=== PATIENT | male | born 1980 | race Caucasian/White ===

== ENCOUNTER 2018-02-14 12:41 | Outpatient (CLI) | payer BC, OTHER ==
--- NOTE | 2018-02-14 14:52 | RAD ---
PA AND LATERAL CHEST: Indication: History of dyspnea. Comparison: 11-24-14 FINDINGS: Lungs are clear. Cardiomediastinal silhouette is within normal limits. There is mild spondylosis of t he thoracic spine. The examination is not appreciably changed from the comparison study. IMPRESSION: No acute abnormality. POS: [facility]
== END 2018-02-14 12:42 | disposition home or self-care (01) ==
LOC: RAD 12:41
PROVIDERS: ATTEND Internal Medicine Critical Care Medicine
DX: R06.00 Dyspnea, unspecified (principal)
CPT/HCPCS: 71046

== ENCOUNTER 2018-05-01 01:39 | Emergency (ER) | payer BC ==
[2018-05-01] MEDS ORDERED: Activated Charcoal/Sorbitol 25 GM/120 ML TUBE ONE (01:50)
[2018-05-01 02:09] LABS: #Eosinphils 0.2 thou/uL (0.0-0.7); #Lymphocytes 3.5 thou/uL (1.20-3.40); #Neutrophils 5.4 thou/uL (1.40-6.50); %Basophils 0.5 % (0.0-1.0); %Eosinophils 1.9 % (0.0-10.0); %Lymphocytes 34.3 % (21.0-51.0); %Monocytes 10.2 % (0.0-10.0); %Neutrophils 53.1 % (42.0-75.0); Hemoglobin 17.4 g/dL (14.0-18.0); Mean Corpuscular HGB CONC 35.7 g/dL (32.0-36.0); Mean Corpuscular Hemoglobin 32.1 pg (27.0-31.0); Mean Corpuscular Volume 89.7 fl (80.0-94.0); Mean Platelet Volume 9.5 fL (7.4-10.4); Platelet Count 186 thou/uL (130-400); RBC Distribution Width 11.5 % (11.5-14.5); Red Blood Cell (RBC) Count 5.41 mill/uL (4.70-6.10); White Blood Cell (WBC) Count 10.1 thou/uL (4.8-10.8)
[2018-05-01 02:09] LABS: Base Excess-Venous -0.8 mmol/L (0 (+/- 2.5)); Bicarbonate (HCO3v) 22.8 mmol/L (1.0-85.0); CO2 Tension (PvCO2) 34.4 mmHg (41.0-51.0); Calcium, Ionized 1.09 mmol/L (1.12-1.32); Hemoglobin - Calc 16.9 g/dL (12.0-18.0); T. Carbon Dioxide 23.8 mmol/L (1.0-85.0); pH (Venous) 7.429 (7.35-7.45); vO2 Saturation-calc 96.3 % (94-98)
[2018-05-01 02:21] LABS: Acetaminophen Less than 6.0 mcg/mL (10.0-30.0); Alcohol Less than 10 mg/dL (Less than 10); CK (CPK) 355 U/L (30-200); Salicylate Less than 8.0 mg/dL (15.0-30.0)
[2018-05-01 02:22] LABS: ALT (SGPT) 20 U/L (8-55); AST (SGOT) 21 U/L (5-34); Albumin 4.1 g/dL (3.5-5.0); Alkaline Phosphatase 82 U/L (40-150); Anion Gap 14 mmol/L (10-20); BUN (Urea Nitrogen) 11 mg/dL (8.9-20.6); Bilirubin, Total 1.1 mg/dL (0.2-1.2); Calc. Creatinine Clearance 0 mL/min (70-130); Carbon Dioxide 22 mmol/L (22-29); Chloride 105 mmol/L (98-107); Estimated GFR-MDRD 59; Globulin 2.4 g/dL (2.4-3.5); Glucose 116 mg/dL (70-105); Potassium 4.1 mmol/L (3.5-5.1); Protein, Total 6.5 g/dL (6.0-8.3); Sodium 137 mmol/L (136-145)
[2018-05-01 05:14] LABS: Bilirubin Negative (Negative); Blood, Urine Negative (Negative); Clarity CLEAR (Clear); Glucose, Urine (Dipstick) Negative (Negative); Leukocyte Negative (Negative); Nitrite Negative (Negative); Protein, Urine (Dipstick) Negative (Neg-Trace); Specific Gravity, Urine 1.024 (1.002-1.036); pH, Urine 6.5 (5.0-9.0)
[2018-05-01 05:25] LABS: Amphetamine Detected (NotDetected); Barbiturates Screen Not Detected (NotDetected); Benzodiazepine Screen Not Detected (NotDetected); Cocaine Metabolite Screen Not Detected (NotDetected); Medtox Control Line Valid? VALID (VALID); Medtox Reader # READER 1; Methadone Not Detected (NotDetected); Methamphetamine Not Detected (NotDetected); Opiate Screen Not Detected (NotDetected); Oxycodone Screen Not Detected (NotDetected); Phencyclidine (PCP) Not Detected (NotDetected); THC/Cannabinoid Screen Not Detected (NotDetected); Tricyclic Screen Detected (NotDetected)
[2018-05-01 06:40] LABS: Acetaminophen Less than 6.0 mcg/mL (10.0-30.0); Alcohol Less than 10 mg/dL (Less than 10); Salicylate Less than 8.0 mg/dL (15.0-30.0)
== END 2018-05-01 18:00 ==
LOC: ERS 01:39
DX: T39.312A Poisoning by propionic acid derivatives, intentional self-harm, initial encounter (principal); F32.9 Major depressive disorder, single episode, unspecified; E03.9 Hypothyroidism, unspecified; K21.9 Gastro-esophageal reflux disease without esophagitis; G43.909 Migraine, unspecified, not intractable, without status migrainosus; F41.9 Anxiety disorder, unspecified; Z79.899 Other long term (current) drug therapy
CPT/HCPCS: 36415; 80053; 80306; 80307; 81003; 82330; 82550; 82803; 84443; 85025; 93005; 96360

== ENCOUNTER 2020-09-06 08:17 | Outpatient (CLI) | payer BC ==
--- NOTE | 2020-09-06 11:54 | RAD ---
EXAM: XR UGI Single Contrast No Air PROVIDED CLINICAL HISTORY: Morbid obesity. Upper GI prior to bariatric surgery. COMPARISON: None FINDINGS: A single contrast upper GI was performed. Normal esophageal motility was demonstrated during the exam . The esophagus has a normal appearance without evidence of a mucosal irregularity or narrowing. No significant hiatal hernia is appreciated. There is no gastroesophageal reflux noted during the exam. The stomach, duodenum, and visualized proximal small bowel demonstrate a normal appearance. Ligament of Treitz is located in normal position. IMPRESSION: Normal upper GI.
== END 2020-09-06 08:18 | disposition home or self-care (01) ==
LOC: RAD 08:17
PROVIDERS: ATTEND Specialist
DX: E66.01 Morbid (severe) obesity due to excess calories (principal)
CPT/HCPCS: 74240

== ENCOUNTER 2020-09-16 10:06 | Outpatient (CLI) | payer BC | END 2020-09-16 10:07 | disposition home or self-care (01) | LOC: DTY/OP 10:06 | PROVIDERS: ATTEND Specialist | DX: Z01.818 Encounter for other preprocedural examination (principal); E66.01 Morbid (severe) obesity due to excess calories | CPT/HCPCS: 36415; 80053; 80061; 82306; 82607; 82728; 82746; 83036; 83540; 84425; 84436; 84443; 84480; 85025; 97802 ==

== ENCOUNTER 2020-10-29 06:16 | Outpatient (CLI) | payer BC, OTHER ==
[2020-09-03 12:38] LABS: SARS-CoV-2 MS2 Positive; SARS-CoV-2 N Gene Negative; SARS-CoV-2 S Gene Negative; SARS-CoV-2 by NAA Not Detected (NotDetected); SARS-CoV-2 orf1ab Negative
[2020-10-29 16:46] LABS: SARS-CoV-2 MS2 Positive; SARS-CoV-2 N Gene Negative; SARS-CoV-2 S Gene Negative; SARS-CoV-2 by NAA Not Detected (NotDetected); SARS-CoV-2 orf1ab Negative
== END 2020-10-29 06:17 | disposition home or self-care (01) ==
LOC: LABBT 06:16
PROVIDERS: ATTEND Specialist
DX: Z01.812 Encounter for preprocedural laboratory examination (principal); Z20.828 Contact with and (suspected) exposure to other viral communicable diseases; E29.1 Testicular hypofunction; K21.9 Gastro-esophageal reflux disease without esophagitis; E66.01 Morbid (severe) obesity due to excess calories; E11.9 Type 2 diabetes mellitus without complications; I10 Essential (primary) hypertension
CPT/HCPCS: 87635; U0003

== ENCOUNTER 2020-10-29 08:15 | Inpatient (IN) | payer BC ==
--- NOTE | 2020-11-01 13:30 | HP ---
ADDENDUM: This is an addendum to [facility] dictation #[id number], dictated 08/26/2020. Zachary Pimentel is a 39-year-old male patient, scheduled for laparoscopic gastric bypass with comorbidities of GERD, type 2 diabetes mellitus, hypertension, PTSD. The patient was seen on 08/26/2020 initially with the initial presentation, 5 foot 10 inches, 265 pounds, 38 BMI and since that time, has lost weight 256 pounds, 36 BMI, now was scheduled for laparoscopic sleeve gastrectomy. He has seen Dr. Arnav Wilkins in the past, had normal echocardiogram, 70% ejection fraction with diastolic dysfunction, grade 2, without any coronary artery disease. The patient is asymptomatic from cardiac standpoint. The patient is on numerous medications. He will need to crush these or empty the capsules per Pharmacy. He understands risks and benefits. Questions answered. We will proceed with laparoscopic gastric bypass. See his recent history and physical #[id number], dictated 08/26/2020 for details of past history and medication list. PHYSICAL EXAMINATION: VITAL SIGNS: On initial presentation, 265 pounds, 38 BMI. Today, 256 pounds, 36 BMI. 121/76, 70, 97.3 degrees. LUNGS: Clear to auscultation. CARDIAC: Regular rate and rhythm. No murmur or gallop. ABDOMEN: Soft, nontender, obese, protuberant. EXTREMITIES: Unremarkable. ASSESSMENT AND PLAN: Morbid obesity with significant reflux and diabetes mellitus. Plan, laparoscopic gastric bypass. He understands risks and benefits and consents. Job ID: [id number]
[2020-11-02 12:59] VITALS: BMI 38.0
[2020-11-03] MEDS ORDERED: SUGAMMADEX SODIUM 200 MG/2 ML VIAL ONE (10:25)
[2020-11-03] MEDS ORDERED: Fentanyl 250 MCG/5 ML VIAL ONE (10:25)
[2020-11-03] MEDS ORDERED: Bupivacaine 0.25% HCL 30 ML VIAL ONE (10:28)
[2020-11-03] MEDS ORDERED: Lidocaine 1% w/Epinephrine 1:100K 20 ML VIAL ONE (10:28)
[2020-11-03] MEDS ORDERED: Acetaminophen 500 MG TAB ONE (10:32)
[2020-11-03] MEDS ORDERED: Scopolamine 1.5 mg/72 hour Patch ONE (10:32)
[2020-11-03] MEDS ORDERED: Ketorolac Tromethamine 30 MG/ML VIAL ONE ×2 (10:33→17:55)
[2020-11-03] MEDS ORDERED: cefOXitin Sodium/Dextrose 2 GM/50 ML BAG ONE (10:33)
[2020-11-03] MEDS ORDERED: Heparin 5,000 UNITS/ML VIAL ONE (10:33)
[2020-11-03] MEDS ORDERED: Succinylcholine 200 MG/10 ml SYRINGE FS ONE (10:35)
[2020-11-03] MEDS ORDERED: ePHEDrine 50 MG/ML VIAL ONE (10:35)
[2020-11-03] MEDS ORDERED: Rocuronium Bromide 10 MG/ML (10ML VIAL) ONE (10:35)
[2020-11-03] MEDS ORDERED: Glycopyrrolate 0.2 MG/ML 5 ML SYRINGE ONE (10:35)
[2020-11-03] MEDS ORDERED: PROPOFOL 200 MG/20 ML VIAL ONE (10:35)
[2020-11-03] MEDS ORDERED: Dexamethasone 20 MG/5 ML VIAL ONE (10:35)
[2020-11-03] MEDS ORDERED: Ondansetron PF 4 MG/2 ML Vial ONE ×2 (10:35→21:46)
[2020-11-03] MEDS ORDERED: Lidocaine 1% PF 5 ML VIAL ONE (10:35)
[2020-11-03] MEDS ORDERED: Morphine 4 MG/ML VIAL SLOW IVP PRN (11:04)
[2020-11-03] MEDS ORDERED: Hydrocodone-Acetamin 15 ML UDCUP PO PRN (11:04)
[2020-11-03] MEDS ORDERED: Dextrose 50% Abboject 50 ML SYRINGE SLOW IVP PRN (11:04)
[2020-11-03] MEDS ORDERED: Dextrose 5% in Water 1,000 ML IV PRN (11:04)
[2020-11-03] MEDS ORDERED: HumaLOG 300 UNITS/3 ML VIAL SC PRN (11:04)
[2020-11-03] MEDS ORDERED: Morphine 2 MG/ML VIAL SLOW IVP PRN ×2 (11:04→11:26)
[2020-11-03] MEDS ORDERED: hydrALAZINE 20 MG/ML VIAL SLOW IVP PRN (11:04)
[2020-11-03] MEDS ORDERED: diphenhydrAMINE 50 MG/ML VIAL IVP PRN (11:04)
[2020-11-03] MEDS ORDERED: Ondansetron PF 4 MG/2 ML Vial IVP PRN (11:04)
[2020-11-03] MEDS ORDERED: Acetaminophen 500 MG TAB PO PRN (11:08)
[2020-11-03] MEDS ORDERED: Fentanyl 100 MCG/2 ML VIAL ONE ×3 (15:23→20:21)
--- NOTE | 2020-11-03 15:27 | OP ---
DATE OF PROCEDURE: 11/03/2020 PREOPERATIVE DIAGNOSES: 1. Morbid obesity. 2. Reflux. 3. Diabetes mellitus, type 2. 4. Hypertension. 5. Initial presentation with 265 pounds and 38 BMI and preoperatively 250 pounds and 36 BMI. POSTOPERATIVE DIAGNOSES: 1. Morbid obesity. 2. Reflux. 3. Diabetes mellitus, type 2. 4. Hypertension. 5. Initial presentation with 265 pounds and 38 BMI and preoperatively 250 pounds and 36 BMI. PROCEDURES PERFORMED: 1. Laparoscopic Frankie-en-Y gastric bypass, 100 cm Frankie limb antecolic. 2. Adhesiolysis, omentum adherent to the anterior abdominal wall. 3. Completion endoscopy. ANESTHESIA: General, local with 0.25% Marcaine 60 mL, mixed with 1% Xylocaine with epinephrine 20 mL. FINDINGS: At the end of the operation, a gastric tube could not be placed in the pouch. We had video difficulty, technical problems with the malfunction of the endoscopic video screen. We obtained another video screen. Finally, after failure, we placed the nasogastric tube and was able to place endoscope, we checked the anastomosis under water without leak. 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 DESCRIPTION OF PROCEDURE: The patient was taken to the operating room where in the supine position, abdomen was prepared with ChloraPrep and draped in routine fashion. Local anesthetic was infiltrated in the skin and subcutaneous tissue about all port sites. Supraumbilical incision made, pneumoperitoneum to 15 mmHg obtained with a Veress needle, replacing with a 5 port, video laparoscope inserted. Bilateral upper abdominal incision made at midclavicular lines and a 15-mm port placed on the patient's left and 12 port on the right. Bilateral far lateral subcostal incision made and a 5 port was placed. There were adhesions noted. Right lower quadrant and left lower quadrant incisions made and 5 ports placed and adhesion free area and laparoscopic adhesiolysis, freeing the omentum to enable the procedure. Good hemostasis noted. The omentum was then split in the middle to the left of the falciform ligament up to the transverse colon, reflected cephalad. Ligament of Treitz identified. At approximately 25 to 30 cm from the ligament of Treitz, small bowel divided with a white load ELIZABETH and mesentery divided with a white load ELIZABETH. Good hemostasis noted. Frankie limb devascularized for about 8 cm with the LigaSure, dividing the adjacent mesentery. Frankie limb measured to 100 cm and jejunojejunostomy formed with a single fire of the white load stapler and the common enterotomy closed with 2 fires of the ELIZABETH white load stapler. Mesenteric defect closed with interrupted [id number] sutures of 3-0 Vicryl laparoscopically. The patient was placed in reverse Trendelenburg and subxiphoid incision made. Trell liver retractor placed, reflecting the left lobe of liver superiorly. Approximately 4 to 5 cm from the GE junction on the lesser curvature, the lesser curvature was cleared and the lesser sac entered and all instruments removed from the stomach, single fire transversely with Endo-ELIZABETH blue load stapler completed. Once this was completed, a gastrostomy made just lateral inferior to this initial horizontal fire at the staple line and a 25-mm EEA anvil placed up to the gastric pouch within the hat suture, connected to the 5-mm band passer, passed up to the gastric pouch after the staple line and cutting current used to make a small opening and the spike on the anvil brought out along with the suture. The gastrotomy closed with a single fire of the ELIZABETH blue load stapler with SeamGuards. SeamGuards were used to create our partition of the stomach up just toward the angle of His, although just slightly to the left of the angle of His. There was a very redundant fundus and stomach, making this difficult, but this was accomplished, and once it was finally fired, there were some serosal tears on the fundus, and thus, upper fundus was mobilized and serial fires of the ELIZABETH blue load stapler took out this redundant fundus with serosal tears removing, staple line was hemostatic and secured with clips. Hemostasis was gained with clips and LigaSure. Good hemostasis noted. At this point, the Frankie limb which had been devascularized was opened on the devascularized segment and a 25-mm EEA stapler placed through the 15-mm port site in the left upper quadrant and directed into this Frankie limb, advancing the post towards the anti mesenteric border and advancing out under laparoscopic visualization and mated to the anvil and the stomach pouch and then these approximated with a torque fire range. The Frankie limb had been evaluated, noted to be in good position without torsion. The anastomosis was completed, firing the stapler, loosening, removing intact donuts. Good hemostasis noted. The devascularized segment of the Frankie limb divided with 2 fires of the white load ELIZABETH stapler. Gastrojejunostomy anastomosis was reinforced with seromuscular sutures of 3-0 Vicryl, right posterolateral, left posterolateral, left anterolateral. Once this was completed, orogastric tube was tend to be placed, but could not after multiple tries and multiple tubes. At this point, endoscope obtained and we had malfunction of the video screen, adding almost 45 minutes to the operation. We obtained another video endoscopic apparatus and had acceptable videos to complete the endoscopy. Endoscope placed under direct visualization per os down the esophagus and the stomach pouch was then inflated. The small bowel inflated, checked under water and there was no leak at the anastomosis. It was deflated and scope removed. Esophagus normal otherwise. Irrigant and pneumoperitoneum evacuated after a 15-mm port site closed, fascia with [id number] suture of 0 Vicryl on GraNee needle. All wounds irrigated. All skin incisions closed with 4-0 Monocryl subdermal. The patient tolerated the procedure well. Job ID: [id number]
[2020-11-03] MEDS: Ketorolac Tromethamine 30 MG/ML VIAL IVP SCH ×3 (17:58→23:21)
[2020-11-03] MEDS ORDERED: Nortriptyline HCl 25 MG CAP PO SCH (21:00)
[2020-11-03] MEDS ORDERED: Enoxaparin Sodium 40 MG/0.4 ML SYRINGE SC SCH (21:00)
[2020-11-03] MEDS ORDERED: Propranolol HCl LA 60 MG CAP PO SCH (21:00)
[2020-11-03] MEDS ORDERED: Losartan 25 MG TAB PO SCH (21:00)
[2020-11-03] MEDS ORDERED: clonazePAM 1 MG TAB PO SCH (21:00)
[2020-11-03] MEDS: Lactated Ringer's 1,000 ML IV SCH ×2 (21:21→22:50)
[2020-11-03] MEDS: Morphine 4 MG/ML VIAL SLOW IVP PRN (23:23)
[2020-11-04] MEDS: Morphine 4 MG/ML VIAL SLOW IVP PRN ×2 (04:11→09:01)
[2020-11-04 05:20] LABS: #Lymphocytes 2.2 thou/uL (1.20-3.40); #Monocytes 1.2 thou/uL (0.11-0.59); #Neutrophils 7.3 thou/uL (1.40-6.50); %Basophils 0.2 % (0.0-1.0); %Eosinophils 0.1 % (0.0-10.0); %Lymphocytes 20.6 % (21.0-51.0); %Monocytes 11.4 % (0.0-10.0); %Neutrophils 67.6 % (42.0-75.0); Hemoglobin 16.6 g/dL (14.0-18.0); Mean Corpuscular HGB CONC 34.3 g/dL (32.0-36.0); Mean Corpuscular Hemoglobin 31.3 pg (27.0-31.0); Mean Corpuscular Volume 91.2 fL (78.0-98.0); Mean Platelet Volume 10.2 fL (7.4-10.4); Platelet Count 220 thou/uL (130-400); RBC Distribution Width 12.5 % (11.5-14.5); White Blood Cell (WBC) Count 10.7 thou/uL (4.8-10.8)
[2020-11-04] MEDS: Ketorolac Tromethamine 30 MG/ML VIAL IVP SCH (05:36)
[2020-11-04 05:43] LABS: Anion Gap 14 mmol/L (10-20); BUN (Urea Nitrogen) 16 mg/dL (8.9-20.6); Calc. Creatinine Clearance 139 mL/min (70-130); Carbon Dioxide 20 mmol/L (22-29); Chloride 103 mmol/L (98-107); Glucose 101 mg/dL (70-105); Potassium 4.3 mmol/L (3.5-5.1); Sodium 133 mmol/L (136-145)
[2020-11-04] MEDS ORDERED: Levothyroxine 150 MCG TAB PO SCH (06:00)
[2020-11-04] MEDS: Lactated Ringer's 1,000 ML IV SCH ×2 (06:53→17:02)
[2020-11-04] MEDS ORDERED: Lisdexamfetamine Dimesylate [Vyvanse] 70 MG Capsule PO SCH (09:00)
[2020-11-04] MEDS ORDERED: Pantoprazole 40 MG VIAL IVP SCH (09:00)
[2020-11-04 11:53] VITALS: BP 126/78; TEMP 98.4
--- NOTE | 2020-11-04 13:07 | DIS ---
DATE OF ADMISSION: 11/03/2020 DATE OF DISCHARGE: 11/04/2020 DISCHARGE DIAGNOSES: Morbid obesity, refractory to nonsurgical weight loss efforts; gastroesophageal reflux disease; diabetes mellitus, type 2; hypertension, on initial presentation 265 pounds and 38 BMI, preoperative assessment 250 pounds and 36 BMI after preoperative diet counseling. PROCEDURE: Laparoscopic Frankie-en-Y gastric bypass with resection of portion of the fundus. Discharge hemoglobin 16.6. DISCHARGE MEDICATIONS: 1. Protein supplements OTC. 2. Omeprazole daily. 3. Vitamins. Resume home medications; 1. Testosterone. 2. Vitamin D2. Glucose in the hospital 101. Probably, at this time, we will hold his metformin. He will take Accu-Cheks and adjust his insulin accordingly. 1. Resume his either Dexilant or OTC Prilosec. 2. Hydrocodone elixir prescribed as needed. Pain refractory to Tylenol. 3. Avoid NSAIDs. HISTORY: A 39-year-old male with morbid obesity, refractory to medical management, presents to our bariatric program with severe GERD, recommended Frankie-en-Y gastric bypass, for which he underwent preoperative counseling, dietary procedural stepwise progression of his diet postoperatively and he did well with significant weight loss preoperatively, and in the hospital, he did well postoperatively. He tolerated liquids and was sent home with medication adjustments as noted above. He did have some adhesions to the abdominal wall, taken down omentum to enable the above procedure. Follow up in my office in 2 to 3 weeks. Job ID: [id number]
== END 2020-11-04 13:26 | disposition home or self-care (01) | DRG 621 ==
LOC: SURG A 11-03 09:54 → SJJU 11-03 22:32
PROVIDERS: ADMIT Specialist; ATTEND Specialist
PROC: 0D164ZA Bypass Stomach to Jejunum, Percutaneous Endoscopic Approach (ICD-10-PCS; principal; 2020-11-03)
PROC: 0DJ08ZZ Inspection of Upper Intestinal Tract, Via Natural or Artificial Opening Endoscopic (ICD-10-PCS; 2020-11-03)
DX: E66.01 Morbid (severe) obesity due to excess calories (principal); K21.9 Gastro-esophageal reflux disease without esophagitis; E11.9 Type 2 diabetes mellitus without complications; I10 Essential (primary) hypertension; F43.10 Post-traumatic stress disorder, unspecified; I25.10 Atherosclerotic heart disease of native coronary artery without angina pectoris; Z68.38 Body mass index [BMI] 38.0-38.9, adult
CPT/HCPCS: 36415; 36416; 80048; 85025; C9113; J0694; J1100; J1644; J1650; J1885; J2270; J2405; J2704; J3010; J3490; S0020

== ENCOUNTER 2020-11-05 10:17 | Inpatient (IN) | payer BC ==
[2020-11-05] MEDS ORDERED: Ondansetron PF 4 MG/2 ML Vial ONE (10:50)
[2020-11-05 10:58] LABS: #Lymphocytes 2.2 thou/uL (1.20-3.40); #Monocytes 1.5 thou/uL (0.11-0.59); #Neutrophils 10.3 thou/uL (1.40-6.50); %Basophils 0.3 % (0.0-1.0); %Eosinophils 0.1 % (0.0-10.0); %Lymphocytes 15.4 % (21.0-51.0); %Monocytes 10.8 % (0.0-10.0); %Neutrophils 73.4 % (42.0-75.0); Hemoglobin 17.6 g/dL (14.0-18.0); Mean Corpuscular HGB CONC 34.3 g/dL (32.0-36.0); Mean Corpuscular Hemoglobin 30.8 pg (27.0-31.0); Mean Corpuscular Volume 89.9 fL (78.0-98.0); Mean Platelet Volume 8.6 fL (7.4-10.4); Platelet Count 223 thou/uL (130-400); RBC Distribution Width 12.4 % (11.5-14.5); Red Blood Cell (RBC) Count 5.72 mill/uL (4.70-6.10); White Blood Cell (WBC) Count 14.1 thou/uL (4.8-10.8)
[2020-11-05 11:00] LABS: Bilirubin Small (Negative); Blood, Urine Trace (Negative); Glucose, Urine (Dipstick) Negative (Negative); Ketone, Urine > or equal to 80 mg/dL (Negative); Leukocyte Negative (Negative); Nitrite Negative (Negative); Protein, Urine (Dipstick) Trace mg/dL (Neg-Trace); Urobilinogen 0.2 mg/dL (Less than 2)
[2020-11-05] MEDS ORDERED: Piperacillin/Tazobactam 4.5 GM VIAL ONE (11:00)
[2020-11-05 11:01] LABS: Clarity Clear (Clear)
[2020-11-05 11:02] LABS: Specific Gravity, Urine 1.026 (1.002-1.036)
[2020-11-05 11:07] LABS: Bacteria/HPF None Seen HPF (None Seen); RBC/HPF None Seen HPF (0-3); Squamous Epithelial None Seen HPF (0-3); WBC/HPF None Seen HPF (0-3)
--- NOTE | 2020-11-05 11:10 | RAD ---
EXAM: Single view of the chest HISTORY: Fever after gastric bypass COMPARISON: 02/14/2018 FINDINGS: Single view of the chest shows a normal sized cardiomediastinal silhouette. Opacity is seen in the left lung base may represent atelectasis or an infiltrate. No acute osseous abnormality. IMPRESSION: Left basilar atelectasis versus infiltrate.
[2020-11-05 11:19] LABS: ALT (SGPT) 201 U/L (8-55); AST (SGOT) 91 U/L (5-34); Alkaline Phosphatase 71 U/L (40-110); Anion Gap 19 mmol/L (10-20); BUN (Urea Nitrogen) 9 mg/dL (8.9-20.6); Bilirubin, Total 1.3 mg/dL (0.2-1.2); Calc. Creatinine Clearance 0 mL/min (70-130); Calcium 8.5 mg/dL (7.8-10.44); Carbon Dioxide 18 mmol/L (22-29); Chloride 102 mmol/L (98-107); Globulin 3.1 g/dL (2.4-3.5); Glucose 119 mg/dL (70-105); Potassium 3.8 mmol/L (3.5-5.1); Protein, Total 7.1 g/dL (6.0-8.3); Sodium 135 mmol/L (136-145)
--- NOTE | 2020-11-05 11:23 | HP ---
HISTORY OF PRESENT ILLNESS: Zachary Pimentel is a 39-year-old male patient, who three days ago had a laparoscopic Frankie-en-Y gastric bypass, 100 cm Frankie limb antecolic 25-mm EEA stapler. The patient went home yesterday, tolerating liquids. During the operation, we could not get an NG tube to reliably pass thus, endoscope was used to place the gastric pouch, insufflating the gastric pouch, checking the anastomosis under water without leak. During the operation, also the patient had a very redundant fundus of the stomach and a section of the fundus was resected due to serosal tears due to the manipulation. Postoperatively, the patient did very well. He was discharged home with a white count of 9.3, today it is 10.7. He was discharged home with a hemoglobin of 16.6. We are waiting on the repeat results. Laboratories have been ordered and pending. The patient was COVID negative on 10/29. The patient called stating he had a fever to 100.5-101.0 degrees. He felt increased pain. He was to be directly admitted to the hospital, but there were no hospital beds. Thus, he was sent to the emergency room. In the emergency room, he was seen and his heart rate is 120, blood pressure 118/78, respiratory rate 18. The patient does report some dyspnea and reports that his life has recently become COVID positive. ALLERGIES: MORPHINE, TOBACCO. SOCIAL HISTORY: Alcohol, none. PAST HISTORY: Please see history and physical [facility] dictation #[id number] dictated on 08/26/2020 for details of his past history. Prior to this operation, patient has had a normal echocardiogram and is asymptomatic from a cardiac standpoint and takes medications for PTSD. The patient is 5 feet 10, weighs 265 pounds, BMI 38 and just prior to the operation, 256 pounds, BMI 36. Comorbidities include reflux and diabetes mellitus. In the most recent history and physical, he states he was scheduled for sleeve but he is actually scheduled for a gastric bypass. PHYSICAL EXAMINATION: LUNGS: Clear to auscultation. CARDIAC: Sinus tachycardia. ABDOMEN: Laparoscopic incisions are well healed, no evidence of infection. Abdomen with occasional bowel sounds. Soft with mild guarding in the upper abdomen. EXTREMITIES: Unremarkable. LABORATORY DATA: Laboratories pending. ASSESSMENT AND PLAN: Postoperative tachycardia and inability to tolerate liquids. We will give him IV fluid bolus, IV fluids. Obtain a CAT scan with IV and limited oral contrast to evaluate his gastrojejunostomy. We will obtain a rapid COVID swab which has been approved given his situation of COVID as above. We will check a chest x-ray. Job ID: [id number]
[2020-11-05] MEDS ORDERED: Ketorolac Tromethamine 30 MG/ML VIAL ONE (11:28)
[2020-11-05] MEDS ORDERED: Iopamidol-370 76% 500 ML 1 ML ONE (11:51)
[2020-11-05 12:16] LABS: SARS-CoV-2 NAA Rapid Test DETECTED (NotDetected)
--- NOTE | 2020-11-05 12:28 | CT ---
CT Abdomen Pelvis W Con History: Abdominal pain with fever Comparison: CT examination 2016 Findings: 2 separate axial sequences were obtained through the abdomen and pelvis. Mild atelectasis l kristie bases. The root and pancreatic of biliary limbs are intact. No evidence for leak on the gastric pouch. Spleen is intact. The kidneys are intact. No retroperitoneal adenopathy. The small arterial enhancing lesion within the right lobe of the liver versus hemangioma or vascular shunt. Pancreas is unremarkable along the adrenal glands. No significant free peritoneal fluid. No peripherally enhancing collection. No abscess. Impression: 1. No evidence for leak with the recent Frankie-en-Y gastric bypass. 2. Small enhancing mass peripheral aspect hepatic segment 8 measuring 9 mm likely hemangioma versus v ascular shunt and unchanged from 2016. 3. No acute inflammatory process.
[2020-11-05] MEDS ORDERED: hydrALAZINE 20 MG/ML VIAL SLOW IVP PRN (14:09)
[2020-11-05] MEDS ORDERED: Acetaminophen 325 MG/10.15 ML UDCUP PO PRN (14:09)
[2020-11-05] MEDS ORDERED: diphenhydrAMINE 50 MG/ML VIAL IVP PRN (14:09)
[2020-11-05] MEDS ORDERED: Dextrose 5% in Water 1,000 ML IV PRN (14:09)
[2020-11-05] MEDS ORDERED: Hydrocodone-Acetamin 15 ML UDCUP PO PRN (14:09)
[2020-11-05] MEDS ORDERED: Dextrose 50% Abboject 50 ML SYRINGE SLOW IVP PRN (14:09)
[2020-11-05] MEDS ORDERED: HumaLOG 300 UNITS/3 ML VIAL SC PRN (14:09)
[2020-11-05] MEDS ORDERED: Ketorolac Tromethamine 30 MG/ML VIAL IVP SCH (14:45)
[2020-11-05] MEDS ORDERED: Enoxaparin Sodium 40 MG/0.4 ML SYRINGE SC SCH ×2 (15:00→21:00)
[2020-11-05] MEDS ORDERED: Albuterol 200 PUFF (6.7GM INHALER) INH PRN (15:08)
[2020-11-05 16:02] VITALS: BMI 37.9
[2020-11-05] MEDS: Lactated Ringer's 1,000 ML IV SCH ×2 (16:19→22:01)
[2020-11-05] MEDS: clonazePAM 1 MG TAB PO SCH (20:03)
[2020-11-05] MEDS: Enoxaparin Sodium 40 MG/0.4 ML SYRINGE SC SCH (20:03)
[2020-11-05] MEDS: Nortriptyline HCl 25 MG CAP PO SCH (20:04)
[2020-11-05] MEDS ORDERED: Propranolol HCl LA 60 MG CAP PO SCH (21:00)
[2020-11-05] MEDS: Benzonatate 100 MG CAP PO PRN (22:01)
[2020-11-05] MEDS: Morphine 4 MG/ML VIAL SLOW IVP PRN (22:07)
[2020-11-05] MEDS: Ondansetron PF 4 MG/2 ML Vial IVP PRN (22:11)
[2020-11-06] MEDS: Morphine 4 MG/ML VIAL SLOW IVP PRN (01:57)
[2020-11-06] MEDS: Lactated Ringer's 1,000 ML IV SCH ×4 (05:50→20:30)
[2020-11-06] MEDS: Ketorolac Tromethamine 30 MG/ML VIAL IVP PRN ×3 (05:56→21:46)
[2020-11-06 06:09] LABS: #Eosinphils 0.1 thou/uL (0.0-0.7); #Monocytes 0.9 thou/uL (0.11-0.59); #Neutrophils 4.5 thou/uL (1.40-6.50); %Basophils 0.2 % (0.0-1.0); %Eosinophils 1.2 % (0.0-10.0); %Lymphocytes 26.5 % (21.0-51.0); %Monocytes 12.2 % (0.0-10.0); %Neutrophils 59.9 % (42.0-75.0); Hemoglobin 14.9 g/dL (14.0-18.0); Mean Corpuscular HGB CONC 34.6 g/dL (32.0-36.0); Mean Corpuscular Volume 92.6 fL (78.0-98.0); Mean Platelet Volume 8.8 fL (7.4-10.4); Platelet Count 169 thou/uL (130-400); RBC Distribution Width 12.4 % (11.5-14.5); Red Blood Cell (RBC) Count 4.64 mill/uL (4.70-6.10); White Blood Cell (WBC) Count 7.5 thou/uL (4.8-10.8)
[2020-11-06 06:21] LABS: Anion Gap 19 mmol/L (10-20); BUN (Urea Nitrogen) 6 mg/dL (8.9-20.6); Calc. Creatinine Clearance 167 mL/min (70-130); Calcium 7.6 mg/dL (7.8-10.44); Carbon Dioxide 18 mmol/L (22-29); Chloride 102 mmol/L (98-107); Glucose 86 mg/dL (70-105); Potassium 3.5 mmol/L (3.5-5.1); Sodium 135 mmol/L (136-145)
--- NOTE | 2020-11-06 07:27 | HP ---
HISTORY OF PRESENT ILLNESS: Mr. Pimentel is a 39-year-old male, status post 2 days ago laparoscopic Frankie-en-Y gastric bypass, 25 mm EEA stapler, antecolic, 100 cm Frankie limb with in addition portion of the gastric fundus resected due to redundancy and serosal tear sustained during the operation, tolerated liquids yesterday, was sent home, but this morning, became febrile, dyspneic, developed malaise, and was brought to the emergency room, where evaluation revealed that chest x-ray revealed postoperative atelectatic changes without infiltrates that would suggest COVID pneumonia and CT scan of abdomen and pelvis p.o. and IV contrast with delayed images revealing no evidence for a leak or complication related to his gastric bypass bariatric surgery. The patient has been also unable to tolerate liquids overnight and is tachycardic and dehydrated. Post bariatric surgery, bariatric patients are kept on bariatric liquids for 2 weeks, advanced to a puree in weeks 2 and 4, and a softer diet after week 4. The patient will be placed on bariatric liquids as tolerated once his nausea resolves and continue liquids for 2 weeks postoperatively. Once the patient is tolerating liquids, he could convalesce from his COVID illness if possible at home. I have consulted Dr. Yeung in case the patient qualifies for antiviral therapy based on his postoperative state. His saturations however were 96% on room air in the emergency room. The patient has been unemployed for the past 2 to 3 years due to PTSD and depression. He is on disability for that. He is followed by Dr. Franklin at [facility]. The patient had severe reflux preoperatively necessitating gastric bypass instead of sleeve. He has a past history of trl-[id number] diabetes mellitus on oral hypoglycemics; type-2 diabetes mellitus; hypertension; PTSD; depression; severe GERD, on 2 PPIs; and continued breakthrough symptoms. He has ADD as well. In high school, he weighed 231 pounds, went on diet, lost down to 155 pounds in high school, but after his high school, began gaining weight mostly after the of his children, for which he has 5. He is . His heaviest weight is 270 pounds. He presented to me at 265 pounds, 38 BMI. ALLERGIES: NONE. TOBACCO: None. ALCOHOL: None. PREHOSPITALIZATION MEDICATIONS: 1. Nortriptyline 150 mg a day. 2. Losartan 25 mg a day. 3. Metformin 500 mg a day. 4. Minocycline 100 mg twice a day. 5. Dexilant 60 mg twice a day. 6. Deplin 15 mg a day. 7. Vyvanse 70 mg a day. 8. Propranolol ER 120 mg a day. 9. Famotidine 40 mg a day. 10. Lorazepam 1 mg a day. 11. Anastrozole 0.5 mg twice a week. 12. Testosterone weekly. 13. Levothyroxine daily. 14. Vitamin D2. FAMILY HISTORY: His mother had a heart transplant and of hypertrophic cardiomyopathy after transplant. PAST SURGICAL HISTORY: 1. Umbilical cyst removed. 2. Urethral cyst removed. 3. Cholecystectomy. 4. Laparoscopic recent Frankie-en-Y gastric bypass as noted above. FAMILY HISTORY: Noncontributory. REVIEW OF SYSTEMS: Noncontributory. PHYSICAL EXAMINATION: VITAL SIGNS: Blood pressure 178/82, pulse 133, respirations 16, temperature 99.6 degrees, saturation 92% on room air, latter ER stay initially 96% to 94% on room air. HEAD, EARS, EYES, NOSE, AND THROAT: Unremarkable. LUNGS: Clear to auscultation. No wheezing. CARDIAC: Sinus tachycardia. ABDOMEN: Postoperative tenderness, mild tenderness. No peritoneal signs. Surgical laparoscopic wounds look good without evident problems. EXTREMITIES: Unremarkable. LABORATORY DATA: Sodium 135, potassium 3.8, BUN 9, creatinine 1.16, lactic acid 1.2, bilirubin 1.3, AST 91, ALT 201. COVID serology positive. White count 14, differential unremarkable, hemoglobin 10.6. ASSESSMENT AND PLAN: 1. COVID illness. Admit to medical isolation, but incentive spirometer, up in a chair, walking about the room as much as possible. 2. Lovenox twice a day for DVT prophylaxis, considering his COVID illness and postoperative state. 3. CT scan negative for leak IV and oral contrast. I believe his illness, fever, and tachycardia are due to dehydration and COVID illness. Consult Dr. Yeung for his input. 4. Dehydration, IV fluid hydration, hydrate. Postoperatively, when he tolerates liquids, if medically fit, he can be discharged home to recover from his COVID illness at home, but would want to assure he is tolerating liquids first. He can start bariatric liquids, which he should be on for 2 weeks. Advance to puree in weeks 2 to 4 and soft diet after week 4. He will need to crush his medications, status post Frankie-en-Y gastric bypass. Job ID: [id number]
[2020-11-06] MEDS: Enoxaparin Sodium 40 MG/0.4 ML SYRINGE SC SCH ×2 (07:51→20:29)
[2020-11-06] MEDS: Pantoprazole 40 MG VIAL IVP SCH (07:52)
[2020-11-06] MEDS ORDERED: Propranolol 40 MG TAB PO SCH ×2 (09:00)
[2020-11-06] MEDS ORDERED: guaiFENesin 100 MG/5 ML UDCUP PO PRN (09:12)
--- NOTE | 2020-11-06 13:33 | CON ---
DATE OF CONSULTATION: 11/06/2020 REASON FOR CONSULTATION: COVID-19 and recent gastric bypass surgery. HISTORY OF PRESENT ILLNESS: A 39-year-old, patient of Dr. Fox, history of obesity, hypothyroidism, GERD, who 3 days before admission had a laparoscopic Frankie-en-Y gastric bypass and did well postoperatively and discharged. Apparently he had some fever postoperatively up to 101.0. He was admitted to the hospital. A CT scan done on November 05 did not show any evidence of leak. A small enhancing mass in peripheral aspect of hepatic segment, but no other inflammatory process. No comment was made on the lung images. He had a chest x-ray in the emergency room, which showed atelectasis in the left basilar area and a SARS-CoV2 RT PCR was positive on November 05. A previous RT PCR for SARS-CoV2 was negative on October 29. The patient was admitted. He is currently doing a little better, still feeling some myalgias, some nausea, but no more vomiting. Some cough. No chest pain. Mild abdominal pain. No genitourinary symptoms. No diarrhea. PAST MEDICAL HISTORY: Obesity, hypothyroidism, GERD. SOCIAL HISTORY: Drinks occasionally, never a smoker. ALLERGIES: MORPHINE. FAMILY HISTORY: Noncontributory. CURRENT MEDICATIONS: 1. Klonopin. 2. Benadryl. 3. Lovenox. 4. Robitussin. 5. Insulin. 6. Lactated Ringer's. 7. Synthroid. 8. Zofran. 9. Protonix. 10. Inderal. PHYSICAL EXAMINATION: VITAL SIGNS: Temperature normal, BP 109/70, heart rate 93, respiratory rate 20, O2 saturation 94% room air. SKIN: Shows the laparoscopy ports for the abdominal surgery, peripheral IV access. No Quigley catheter. No lymphadenopathy. HEENT: Ocular movements conjugate. Oral cavity normal. NECK: Supple. LUNGS: With a few scattered inspiratory crackles. HEART: S1, S2, regular rate. ABDOMEN: Soft with mild tenderness. No distention. No ascites. No bladder distention. EXTREMITIES: No joint inflammatory activity. No edema. NEUROLOGIC: Nonfocal. Cognitive function normal. LABORATORY DATA: White cell count was 14 and now 7.5, hemoglobin 14.9, platelets 169. Creatinine 1.0, glucose 86, calcium 7.6, AST 91. Urinalysis was normal. ASSESSMENT: Obesity, hypothyroidism, and SARS-CoV2 infection with moderate presentation. The duration of illness is about 4 days now. He is still on room air, but he may deteriorate going forward. In that case, he would be eligible for remdesivir and Decadron to be started. We will continue monitoring him closely in that regard. For the time being, continue with just symptomatic medication and his usual medications. He is going to the end of the first week of illness. So there is still high risk of further deterioration. We will continue monitoring markers daily. Although there was no evidence of surgical anasmotic leak on CT, sometimes early on it might no be apparent on imaging studies, so CT might have to be repeated depending on clinical course. Job ID: [id number] MTDD
[2020-11-06] MEDS: Propranolol 40 MG TAB PO SCH ×2 (15:39→20:30)
--- NOTE | 2020-11-06 20:07 | PRG ---
DATE OF SERVICE: 11/06/2020 SUBJECTIVE: The patient was seen this morning during rounds. He was sitting up in bed with no signs of acute distress. The patient reports that when he coughs, he has more significant abdominal pain, tolerating water. Has not had any clear liquids yet. He has not been out of bed yet. The patient was educated on importance of incentive spirometry, getting up out of bed, sitting in a chair and ambulating in his room as much as possible. The patient was also taught to brace himself with the pillow while coughing. OBJECTIVE: VITAL SIGNS: Temperature 97.9, pulse 93, respirations 20, oxygen saturation 93% on room air, and blood pressure 109/70. GENERAL: Well-appearing middle-aged male, sitting up in bed with no signs of acute distress. PULMONARY: Equal chest rise and fall. Clear breath sounds in bilateral upper lung hong and diminished in the bilateral lung hong. No signs of acute respiratory distress. CARDIAC: Regular rate and rhythm. GI: Abdomen is soft, appropriately tender to palpation and nondistended. Abdominal wounds are clean, dry, and intact. EXTREMITIES: 2+ pulses in all extremities. Gross motor and sensation are intact. No significant swelling noted. NEUROLOGIC: GCS is 15. LABORATORY FINDINGS: White count 7.0, hemoglobin 14.9, hematocrit 43.0, platelets 169. Sodium 135, potassium 3.5, chloride 102, bicarb 18, BUN 6, creatinine 1, glucose 86. CRP 15.27. DIAGNOSTIC FINDINGS: There are no new diagnostic findings to report. ASSESSMENT: 1. Postop day 3 status post lap Frankie-en-Y gastric bypass by Dr. Fox. 2. Acute postoperative pain, now better controlled. 3. Developing COVID pneumonia, currently stable. 4. History of diabetes, hypertension, post-traumatic stress disorder, and gastroesophageal reflux disease. PLAN: Continue current bariatric clear liquid diet. Continue IV fluids. The patient to get up out of bed and start moving around. We will consult Physical Therapy to start moving the patient. Incentive spirometry q.[address] Yeung is evaluating the patient for possible COVID pneumonia treatments. We will follow his recommendations, continue IV fluids. This patient was discussed with Dr. Montaño before this dictation. Job ID: [id number]
[2020-11-06] MEDS: clonazePAM 1 MG TAB PO SCH (20:29)
[2020-11-06] MEDS: Nortriptyline HCl 25 MG CAP PO SCH (20:29)
[2020-11-06] MEDS: Benzonatate 100 MG CAP PO PRN (20:30)
[2020-11-06] MEDS: Ondansetron PF 4 MG/2 ML Vial IVP PRN (20:39)
[2020-11-07] MEDS: Diabetic Tussin 200 MG/10 ML UDCUP PO PRN ×2 (03:10→20:07)
[2020-11-07] MEDS: Levothyroxine 150 MCG TAB PO SCH (04:56)
[2020-11-07 06:11] LABS: #Eosinphils 0.1 thou/uL (0.0-0.7); #Lymphocytes 1.5 thou/uL (1.20-3.40); #Monocytes 0.7 thou/uL (0.11-0.59); #Neutrophils 3.7 thou/uL (1.40-6.50); %Basophils 0.3 % (0.0-1.0); %Eosinophils 1.9 % (0.0-10.0); %Lymphocytes 24.2 % (21.0-51.0); %Monocytes 11.1 % (0.0-10.0); %Neutrophils 62.4 % (42.0-75.0); Hemoglobin 14.2 g/dL (14.0-18.0); Mean Corpuscular HGB CONC 34.1 g/dL (32.0-36.0); Mean Corpuscular Hemoglobin 31.4 pg (27.0-31.0); Mean Corpuscular Volume 92.3 fL (78.0-98.0); Mean Platelet Volume 8.6 fL (7.4-10.4); Platelet Count 165 thou/uL (130-400); RBC Distribution Width 12.3 % (11.5-14.5); Red Blood Cell (RBC) Count 4.53 mill/uL (4.70-6.10)
[2020-11-07 06:31] LABS: Anion Gap 15 mmol/L (10-20); BUN (Urea Nitrogen) 7 mg/dL (8.9-20.6); Calc. Creatinine Clearance 201 mL/min (70-130); Calcium 7.8 mg/dL (7.8-10.44); Carbon Dioxide 21 mmol/L (22-29); Chloride 103 mmol/L (98-107); Glucose 78 mg/dL (70-105); Magnesium 1.9 mg/dL (1.6-2.6); Phosphorus 2.9 mg/dL (2.3-4.7); Potassium 3.2 mmol/L (3.5-5.1); Sodium 136 mmol/L (136-145)
[2020-11-07] MEDS: Pantoprazole 40 MG VIAL IVP SCH (07:52)
[2020-11-07] MEDS: Propranolol 40 MG TAB PO SCH ×3 (07:52→20:07)
[2020-11-07] MEDS: Lactated Ringer's 1,000 ML IV SCH ×2 (07:53→14:17)
[2020-11-07] MEDS: Enoxaparin Sodium 40 MG/0.4 ML SYRINGE SC SCH ×2 (07:53→20:07)
--- NOTE | 2020-11-07 14:56 | PRG ---
DATE OF SERVICE: 11/07/2020 SUBJECTIVE: Patient was seen this morning during rounds. He was sitting up in bed. He reports his pain is better controlled than yesterday. Continues to do his incentive spirometer. He has been walking in his room with physical therapy. He is using a pillow to cough. OBJECTIVE: VITAL SIGNS: Temperature 98.3, pulse 86, respirations 20, oxygen saturation 94% on room air, blood pressure 119/80. GENERAL: Well-appearing middle-aged male, sitting up in bed with no signs of acute distress. PULMONARY: Equal chest rise and fall. Clear breath sounds bilaterally and slightly diminished in the bases. No signs of acute respiratory distress. CARDIAC: Regular rate and rhythm. GI: Abdomen is soft, nontender, nondistended. Wounds are clean, dry, and intact. EXTREMITIES: 2+ pulses in all extremities. Gross motor sensation is intact. No significant swelling noted. NEUROLOGIC: GCS is 15. LABORATORY DATA: White count 6.0, hemoglobin 14.2, hematocrit 41.8, platelets 165. Sodium 136, potassium 3.2, chloride 103, bicarb 21, BUN 7, creatinine 0.83, glucose 78, phosphorus 2.9, magnesium 1.9. DIAGNOSTIC FINDINGS: There are no new diagnostic findings to discuss. ASSESSMENT: 1. Postop day 4 status post laparoscopic Frankie-en-Y gastric bypass by Dr. Fox. 2. Postoperative abdominal pain. 3. COVID pneumonia, stable. 4. History of diabetes, hypertension, PTSD, and gastroesophageal reflux disease. PLAN: Continue current bariatric diet. Continue physical and occupational therapy. We will discontinue the patient's previous [place] prescription and change him to Tylenol 3. We will also add Ensure to his MAR. This patient was seen and evaluated by Dr. Montaño and myself this morning during rounds. Job ID: [id number]
[2020-11-07] MEDS: Acetaminophen/Codeine Oral Solution 120 mg/12 mg per 5 ml PO SCH ×2 (15:37→17:03)
--- NOTE | 2020-11-07 15:41 | PRG ---
DATE OF SERVICE: 11/07/2020 SUBJECTIVE: Feeling better, still with some moderate pain in the abdominal area, in the epigastric area and then going towards the left lower quadrant. Coughing a little bit, but not much. Able to eat and drink. OBJECTIVE: VITAL SIGNS: His temperature has been normal since admission. Saturating at 96% on room air right now. BP 119/80. GENERAL: Appears in no distress. LUNGS: Fairly clear. HEART: S1, S2. Regular rate. ABDOMEN: Mildly tender, not distended. LABORATORY DATA: White cell count 6.0, hemoglobin 14, platelets 165. CRP 15.27 from yesterday. Currently he is just on his home medications plus enoxaparin. ASSESSMENT AND DISCUSSION: Obesity, hypothyroidism, recent gastric bypass, SARS-CoV2 infection, so this is the fifth day of illness or fifth or sixth, clearly benign course thus far and still on room air, therefore, he does not merit any intervention specifically for SARS-CoV2 infection right now. Job ID: [id number]
[2020-11-07] MEDS: Ondansetron PF 4 MG/2 ML Vial IVP PRN (20:07)
[2020-11-07] MEDS: clonazePAM 1 MG TAB PO SCH (20:07)
[2020-11-07] MEDS: Nortriptyline HCl 25 MG CAP PO SCH (20:07)
[2020-11-07] MEDS: Acetaminophen W/ Codeine 5 ML UDCUP PO SCH (23:40)
[2020-11-08] MEDS: Acetaminophen W/ Codeine 5 ML UDCUP PO SCH ×2 (06:02→12:27)
[2020-11-08] MEDS: Levothyroxine 150 MCG TAB PO SCH (06:02)
[2020-11-08] MEDS: Diabetic Tussin 200 MG/10 ML UDCUP PO PRN (06:02)
[2020-11-08 06:55] LABS: Anion Gap 17 mmol/L (10-20); BUN (Urea Nitrogen) 6 mg/dL (8.9-20.6); Calc. Creatinine Clearance 211 mL/min (70-130); Calcium 7.7 mg/dL (7.8-10.44); Carbon Dioxide 20 mmol/L (22-29); Chloride 103 mmol/L (98-107); Glucose 79 mg/dL (70-105); Magnesium 1.7 mg/dL (1.6-2.6); Phosphorus 3.9 mg/dL (2.3-4.7); Potassium 3.4 mmol/L (3.5-5.1); Sodium 137 mmol/L (136-145)
[2020-11-08] MEDS: Pantoprazole 40 MG VIAL IVP SCH (08:11)
[2020-11-08] MEDS: Propranolol 40 MG TAB PO SCH (08:11)
[2020-11-08] MEDS: Enoxaparin Sodium 40 MG/0.4 ML SYRINGE SC SCH (08:11)
[2020-11-08] MEDS: Lactated Ringer's 1,000 ML IV SCH (08:11)
--- NOTE | 2020-11-08 11:08 | DIS ---
DATE OF ADMISSION: 11/05/2020 DATE OF DISCHARGE: 11/08/2020 DISCHARGE DIAGNOSES: Morbid obesity, laparoscopic Frankie-en-Y gastric bypass on 11/03/2020, discharged on 11/04/2020, readmitted on 11/05/2020 for COVID illness. HISTORY: A 39-year-old male patient with a past history of hypertension, arthralgias, morbid obesity refractory to nonsurgical treatment and because of severe GERD, underwent laparoscopic Frankie-en-Y gastric bypass on 11/03/2020, was sent home on , tolerating liquids, but readmitted on Sunday, dehydrated, tachycardic. He had a CAT scan of the abdomen and pelvis with p.o. and IV contrast, revealing absence of any findings that would suggest a leak. He was COVID positive. He was admitted for hydration. He was observed over the weekend, tolerated his liquids. Vital signs remained stable and his saturations remained good. Dr. Yeung saw him and did not think he was a candidate for antiviral therapy. Chest x-ray on admission was normal. The patient is using the incentive spirometer. He will continue on bariatric liquids for 2 weeks postoperatively and advance per protocol to pureed and soft diet. He is to follow up in my office in the next 2 weeks. He is encouraged to use incentive spirometer, be up in a chair frequently and ambulate. He will take his supplement vitamins and protein supplements. Diet and activity as tolerated without lifting restrictions. Job ID: [id number]
[2020-11-08 11:52] VITALS: BP 115/76; TEMP 98.3
--- NOTE | 2020-11-10 06:24 | PQF ---
CLINICAL DOCUMENTATION CLARIFICATION FORM: Dear : Uriel Fox Date / Time: 11/10/20623 Please exercise your independent, professional judgment in responding to the clarification form. Clinical indicators are provided on the bottom of this form for your review Please check appropriate box(es): [ ] Sepsis due to Covid Pneumonia [ ] Localized infection without sepsis [ ] Other diagnosis [ ] Unable to determine Physician Signature: Date/Time: For continuity of documentation, please document condition throughout progress notes and discharge summary. Thank You. To be completed by CDI/Coding staff for physician review: Present Clinical Indicators - Signs / Symptoms / Labs Results and Location in Medical Record [X] WBC 14.1, Plt count 223, Neutrophils 73.4, Lactic acid 1.2 Laboratory 11/05 [X] Blood culture: No growth at 48 hrs Microbiology 11/05 [X] [id number] RNA- Detected Serology 11/05 [X] Chest X-ray Left basilar atelectasis versus infiltrates Imaging 11/05 DR Shaw [X] BP 143/85, Pulse 133, Resp 31, Temp 99.6 Vital signs 11/05 [X] SIRS scoring: Yes, pt did meet the criteria ED notes p2 11/05 [X] Sepsis ED notes p9 11/01 [X] The pt does report some dyspnea and reports that his life has recently become Covid positive H&P p1 11/05 Dr Fox [X] Covid Pneumonia PN p1 11/06 Maria Del Rosario ARGUELLO Present Risk Factors Results and Location in Medical Record [X] DM H&P p1 11/05 Dr Fox [X] Obesity H&P p1 11/05 Dr Fox [X] Covid Pneumonia PN p1 11/06 Maria Del Rosario ARGUELLO Present Treatments Results and Location in Medical Record [X] IVF Lactated Ringers 1L JAN 28 [X] IV Zosyn 4.5 gm JAN 28 [X] IVF NS 1L JAN 28 [X] Isolation Order 11/05 [X] Sepsis protocol ED notes p2 11/05 [X] ID consult Consult Dr Yeung 11/05 CDS/Global Marketing Specialist Signature: Sherry Mitchelljavier Phone #: ext [phone] Date/Time: 11/10/202024 This is a permanent part of the Medical Record [facility]
== END 2020-11-08 12:58 | disposition home or self-care (01) | DRG 177 ==
LOC: ERS 10:17 → T4-A 11:02
PROVIDERS: ADMIT Specialist; ATTEND Specialist
PROC: 8E0ZXY6 Isolation (ICD-10-PCS; principal; 2020-11-05)
DX: U07.1 COVID-19 (principal); J12.89 Other viral pneumonia; F43.10 Post-traumatic stress disorder, unspecified; F32.9 Major depressive disorder, single episode, unspecified; E11.9 Type 2 diabetes mellitus without complications; I10 Essential (primary) hypertension; K21.9 Gastro-esophageal reflux disease without esophagitis; E86.0 Dehydration; E03.9 Hypothyroidism, unspecified; E66.01 Morbid (severe) obesity due to excess calories; Z68.38 Body mass index [BMI] 38.0-38.9, adult; Z79.899 Other long term (current) drug therapy; Z79.4 Long term (current) use of insulin; Z79.890 Hormone replacement therapy; Z88.5 Allergy status to narcotic agent; Z91.09 Other allergy status, other than to drugs and biological substances; Z98.84 Bariatric surgery status
CPT/HCPCS: 0240U; 36415; 71045; 74177; 80048; 80053; 81003; 82728; 83605; 83735; 84100; 85025; 85379; 86140; 87040; 87086; 93005; 94760; 96365; 96375; C9113; J1650; J1885; J2270; J2405; J2543; Q9967

== ENCOUNTER 2020-11-09 07:23 | Inpatient (IN) | payer BC ==
[2020-11-09 08:00] LABS: #Eosinphils 0.2 thou/uL (0.0-0.7); #Lymphocytes 2.7 thou/uL (1.20-3.40); #Monocytes 0.6 thou/uL (0.11-0.59); #Neutrophils 8.2 thou/uL (1.40-6.50); %Basophils 0.3 % (0.0-1.0); %Lymphocytes 22.6 % (21.0-51.0); %Monocytes 5.1 % (0.0-10.0); Hemoglobin 15.9 g/dL (14.0-18.0); Mean Corpuscular HGB CONC 34.3 g/dL (32.0-36.0); Mean Corpuscular Hemoglobin 31.6 pg (27.0-31.0); Mean Platelet Volume 8.5 fL (7.4-10.4); Platelet Count 301 thou/uL (130-400); RBC Distribution Width 12.4 % (11.5-14.5); Red Blood Cell (RBC) Count 5.05 mill/uL (4.70-6.10); White Blood Cell (WBC) Count 11.7 thou/uL (4.8-10.8)
[2020-11-09] MEDS ORDERED: Cefepime 2 GM VIAL ONE (08:16)
[2020-11-09 08:24] LABS: ALT (SGPT) 67 U/L (8-55); AST (SGOT) 45 U/L (5-34); Albumin 3.5 g/dL (3.5-5.0); Alkaline Phosphatase 63 U/L (40-110); Anion Gap 18 mmol/L (10-20); BUN (Urea Nitrogen) 9 mg/dL (8.9-20.6); Bilirubin, Total 0.9 mg/dL (0.2-1.2); Calc. Creatinine Clearance 0 mL/min (70-130); Calcium 8.5 mg/dL (7.8-10.44); Carbon Dioxide 24 mmol/L (22-29); Chloride 100 mmol/L (98-107); Globulin 3.1 g/dL (2.4-3.5); Glucose 154 mg/dL (70-105); Lipase 28 U/L (8-78); Potassium 3.6 mmol/L (3.5-5.1); Protein, Total 6.6 g/dL (6.0-8.3); Sodium 138 mmol/L (136-145)
[2020-11-09] MEDS ORDERED: Sodium Chloride 0.9% 1,000 ML IV SCH (08:45)
[2020-11-09] MEDS ORDERED: Norepinephrine 4 MG/4 ML VIAL ONE (08:57)
--- NOTE | 2020-11-09 09:00 | CT ---
CT ANGIOGRAM THORAX WITH CONTRAST: (CTA pulmonary angiogram) DATE: 11/09/2020 HISTORY: 39-year-old male with abnormal chest radiograph and abdominal pain TECHNIQUE: IV injection of iodinated contrast. Scan acquisition timing attempted to coincide with iodinated contrast bolus reaching maximal density in pulmonary arteries. 3-D MIP reconstructions. FINDINGS: Very small left pleural effusion and adjacent small region of passive atelectasis in the posterior ba se of left lower lobe. Minimal dependent atelectasis at right posterior base adjacent to tiny right pleural effusion. Partial visualization of suture line along stomach. Oral contrast material in the stomach lumen and e sophagus. Scattered multifocal small hematomas in the left upper quadrant of the abdominal cavity. No thoracic aortic aneurysm or dissection. Very good opacification of pulmonary arteries, including branches. No pulmonary thromboembolism. Multifocal small patchy faint infiltrates in the right upper lobe, involving apical, anterior, and po sterior segments, especially apical segment. A single small such infiltrate in the contralateral left upper lobe anterior segment. Minimal such small infiltrates may also be present in the bilateral lower lobes, partially obscured b y the atelectasis on the left. No pneumothorax. Trachea and major bronchi are patent and clear. No mediastinal or hilar lymphadenopathy. Tiny pericardial effusion. IMPRESSION: 1) status post recent bariatric surgery with numerous very small postoperative hematomas in left uppe r quadrant. See separate report of abdominal CT. 2) no pulmonary thromboembolism. 3) multifocal small focal infiltrates, mostly in the right upper lobe. Suggestive of multifocal pneum onia, either with atypical organism or perhaps COVID-19, although the infiltrates do not appear classic for COVID-19.
--- NOTE | 2020-11-09 09:04 | RAD ---
PORTABLE CHEST: Date: 11/09/2020 COMPARISON: 11/05/2020 exam. HISTORY: Dyspnea. FINDINGS: Heart size within normal limits. There are parenchymal changes again noted in the left base, appear m ore atelectatic in appearance. Right lung appears clear. IMPRESSION: Left lower lobe atelectasis. Stable exam. POS: OFF
[2020-11-09] MEDS ORDERED: Norepinephrine 8 MG in Dextrose 5% in Water 242 ML IVPB SCH (09:15)
--- NOTE | 2020-11-09 10:07 | CT ---
CT OF THE ABDOMEN AND PELVIS WITH IV CONTRAST: INDICATION: History of gastric bypass on November 03, 2020, with abdominal pain. COMPARISON: Prior CT of the abdomen and pelvis dated 11/05/2020 and 12/01/2015. FINDINGS: There are small bilateral pleural effusions with subsegmental atelectasis. There has been interval development of mild to moderate hemoperitoneum. There is a 2.2 cm pseudoaneu rysm protruding off of the suspected proximal left gastroepiploic artery on image 16 of series 3 and image 114 of the coronal series with active extravasation. This is seen along the suture line near t he fundus of the gastric remnant. There is no evidence of extraluminal extravasation of enteric cont rast. There is accentuation of the epiploic arteries along the gastric remnant which is nonspecific and may reflect some venous outflow obstruction from the gastric remnant itself. Small vascular shunt of segment of the right hepatic lobe is similar appearing measuring 8 mm. The g allbladder is surgically absent. The pancreas, adrenal glands, and spleen appear within normal limit s. The kidneys are normal appearing. The large bowel demonstrates scattered diverticula. No definite acute osseous abnormality is evident. IMPRESSION: 1. Interval development of a pseudoaneurysm off of the proximal left gastroepiploic artery with acti ve extravasation and mild to moderate hemoperitoneum. Findings were called to Dr. Fox at 8:48 a[address] . and at Dr. Cohen at 8:46 a.m. 2. There is accentuation of the gastroepiploic arteries which is nonspecific and may reflect a compo nent of venous outflow obstruction. 3. Stable vascular shunt within the right hepatic lobe. 4. Stable postsurgical change of a Frankie-en-Y gastric bypass without evidence of extraluminal extrava sation of enteric contrast. CODE CR
[2020-11-09] MEDS ORDERED: Fentanyl 100 MCG/2 ML VIAL ONE (12:08)
[2020-11-09] MEDS ORDERED: hydrALAZINE 20 MG/ML VIAL SLOW IVP PRN (12:33)
[2020-11-09] MEDS ORDERED: Morphine 2 MG/ML VIAL SLOW IVP PRN (12:33)
[2020-11-09] MEDS ORDERED: Ondansetron ODT 4 MG TAB PO PRN (12:33)
[2020-11-09] MEDS ORDERED: Morphine 4 MG/ML VIAL SLOW IVP PRN (12:33)
[2020-11-09] MEDS ORDERED: Hydrocodone-Acetamin 15 ML UDCUP PO PRN ×2 (12:35→12:37)
[2020-11-09] MEDS ORDERED: Acetaminophen 325 MG/10.15 ML UDCUP PO PRN (12:37)
[2020-11-09] MEDS ORDERED: Acetaminophen 500 MG TAB PO PRN (12:37)
[2020-11-09] MEDS ORDERED: Acetaminophen 650 MG/20.3 ML UDCUP PO PRN (13:04)
--- NOTE | 2020-11-09 13:16 | HP ---
HISTORY OF PRESENT ILLNESS: Zachary Pimentel is a 39-year-old male patient who went through our bariatric program and underwent 11/03/2020 laparoscopic Frankie-en-Y gastric bypass. Had problems intraoperatively to place an NG tube into his pouch. An endoscope was placed into his pouch. Anastomosis, gastrojejunostomy checked under water and there was no leak. The patient had redundant fundus requiring manipulation to accomplish the procedure and as there were serosal tears, he had some of this resected. Postoperatively, he was discharged home the next day on 11/04/2020, . He was tolerating liquids without nausea or vomiting. He reported back to the emergency room, 11/05/2020, feeling malaise and fever and tachycardic. He underwent IV fluid hydration. His CBC was normal, white count normal, hemoglobin stable. CT scan of the abdomen and pelvis p.o. and IV contrast looked normal postoperative without complication. He tested COVID positive. His had been COVID positive. The patient was hospitalized 11/05 to 11/08 yesterday. Observe him for his COVID illness. His chest x-ray appeared to be normal on admission. His saturations remained good. He was tolerating liquids. He had been afebrile during the hospitalization. His hemoglobin was stable at 14. Patient is readmitted this morning because of complaints of abdominal pain. Dr. Cohen saw him from the emergency room. CAT scan of the chest, thorax with oral and IV contrast obtained, revealed absence of any evidence of a leak, although he did have some blood density fluid around the gastric remnant and small left pleural effusion. He had scattered multifocal small hematomas, left upper quadrant. He did have changes in the lung consistent with multifocal pneumonia, either a typical organism or COVID-19. CAT scan of the abdomen and pelvis with oral and IV contrast revealed interval development of pseudoaneurysm off the proximal left gastroepiploic artery with active extravasation, mild to moderate hemoperitoneum. The patient on admission was noted to have a pressure in the 80s, received 2.5 L of crystalloid. Blood pressure improved to the 90s systolic. His heart rate decreased from 120 to 100. He was mentating normal. He is afebrile. As noted, his white count is 11, hemoglobin 15. Differential unremarkable. Renal function was normal. BUN and creatinine 9 and [address] Jose Epperson who felt that he would be unlikely from an interventional standpoint to embolize this. I spoke with Dr. Luevano, Interventional Radiology at [facility], who felt that he would be able to perform this procedure and the patient is being transferred for interventional procedure at [facility]. CT scan and CD ROM were requested. Called the transfer center. Plan is to transfer him to [facility] for intervention and after intervention return him to our facility for [facility] observation. He has 2 units of blood typed and crossed. We will monitor his hemoglobin. ALLERGIES: MORPHINE. SOCIAL HISTORY: Tobacco, none. Alcohol, none. MEDICATIONS: 1. Clonazepam. 2. Cialis. 3. Inderal. 4. Potassium. 5. Levothyroxine. 6. P.r.n. hydrocodone. 7. Vitamin D. 8. Dexilant. 9. Tylenol Extra Strength. PAST SURGICAL HISTORY: Frankie-en-Y gastric bypass, laparoscopic last week; umbilical cyst removed; urethral cyst removed; cholecystectomy in the past. PAST MEDICAL HISTORY: PTSD, on disability for that, followed by Dr. Franklin, [facility]. Has history of hypertension, depression, GERD, on 2 PPIs preoperatively in ED. In high school, weight 231 pounds on all diet, lost down 155 pounds, but gained weight after that. Heaviest weight is 270. He presented to me at 265, 38 BMI. PHYSICAL EXAMINATION: VITAL SIGNS: Heart rate 105, 96/70, respiratory rate 18. GENERAL: He is alert and oriented, GCS 15. LUNGS: Clear to auscultation. CARDIAC: Regular rate and rhythm without murmur or gallop. ABDOMEN: Soft, mild tenderness in left upper quadrant without guarding. Surgical wounds. Laparoscopic port sites well healed. EXTREMITIES: Unremarkable, without edema. LABORATORY DATA: As noted. ASSESSMENT AND PLAN: 1. 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 We would plan Interventional Radiology embolization of this by radiologist at [facility] and transfer back to [facility] for observation. He continue his bariatric liquids. 2. Recovering from COVID illness with radiological CAT scan evidence of some pulmonic changes without plain Radiology evidence of pneumonia last week. 3. Posttraumatic stress disorder. 4. Hypertension. Job ID: [id number]
[2020-11-09] MEDS ORDERED: Iopamidol-370 76% 500 ML 1 ML ONE (13:23)
[2020-11-09] MEDS: Lactated Ringer's 1,000 ML IV SCH ×2 (17:49→22:08)
[2020-11-09] MEDS: Propranolol 40 MG TAB PO SCH ×2 (17:49→21:12)
[2020-11-09] MEDS: Ketorolac Tromethamine 30 MG/ML VIAL IVP SCH ×2 (17:50→18:15)
[2020-11-09 19:36] LABS: #Eosinphils 0.1 thou/uL (0.0-0.7); #Lymphocytes 1.7 thou/uL (1.20-3.40); #Monocytes 0.8 thou/uL (0.11-0.59); #Neutrophils 5.9 thou/uL (1.40-6.50); %Basophils 0.1 % (0.0-1.0); %Eosinophils 0.8 % (0.0-10.0); %Lymphocytes 19.9 % (21.0-51.0); %Monocytes 9.4 % (0.0-10.0); %Neutrophils 69.9 % (42.0-75.0); Hemoglobin 12.2 g/dL (14.0-18.0); Mean Corpuscular HGB CONC 34.8 g/dL (32.0-36.0); Mean Corpuscular Hemoglobin 31.9 pg (27.0-31.0); Mean Corpuscular Volume 91.7 fL (78.0-98.0); Mean Platelet Volume 8.4 fL (7.4-10.4); Platelet Count 225 thou/uL (130-400); RBC Distribution Width 12.3 % (11.5-14.5); Red Blood Cell (RBC) Count 3.82 mill/uL (4.70-6.10); White Blood Cell (WBC) Count 8.5 thou/uL (4.8-10.8)
[2020-11-09] MEDS ORDERED: NORTRIPTYLINE HCL 75 MG PO SCH (21:00)
[2020-11-09] MEDS ORDERED: clonazePAM 1 MG TAB PO SCH (21:00)
[2020-11-09] MEDS ORDERED: Non-Formulary Item 1 EACH (Dexlansoprazole [Dexilant] 60 MG Cap.Dr.Mp) PO SCH (21:00)
[2020-11-09] MEDS: Famotidine 20 MG TAB PO SCH (21:12)
[2020-11-09] MEDS: Nortriptyline HCl 25 MG CAP PO SCH (21:13)
[2020-11-09] MEDS: clonazePAM 0.5 MG TAB PO SCH (21:50)
[2020-11-09 22:00] VITALS: BMI 38.9
[2020-11-10] MEDS: Ondansetron PF 4 MG/2 ML Vial IVP PRN ×2 (00:39→20:58)
[2020-11-10] MEDS: Ketorolac Tromethamine 30 MG/ML VIAL IVP SCH ×3 (00:40→12:58)
[2020-11-10 03:59] LABS: #Eosinphils 0.1 thou/uL (0.0-0.7); #Lymphocytes 2.2 thou/uL (1.20-3.40); #Neutrophils 5.3 thou/uL (1.40-6.50); %Basophils 0.1 % (0.0-1.0); %Lymphocytes 25.8 % (21.0-51.0); %Monocytes 11.9 % (0.0-10.0); %Neutrophils 61.2 % (42.0-75.0); Hemoglobin 10.8 g/dL (14.0-18.0); Mean Corpuscular HGB CONC 34.8 g/dL (32.0-36.0); Mean Corpuscular Hemoglobin 31.4 pg (27.0-31.0); Mean Corpuscular Volume 90.2 fL (78.0-98.0); Mean Platelet Volume 8.6 fL (7.4-10.4); Platelet Count 219 thou/uL (130-400); RBC Distribution Width 12.2 % (11.5-14.5); Red Blood Cell (RBC) Count 3.43 mill/uL (4.70-6.10); White Blood Cell (WBC) Count 8.7 thou/uL (4.8-10.8)
[2020-11-10 04:21] LABS: Anion Gap 13 mmol/L (10-20); BUN (Urea Nitrogen) 12 mg/dL (8.9-20.6); Calc. Creatinine Clearance 228 mL/min (70-130); Calcium 7.4 mg/dL (7.8-10.44); Carbon Dioxide 21 mmol/L (22-29); Chloride 104 mmol/L (98-107); Glucose 110 mg/dL (70-105); Potassium 3.4 mmol/L (3.5-5.1); Sodium 135 mmol/L (136-145)
[2020-11-10] MEDS: Levothyroxine 150 MCG TAB PO SCH (05:40)
[2020-11-10] MEDS: Lactated Ringer's 1,000 ML IV SCH ×2 (05:40→17:45)
[2020-11-10] MEDS ORDERED: FLU VACC QS2020-21(6MOS UP)/PF 60 MCG/0.5 ML SYRINGE IM ONE (09:00)
[2020-11-10] MEDS ORDERED: Non-Formulary Item 1 EACH (Levothyroxine Sodium [Levothyroxine] 150 MCG Capsule) PO SCH (09:00)
[2020-11-10] MEDS: Propranolol 40 MG TAB PO SCH ×3 (09:22→20:52)
[2020-11-10] MEDS: Famotidine 20 MG TAB PO SCH ×2 (09:22→20:52)
--- NOTE | 2020-11-10 12:36 | PQF ---
CLINICAL DOCUMENTATION CLARIFICATION FORM: Dear Dr. Fox Date: 11/10/20 Please exercise your independent, professional judgment in responding to the clarification form. Clinical indicators are provided on the bottom of this form for your review. Please check appropriate box(s): [ ] Hypovolemic Shock [ ] Hemorrhagic Shock [ ] Hypotension w/o Shock [ ] Unable to determine In addition, please specify: Present on Admission (POA): [ ] Yes [ ] No [ ] Unable to determine For continuity of documentation, please document condition throughout progress notes and discharge summary. Thank You. To be completed by CDI/Coding staff for physician review: CLINICAL INDICATORS - SIGNS / SYMPTOMS / LABS / RESULTS AND LOCATION IN MR BP 89/64 Pulse 118 RR 24 RISK FACTORS / RESULTS AND LOCATION IN MR Recent Frankie-en-Y (NAVEED Fox 11/09) TREATMENTS / RESULTS AND LOCATION IN MR Levophed (ER) IV Fluids (ER) IV Cefepime (ER) CDS Signature: Tamiko Neal RN Phone #: [phone] Date: 11/10/20 This is a permanent part of the Medical Record [facility]
--- NOTE | 2020-11-10 12:47 | PQF ---
CLINICAL DOCUMENTATION CLARIFICATION FORM: Dear Dr. Fox Date: 11/10/20 Please exercise your independent, professional judgment in responding to the clarification form. Clinical indicators are provided on the bottom of this form for your review Please check appropriate box(es): [ ] Acute blood loss anemia [ ] Post-op anemia related to acute blood loss [ ] Anemia: [ ] Aplastic [ ] Nutritional [ ] Drug induced (specify) [ ] Hemolytic [ ] Hereditary [ ] Acquired [ ] Chronic Anemia: [ ] Blood loss [ ] Hemolytic [ ] Simple [ ] Due to Vitamin B12 Deficiency [ ] Other [ ] Other diagnosis [ ] Unable to determine In addition, please specify: Present on Admission (POA): [ ] Yes [ ] No [ ] Unable to determine For continuity of documentation, please document condition throughout progress notes and discharge summary. Thank You. To be completed by CDI/Coding staff for physician review: CLINICAL INDICATORS - SIGNS / SYMPTOMS / LABS / RESULTS AND LOCATION IN EMR Labs: WBC Hgb Hct 12.22 @ 0744 11.7 15.9 46.4 12.22 @ 1919 8.5 12.2 35.0 12.23 @ 0323 10.8 30.9 RISK FACTORS / RESULTS AND LOCATION IN EMR 11.09 H&P ([place]): 11.03.20 laparoscopic Frankie-en-Y gastric bypass Postoperative bleeding from a pseudoaneurysm left gastric distribution TREATMENTS / RESULTS AND LOCATION IN EMR Plan is to transfer to [facility] for intervention and after intervention return him to our facility for IMCU observation. (H&P- [place] 11/09) CDS Signature: Tamiko Neal RN Phone #: [phone] Date: 11/10/20 This is a permanent part of the Medical Record [facility]
--- NOTE | 2020-11-10 13:17 | PQF ---
CLINICAL DOCUMENTATION CLARIFICATION FORM: Dear Dr. Fox Date: 11/10/20 Please exercise your independent, professional judgment in responding to the clarification form. Clinical indicators are provided on the bottom of this form for your review. Please check appropriate box(es): [ ] Bleeding from pseudoaneurysm left gastric distribution is a complication of recent laparoscopic Frankie-en-Y gastric bypass [ ] Bleeding from pseudoaneurysm left gastric distribution is NOT a complication of recent laparoscopic Frankie-en-Y gastric bypass [ ] Other diagnosis [ ] Unable to determine In addition, please specify: Present on Admission (POA): [ ] Yes [ ] No [ ] Unable to determine For continuity of documentation, please document condition throughout progress notes and discharge summary. Thank You. To be completed by CDI/Coding staff for physician review: CLINICAL INDICATORS - SIGNS / SYMPTOMS / LABS / RESULTS AND LOCATION IN ED: gastric artery pseudoaneurysm RISK FACTORS / RESULTS AND LOCATION IN H&P ([place] 11/09) Postoperative bleeding from a pseudoaneurysm left gastric distribution TREATMENT / RESULTS AND LOCATION IN MR 12. H&P ([place]): 11.03.20 laparoscopic Frankie-en-Y gastric bypass plan is to transfer to [facility] for intervention and after intervention return him to our facility for IMCU observation Levophed IV . ordered in ED - held 1LNS (ED) Vanc IV; Cefepime IV (ED) CDS Signature: Tamiko Neal RN Phone #: [phone] Date: 11/10/20 JOSE
--- NOTE | 2020-11-10 13:35 | PQF ---
CLINICAL DOCUMENTATION CLARIFICATION FORM: Dear Dr. Fox Date: 11/10/20 Please exercise your independent, professional judgment in responding to the clarification form. Clinical indicators are provided on the bottom of this form for your review. Please check appropriate box(es): [ ] SIRS d/t bleeding r/t pseudoaneurysm left gastric distribution [ ] Sepsis d/t (please provide infectious source) [ ] Bleeding from pseudoaneurysm left gastric distribution only [ ] Other diagnosis [ ] Unable to determine In addition, please specify: Present on Admission (POA): [ ] Yes [ ] No [ ] Unable to determine For continuity of documentation, please document condition throughout progress notes and discharge summary. Thank You. To be completed by CDI/Coding staff for physician review: CLINICAL INDICATORS - SIGNS / SYMPTOMS / LABS / RESULTS AND LOCATION IN MR ED: "SEPSIS ALERT" SBP 79-92 DBP 44-65 P 100-118 RR 14-25 T 97.5 ORAL RISK FACTORS / RESULTS AND LOCATION IN MR "Gastric artery pseudoaneurysm" (ER note) TREATMENTS / RESULTS AND LOCATION IN MR Levophed IV 11.09 ordered in ED - held 1LNS Vanc IV; Cefepime IV Plan is to transfer to [facility] for intervention and after intervention return him to our facility for IMCU observation. (H&P 11/09- [place]) CDS Signature: Tamiko Neal RN Phone #: [phone] Date: 11/10/20 JOSE
[2020-11-10] MEDS ORDERED: Ketorolac Tromethamine 30 MG/ML VIAL IVP PRN (15:34)
--- NOTE | 2020-11-10 15:45 | PRG ---
DATE OF SERVICE: 11/10/2020 SUBJECTIVE: Mr. Pimentel is doing well today. He is in IMCU. He feels somewhat better. He complains of intermittent upper abdominal pain, where as yesterday it was constant. OBJECTIVE: VITAL SIGNS: Heart rate 87, blood pressure 121/79, and respiratory rate 19. LUNGS: Clear to auscultation. CARDIAC: Regular rate and rhythm without murmur or gallop. ABDOMEN: Soft. No guarding. Laparoscopic wound is well healed. EXTREMITIES: Unremarkable. LABORATORY DATA: This morning, his hemoglobin is 10.8, white count 8.7. Basic metabolic profile is normal. ASSESSMENT AND PLAN: 1. Frankie-en-Y gastric bypass 1 week ago, laparoscopic. Continue bariatric liquids for 2 weeks, advance to puree after 2 weeks. 2. COVID illness. His saturations are good. He is tolerating his diet. Continue monitoring. Continue isolation. 3. Status post embolization of arteriovenous malformation, postoperative, left upper quadrant with hemoperitoneum. The patient is doing well. His hemoglobin is relatively stable. He is tolerating his diet. He has not had any nausea. We would increase his mobility, saline lock him. Hopefully, he can be discharged home tomorrow pending his clinical course. Job ID: [id number]
[2020-11-10 16:43] LABS: #Eosinphils 0.2 thou/uL (0.0-0.7); #Lymphocytes 2.1 thou/uL (1.20-3.40); #Monocytes 0.8 thou/uL (0.11-0.59); #Neutrophils 4.6 thou/uL (1.40-6.50); %Basophils 0.1 % (0.0-1.0); %Eosinophils 2.1 % (0.0-10.0); %Monocytes 10.5 % (0.0-10.0); %Neutrophils 60.2 % (42.0-75.0); Hemoglobin 10.3 g/dL (14.0-18.0); Mean Corpuscular HGB CONC 34.1 g/dL (32.0-36.0); Mean Corpuscular Hemoglobin 30.9 pg (27.0-31.0); Mean Corpuscular Volume 90.6 fL (78.0-98.0); Mean Platelet Volume 8.1 fL (7.4-10.4); Platelet Count 228 thou/uL (130-400); RBC Distribution Width 12.2 % (11.5-14.5); Red Blood Cell (RBC) Count 3.35 mill/uL (4.70-6.10); White Blood Cell (WBC) Count 7.7 thou/uL (4.8-10.8)
[2020-11-10] MEDS: clonazePAM 0.5 MG TAB PO SCH (20:51)
[2020-11-10] MEDS: Nortriptyline HCl 25 MG CAP PO SCH (20:52)
[2020-11-10 21:02] VITALS: TEMP 100.4
[2020-11-11 03:44] LABS: #Basophils 0.1 thou/uL (0.0-0.2); #Eosinphils 0.2 thou/uL (0.0-0.7); #Lymphocytes 2.1 thou/uL (1.20-3.40); #Monocytes 0.9 thou/uL (0.11-0.59); #Neutrophils 4.6 thou/uL (1.40-6.50); %Basophils 1.4 % (0.0-1.0); %Eosinophils 2.2 % (0.0-10.0); %Lymphocytes 26.7 % (21.0-51.0); %Monocytes 11.7 % (0.0-10.0); %Neutrophils 58.1 % (42.0-75.0); Hemoglobin 10.1 g/dL (14.0-18.0); Mean Corpuscular HGB CONC 35.1 g/dL (32.0-36.0); Mean Corpuscular Hemoglobin 31.6 pg (27.0-31.0); Mean Corpuscular Volume 89.9 fL (78.0-98.0); Mean Platelet Volume 8.3 fL (7.4-10.4); Platelet Count 222 thou/uL (130-400); RBC Distribution Width 12.2 % (11.5-14.5)
[2020-11-11 04:05] LABS: Anion Gap 14 mmol/L (10-20); BUN (Urea Nitrogen) 7 mg/dL (8.9-20.6); Calc. Creatinine Clearance 216 mL/min (70-130); Calcium 7.4 mg/dL (7.8-10.44); Carbon Dioxide 23 mmol/L (22-29); Chloride 104 mmol/L (98-107); Glucose 93 mg/dL (70-105); Potassium 3.2 mmol/L (3.5-5.1); Sodium 138 mmol/L (136-145)
[2020-11-11] MEDS: Levothyroxine 150 MCG TAB PO SCH (05:47)
[2020-11-11] MEDS: Propranolol 40 MG TAB PO SCH (09:39)
[2020-11-11] MEDS: Famotidine 20 MG TAB PO SCH (09:39)
--- NOTE | 2020-11-11 10:43 | DIS ---
DATE OF ADMISSION: 11/09/2020 DATE OF DISCHARGE: 11/11/2020 DISCHARGE DIAGNOSES: 1. Anemia, secondary pseudoaneurysm, AVM postoperative bleeding, gastric remnant area, status post gastric bypass. No blood transfused. Interventional Radiology, [facility]. Embolization, resolving. 2. Anemia, discharge hemoglobin 10.6, stable. 3. COVID positive, recovering, diagnosed last week, post gastric bypass. 4. Morbid obesity, status post laparoscopic Frankie-en-Y gastric bypass last week. 5. PTSD. PROCEDURES IN THIS HOSPITALIZATION: CTA, CT angio, abdomen and pelvis, referral to [facility], interventional radiology embolization, AVM pseudoaneurysm, observation, IMCU. DISCHARGE MEDICATIONS: Bariatric liquid diet for 2 weeks postoperatively, progressing to pureed in 2-4 weeks. Resume home protein supplements and vitamins. Lortab Elixir as needed for pain. Tylenol as needed for pain. Crush medications. DISCHARGE INSTRUCTIONS: Follow up with Dr. Fox in 2-3 weeks. No lifting restrictions. HISTORY: A 39-year-old male with the above diagnosis, status post laparoscopic Frankie-en-Y gastric bypass last week, and he was discharged home on . He returned to the hospital on Sunday with malaise, fever. Diagnosed COVID positive, observed over the weekend. Discharged home on Sunday. He returned to the hospital on Sunday with increasing left upper quadrant abdominal pain. Radiological imaging revealing AVM pseudoaneurysm, gastric remnant area. Discussed with physicians at our facility who could not perform interventional procedures for this problem, transferred to [facility], where he had this done, referred back . Hemoglobin stabilized at 10.6, and his pain resolved, and he is discharged home. Follow up in my office in 2-3 weeks. Diet advancement, bariatric liquids two weeks post gastric bypass. Advance to pureed after two weeks. PLAN: As above. Resume home medications, otherwise, crush medications. Job ID: [id number]
== END 2020-11-11 11:00 | disposition home or self-care (01) | DRG 919 ==
LOC: ERS 07:23 → ERHOLD 09:55 → IMCU/EMU 18:25
PROVIDERS: ADMIT Specialist; ATTEND Specialist
DX: K91.840 Postprocedural hemorrhage of a digestive system organ or structure following a digestive system procedure (principal); U07.1 COVID-19; K55.21 Angiodysplasia of colon with hemorrhage; F32.9 Major depressive disorder, single episode, unspecified; K21.9 Gastro-esophageal reflux disease without esophagitis; I10 Essential (primary) hypertension; D64.9 Anemia, unspecified; F43.10 Post-traumatic stress disorder, unspecified; E66.01 Morbid (severe) obesity due to excess calories; Y83.8 Other surgical procedures as the cause of abnormal reaction of the patient, or of later complication, without mention of misadventure at the time of the procedure; Z88.6 Allergy status to analgesic agent; Z98.84 Bariatric surgery status; Z90.49 Acquired absence of other specified parts of digestive tract; Z68.38 Body mass index [BMI] 38.0-38.9, adult
CPT/HCPCS: 36415; 71045; 71275; 74177; 80048; 80053; 83605; 83690; 84484; 85025; 86850; 86900; 86901; 87040; 93005; 96365; 96366; 96367; 96375; J0692; J1885; J2270; J2405; J3010; J3370; J7030; Q9967

== ENCOUNTER 2020-11-17 21:43 | Inpatient (IN) | payer BC ==
[~2020-11-17 21:43] MED LIST: Iopamidol-370 76% 500 ML 1 ML ONE
[2020-11-17 23:02] LABS: Hemoglobin 15.2 g/dL (14.0-18.0); Mean Corpuscular HGB CONC 32.5 g/dL (32.0-36.0); Mean Corpuscular Hemoglobin 29.6 pg (27.0-31.0); Mean Platelet Volume 8.1 fL (7.4-10.4); Platelet Count 716 thou/uL (130-400); RBC Distribution Width 13.3 % (11.5-14.5); Red Blood Cell (RBC) Count 5.15 mill/uL (4.70-6.10); White Blood Cell (WBC) Count 22.1 thou/uL (4.8-10.8)
[2020-11-17 23:19] LABS: Band 1 % (5-11); Lymphocytes 7 % (21-51); MDiff Complete? YES; Monocytes 16 % (0-10); Neutrophil 76 % (42-75); Platelet Morphology Comment Appears Increased; RBC Morphology Normal; Toxic Granulation SLIGHT
[2020-11-17 23:24] LABS: ALT (SGPT) 69 U/L (8-55); AST (SGOT) 48 U/L (5-34); Albumin 3.7 g/dL (3.5-5.0); Alkaline Phosphatase 91 U/L (40-110); Anion Gap 20 mmol/L (10-20); BUN (Urea Nitrogen) 17 mg/dL (8.9-20.6); Bilirubin, Total 2.4 mg/dL (0.2-1.2); Calc. Creatinine Clearance 0 mL/min (70-130); Calcium 9.1 mg/dL (7.8-10.44); Carbon Dioxide 20 mmol/L (22-29); Chloride 101 mmol/L (98-107); Globulin 4.2 g/dL (2.4-3.5); Glucose 145 mg/dL (70-105); Lipase 63 U/L (8-78); Potassium 3.5 mmol/L (3.5-5.1); Protein, Total 7.9 g/dL (6.0-8.3); Sodium 137 mmol/L (136-145)
[2020-11-17] MEDS ORDERED: Morphine 4 MG/ML VIAL ONE (23:35)
[2020-11-17] MEDS ORDERED: Ondansetron PF 4 MG/2 ML Vial ONE (23:35)
[2020-11-17] MEDS ORDERED: Promethazine HCl 25 MG/ML VIAL ONE (23:38)
[2020-11-17 23:45] LABS: Bacteria/HPF None Seen HPF (None Seen); Bilirubin 1+ (Negative); Blood, Urine Negative (Negative); Clarity Clear (Clear); Glucose, Urine (Dipstick) 30 mg/dL (Negative); Ketone, Urine 60 mg/dL (Negative); Leukocyte Negative Leu/uL (Negative); Mucous/LPF 2+ LPF (<2+); Nitrite Negative (Negative); Protein, Urine (Dipstick) 100 mg/dL (Neg-Trace); RBC/HPF 0-3 HPF (0-3); Specific Gravity, Urine 1.033 (1.002-1.036); Squamous Epithelial None Seen HPF (0-3); Urobilinogen Greater than 12 mg/dL (Less than 2)
[2020-11-18] MEDS ORDERED: Piperacillin/Tazobactam 4.5 GM VIAL ONE (02:22)
[2020-11-18] MEDS ORDERED: Acetaminophen 500 MG TAB ONE (02:45)
[2020-11-18] MEDS ORDERED: Morphine 4 MG/ML VIAL ONE ×2 (04:15→08:18)
[2020-11-18] MEDS ORDERED: Promethazine HCl 25 MG/ML VIAL ONE (08:18)
--- NOTE | 2020-11-18 09:01 | CT ---
PRELIMINARY REPORT/[facility]/EMERGENCY AFTER HOURS PROCEDURE: Receipt of this report by the clinical staff was confirmed with JERRY ORTIZ MD by Devang dutta on Nov 18, 2020 01:49:00 AIRPORT OPERATIONS DUTY MANAGER. Addendum electronically signed by Benita dutta on November 18, 2020 1:50:22 AM AIRPORT OPERATIONS DUTY MANAGER EXAM: CTA Chest with Intravenous Contrast CT Abdomen and Pelvis with Intravenous Contrast. CLINICAL HISTORY: M40, ABD PAIN WITH N/V FOR THE PAST WEEK. PT HAD RECENT GASTRIC BYPASS TECHNIQUE: Axial CTA images of the chest, CT images of the abdomen and pelvis with intravenous contra st. Three-dimensional MIP/volume rendered reformations were performed. CONTRAST: With; ISOVUE 370,100mL COMPARISON: None provided. FINDINGS: CTA CHEST : Pulmonary arteries: Timing of contrast limits evaluation of the pulmonary arteries, however there is no evidence of a pulmonary embolism within the limitations. Lungs: Linear atelectasis at the lung bases. Pleural spaces: No pleural effusion. No pneumothorax. Heart and mediastinum: No cardiomegaly. No significant pericardial effusion. Aorta: No acute finding. No aortic aneurysm. CT ABDOMEN: Liver: Tubular hyperenhancing structure in the right hepatic lobe likely represents a vascular shunt. Gallbladder and bile ducts: Status post cholecystectomy. Pancreas: Unremarkable. No ductal dilation. Spleen: Unremarkable. Adrenals: No mass. Kidneys and ureters: The kidneys enhance symmetrically. No hydronephrosis. No solid mass. Stomach and bowel: Oral contrast remains within the esophagus. Status post gastric bypass procedure. Curvilinear hyperdensity at the excluded stomach which may represent site of the leak (series 2, image 94) however differentiation from surgical material at this level is difficult. Adjacent to the wall of the gastric fundus of the excluded stomach there appears to be a 10.3 x 5.6 x 10.6 cm heterogeneous collection in the fluid and gas which is indeterminate if it is a expanded portion of the stomach, and intramural collection or a collection adjacent to the wall of this stomac h. There is a 4.7 x 1.6 x 1.8 cm tubular outpouching at the left superior aspect. There is a thickened loop of bowel in the left upper quadrant with a curvilinear line of contrast appears to ext end extraluminally (series 601, image 54) and a fistula to the bowel wall is not excluded There is focal fat stranding surrounding a segment of mid transverse colon. Appendix: Normal appendix. CT PELVIS: Bladder: Unremarkable. Reproductive: Unremarkable as visualized. Peritoneum: Small amount of hyperdense fluid in the pelvis (average 66 HU). Lymph nodes: No lymphadenopathy. Bones and soft tissues: No acute osseous abnormality. The soft tissues are unremarkable. IMPRESSION: Timing of contrast limits evaluation of the pulmonary arteries, however there is no evide nce of a pulmonary embolism within the limitations. Status post gastric bypass procedure. Oral contrast remains within the esophagus. Small amount of hyperdense fluid in the pelvis which is suspic ious for a leak. Curvilinear hyperdensity at the excluded stomach which may represent site of the leak however differentiation from surgical material at this level is difficult. Adjacent to the wall of the gastric fundus of the excluded stomach there appears to be a 10.3 x 5.6 x 10.6 cm heterogeneous collection in the fluid and gas which is suspicious for a change collection secondary t o a leak at the anastomosis versus less likely add an a expanded portion of the stomach or intramural collection. There is a 4.7 x 1.6 x 1.8 cm tubular outpouching at the left superior aspect. There is a thickened loop of bowel in the left upper quadrant with a curvilinear line of contrast cora ears to extend extraluminally and a fistula is not excluded. There is focal fat stranding surrounding a segment of mid transverse colon which may be reactive. ELECTRONICALLY SIGNED BY: Cheyenne Sherwood MD Nov 18, 2020 1:45:06 AM AIRPORT OPERATIONS DUTY MANAGER FINAL REPORT CT ARTERIOGRAM CHEST WITH IV CONTRAST AND 3D IMAGING: DATE: 11/18/2020. TIME: Performed on emergency basis at 0048 hours. HISTORY: Dyspnea. Chest pain. COMPARISON: 11/09/2020. FINDINGS: Agree with the preliminary report by Dr. Sherwood from direct radiology. There is very limited contra st opacification of the pulmonary arteries. No central filling defects are apparent. Dependent bibasilar atelectasis and residual contrast within the esophagus noted. Abnormalities of the upper abdomen are better detailed on dedicated CT abdomen exam performed at the same time and reported separately. Transcribed Date/Time: 11/18/2020 9:12 AM
--- NOTE | 2020-11-18 10:07 | CT ---
PRELIMINARY REPORT/[facility]/EMERGENCY AFTER HOURS PROCEDURE: Receipt of this report by the clinical staff was confirmed with JERRY ORTIZ MD by Devang dutta on Nov 18, 2020 01:49:00 FACILITY SALES AND ADMIN. Addendum electronically signed by Benita dutta on November 18, 2020 1:50:22 AM FACILITY SALES AND ADMIN EXAM: CTA Chest with Intravenous Contrast CT Abdomen and Pelvis with Intravenous Contrast. CLINICAL HISTORY: M40, ABD PAIN WITH N/V FOR THE PAST WEEK. PT HAD RECENT GASTRIC BYPASS TECHNIQUE: Axial CTA images of the chest, CT images of the abdomen and pelvis with intravenous contra st. Three-dimensional MIP/volume rendered reformations were performed. CONTRAST: With; ISOVUE 370,100mL COMPARISON: None provided. FINDINGS: CTA CHEST : Pulmonary arteries: Timing of contrast limits evaluation of the pulmonary arteries, however there is no evidence of a pulmonary embolism within the limitations. Lungs: Linear atelectasis at the lung bases. Pleural spaces: No pleural effusion. No pneumothorax. Heart and mediastinum: No cardiomegaly. No significant pericardial effusion. Aorta: No acute finding. No aortic aneurysm. CT ABDOMEN: Liver: Tubular hyperenhancing structure in the right hepatic lobe likely represents a vascular shunt. Gallbladder and bile ducts: Status post cholecystectomy. Pancreas: Unremarkable. No ductal dilation. Spleen: Unremarkable. Adrenals: No mass. Kidneys and ureters: The kidneys enhance symmetrically. No hydronephrosis. No solid mass. Stomach and bowel: Oral contrast remains within the esophagus. Status post gastric bypass procedure. Curvilinear hyperdensity at the excluded stomach which may represent site of the leak (series 2, image 94) however differentiation from surgical material at this level is difficult. Adjacent to the wall of the gastric fundus of the excluded stomach there appears to be a 10.3 x 5.6 x 10.6 cm heterogeneous collection in the fluid and gas which is indeterminate if it is a expanded portion of the stomach, and intramural collection or a collection adjacent to the wall of this stomac h. There is a 4.7 x 1.6 x 1.8 cm tubular outpouching at the left superior aspect. There is a thickened loop of bowel in the left upper quadrant with a curvilinear line of contrast appears to ext end extraluminally (series 601, image 54) and a fistula to the bowel wall is not excluded There is focal fat stranding surrounding a segment of mid transverse colon. Appendix: Normal appendix. CT PELVIS: Bladder: Unremarkable. Reproductive: Unremarkable as visualized. Peritoneum: Small amount of hyperdense fluid in the pelvis (average 66 HU). Lymph nodes: No lymphadenopathy. Bones and soft tissues: No acute osseous abnormality. The soft tissues are unremarkable. IMPRESSION: Timing of contrast limits evaluation of the pulmonary arteries, however there is no evide nce of a pulmonary embolism within the limitations. Status post gastric bypass procedure. Oral contrast remains within the esophagus. Small amount of hyperdense fluid in the pelvis which is suspic ious for a leak. Curvilinear hyperdensity at the excluded stomach which may represent site of the leak however differentiation from surgical material at this level is difficult. Adjacent to the wall of the gastric fundus of the excluded stomach there appears to be a 10.3 x 5.6 x 10.6 cm heterogeneous collection in the fluid and gas which is suspicious for a change collection secondary t o a leak at the anastomosis versus less likely add an a expanded portion of the stomach or intramural collection. There is a 4.7 x 1.6 x 1.8 cm tubular outpouching at the left superior aspect. There is a thickened loop of bowel in the left upper quadrant with a curvilinear line of contrast cora ears to extend extraluminally and a fistula is not excluded. There is focal fat stranding surrounding a segment of mid transverse colon which may be reactive. ELECTRONICALLY SIGNED BY: Cheyenne Sherwood MD Nov 18, 2020 1:45:06 AM FACILITY SALES AND ADMIN FINAL REPORT CT ABDOMEN AND PELVIS WITH IV AND ORAL CONTRAST: DATE: 11/18/2020. TIME: Performed on emergency basis at 0049 hours. HISTORY: Abdominal pain. Nausea vomiting. Recent gastric bypass procedure. COMPARISON: 11/09/2020. FINDINGS: Agree with the preliminary report by [facility]. The large irregular shaped gas and fluid collection within the left upper quadrant lateral to the excluded stomach has enlarged only slightly since the most recent exam but now contains a significant amount of gas in the nondepen dent portion. Small linear hyperdensities adjacent to the gastric fundus and the thickened loop of small bowel within the left upper quadrant have not changed significantly and are favored to be relat ed to surgical material rather than acute contrast leak. 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 It may represent an area of enteric leak on the prior study which is not cur rently patent. Hyperdense material within the dependent portion of the pelvis and around the liver has decreased sli ghtly since the prior study and could be related to blood product (rather than leaking enteric contrast). Details of the exam, findings, and impression were discussed with Dr. Davila at the time of the dic tation.. Code CR. Transcribed Date/Time: 11/18/2020 10:57 AM
[2020-11-18 10:58] LABS: INR-International Normal Ratio 1.2; PTT 28.4 sec (22.9-36.1); Prothrombin Time 15.2 sec (12.0-14.7)
[2020-11-18 11:18] LABS: #Lymphocytes 2.3 thou/uL (1.20-3.40); #Monocytes 2.4 thou/uL (0.11-0.59); #Neutrophils 19.6 thou/uL (1.40-6.50); %Basophils 0.1 % (0.0-1.0); %Eosinophils 0.1 % (0.0-10.0); %Lymphocytes 9.3 % (21.0-51.0); %Neutrophils 80.5 % (42.0-75.0); Hemoglobin 13.8 g/dL (14.0-18.0); Mean Corpuscular HGB CONC 31.4 g/dL (32.0-36.0); Mean Corpuscular Hemoglobin 29.1 pg (27.0-31.0); Mean Corpuscular Volume 92.6 fL (78.0-98.0); Mean Platelet Volume 7.9 fL (7.4-10.4); Platelet Count 561 thou/uL (130-400); RBC Distribution Width 13.9 % (11.5-14.5); Red Blood Cell (RBC) Count 4.73 mill/uL (4.70-6.10); White Blood Cell (WBC) Count 24.3 thou/uL (4.8-10.8)
--- NOTE | 2020-11-18 11:20 | HP ---
CHIEF COMPLAINT: Abdominal abscess. HISTORY OF PRESENT ILLNESS: This is a 39-year-old male who presents with a history of multiple postop issues since his gastric bypass on 11/03. He was readmitted to the hospital, found to be COVID positive, discharged after supportive care, now presents with more abdominal pain and initially presented with tachycardia. His tachycardia has resolved in the ER with some IV fluids. Discussed with Dr. Torres. His CT now shows what appears to be gas and fluid in this area of previous hematoma. I have discussed with Dr. Torres who thinks it is amenable to attempted percutaneous drainage. PAST MEDICAL HISTORY: Includes PTSD, anxiety, hypertension, GERD. PAST SURGICAL HISTORY: Gastric bypass, cholecystectomy. MEDICINES: 1. Clonazepam. 2. Cialis. 3. Inderal. 4. Potassium. 5. Levothyroxine. 6. Hydrocodone. 7. Vitamin D. 8. Dexilant. ALLERGIES: MORPHINE. SOCIAL HISTORY: No smoking, alcohol, or other drugs. REVIEW OF SYSTEMS: Otherwise, negative. PHYSICAL EXAMINATION: VITAL SIGNS: His pulse is 105, blood pressure is stable, he is afebrile. CHEST: Coarse. HEART: Regular rate. ABDOMEN: Soft, tender epigastric. Incisions healing well. LABORATORY DATA: White blood cell count is 21, no significant left shift. Sodium 137, potassium 3.5, creatinine 1.13. ASSESSMENT: History of gastric bypass with multiple postop issues now with likely infected hematoma. PLAN: Discussed with Dr. Torres who is going to percutaneously drain. If not amenable to percutaneous drainage, may need laparoscopic washout versus upper laparotomy. Job ID: [id number]
[2020-11-18] MEDS ORDERED: Fentanyl 100 MCG/2 ML VIAL ONE ×2 (12:00→12:52)
[2020-11-18] MEDS ORDERED: Midazolam HCl 2 mg/2 ml Vial ONE ×2 (12:00→12:52)
[2020-11-18] MEDS ORDERED: Sodium Bicarbonate 2.5 MEQ/5 ML VIAL ONE (12:01)
[2020-11-18] MEDS ORDERED: Ondansetron PF 4 MG/2 ML Vial IVP PRN ×2 (14:19→19:56)
[2020-11-18] MEDS ORDERED: Dextrose 50% Abboject 50 ML SYRINGE SLOW IVP PRN (14:19)
[2020-11-18] MEDS ORDERED: Hydrocodone-Acetamin 15 ML UDCUP PO PRN (14:19)
[2020-11-18] MEDS ORDERED: Promethazine HCl 25 MG/ML VIAL IM PRN (14:19)
[2020-11-18] MEDS ORDERED: Fentanyl 100 MCG/2 ML VIAL SLOW IVP PRN ×2 (14:19)
[2020-11-18] MEDS ORDERED: hydrALAZINE 20 MG/ML VIAL SLOW IVP PRN (14:19)
[2020-11-18] MEDS ORDERED: Dextrose 5% in Water 1,000 ML IV PRN (14:19)
--- NOTE | 2020-11-18 14:19 | CT ---
CT-guided abdominal hematoma/abscess drainage Conscious sedation: At least 30 minutes spent with the patient for conscious sedation. HISTORY: Postoperative fluid collection left upper quadrant. FINDINGS: After explaining the procedure and answering all questions, limited CT imaging of the abdom en was performed. Sterile technique, buffered local anesthesia, CT guidance, conscious sedation, and a left subxiphoid approach were used to carefully advance a 19-gauge trocar needle into the gas and fluid collection in the left upper quadrant just lateral to the gastric fundus. Position was confirmed with CT. 0.035 Amplatz wire was placed and tract dilated to 8 Montserratian. A locking loop 8 Montserratian catheter was the n carefully inserted without difficulty. Approximately 60 cc dark red blood was aspirated and eventually sent to laboratory for analysis. During the insertion, the patient described no significan t discomfort. As the initial aspiration was performed, patient did report pain. Aspiration was temporarily halted. Catheter was eventually left draining to gravity and secured externally with a dr perdomo. Dr. Davila attended the procedure, with details discussed. Patient tolerated the procedure well and was eventually returned in unchanged condition. IMPRESSION : Technically successful CT-guided left upper quadrant hematoma/abscess drainage. Pathology is pending.
[2020-11-18] MEDS ORDERED: Propranolol 40 MG TAB PO SCH (15:00)
[2020-11-18] MEDS: Piperacillin/Tazobactam 3.375 GM in Sodium Chloride 0.9% 100 ML IVPB SCH ×2 (15:05→20:37)
[2020-11-18] MEDS: D5 1/2 NS w/20 mEq KCL 1,000 ML IV SCH (15:05)
[2020-11-18 15:22] LABS: Body Fluid Source Abscess Fluid; Tube # EDTA
[2020-11-18 15:23] LABS: BF Color Red; Clarity Cloudy/Turbid (Clear)
[2020-11-18 16:22] LABS: Hemoglobin 14.8 g/dL (14.0-18.0)
[2020-11-18] MEDS ORDERED: Sodium Chloride 0.9% 1,000 ML IV SCH (17:00)
[2020-11-18] MEDS ORDERED: Naloxone HCl 0.4 mg/ml Vial IV PRN (19:56)
[2020-11-18] MEDS ORDERED: Zolpidem Tartrate 5 MG TAB PO PRN (19:56)
[2020-11-18] MEDS ORDERED: diphenhydrAMINE 25 MG CAP PO PRN (19:56)
[2020-11-18] MEDS ORDERED: diphenhydrAMINE 50 MG/ML VIAL IVP PRN (19:56)
[2020-11-18] MEDS ORDERED: diphenhydrAMINE 50 MG/ML VIAL IM PRN (19:56)
[2020-11-18] MEDS ORDERED: Communication Order-Pharmacy FS SCH (20:00)
[2020-11-18] MEDS: Nortriptyline HCl 25 MG CAP PO SCH (20:35)
[2020-11-18] MEDS: Losartan 25 MG TAB PO SCH (20:36)
[2020-11-18] MEDS: Famotidine/PF 20 mg/2ml Vial SLOW IVP SCH (20:36)
[2020-11-18] MEDS: Metoprolol Tartrate 5 MG/5 ML VIAL IVP SCH (20:45)
[2020-11-18] MEDS: fentaNYL Citrate/PF 2,000 MCG in Sodium Chloride 0.9% 60 ML IV PRN (20:47)
[2020-11-18] MEDS ORDERED: clonazePAM 1 MG TAB PO SCH (21:00)
[2020-11-18] MEDS: Famotidine 20 MG TAB PO SCH (21:29)
[2020-11-19] MEDS: D5 1/2 NS w/20 mEq KCL 1,000 ML IV SCH ×3 (00:06→18:15)
[2020-11-19] MEDS: Piperacillin/Tazobactam 3.375 GM in Sodium Chloride 0.9% 100 ML IVPB SCH ×4 (03:33→21:01)
[2020-11-19 05:50] LABS: #Lymphocytes 1.5 thou/uL (1.20-3.40); #Monocytes 1.4 thou/uL (0.11-0.59); #Neutrophils 16.5 thou/uL (1.40-6.50); %Basophils 0.1 % (0.0-1.0); %Eosinophils 0.2 % (0.0-10.0); %Lymphocytes 7.8 % (21.0-51.0); %Monocytes 7.4 % (0.0-10.0); %Neutrophils 84.6 % (42.0-75.0); Hemoglobin 13.1 g/dL (14.0-18.0); Mean Corpuscular HGB CONC 32.5 g/dL (32.0-36.0); Mean Corpuscular Hemoglobin 30.3 pg (27.0-31.0); Mean Corpuscular Volume 93.3 fL (78.0-98.0); Mean Platelet Volume 8.3 fL (7.4-10.4); Platelet Count 463 thou/uL (130-400); RBC Distribution Width 13.7 % (11.5-14.5); Red Blood Cell (RBC) Count 4.33 mill/uL (4.70-6.10); White Blood Cell (WBC) Count 19.5 thou/uL (4.8-10.8)
[2020-11-19 06:09] LABS: Anion Gap 14 mmol/L (10-20); BUN (Urea Nitrogen) 10 mg/dL (8.9-20.6); Calc. Creatinine Clearance 0 mL/min (70-130); Calcium 7.8 mg/dL (7.8-10.44); Carbon Dioxide 24 mmol/L (22-29); Chloride 102 mmol/L (98-107); Glucose 165 mg/dL (70-105); Potassium 3.5 mmol/L (3.5-5.1); Sodium 136 mmol/L (136-145)
[2020-11-19] MEDS: Metoprolol Tartrate 5 MG/5 ML VIAL IVP SCH ×3 (06:10→21:01)
[2020-11-19] MEDS: Levothyroxine 150 MCG TAB PO SCH (06:10)
[2020-11-19] MEDS ORDERED: Sodium Chloride 0.9% 1,000 ML IV SCH ×2 (07:00→15:30)
[2020-11-19 07:52] LABS: Bacteria/HPF None Seen HPF (None Seen); Bilirubin Negative (Negative); Blood, Urine Negative (Negative); Clarity Extra Turbid (Clear); Glucose, Urine (Dipstick) 200 mg/dL (Negative); Ketone, Urine Trace mg/dL (Negative); Leukocyte Negative Leu/uL (Negative); Nitrite Negative (Negative); Protein, Urine (Dipstick) 30 mg/dL (Neg-Trace); RBC/HPF None Seen HPF (0-3); Specific Gravity, Urine 1.039 (1.002-1.036); Squamous Epithelial None Seen HPF (0-3); WBC/HPF None Seen HPF (0-3)
[2020-11-19 07:53] LABS: Urine Culture Reflex No No
[2020-11-19 09:12] VITALS: BMI 38.9
--- NOTE | 2020-11-19 09:45 | PRG ---
DATE OF SERVICE: 11/19/2020 SUBJECTIVE: Mr. Pimentel feels slightly better today. His pain is better controlled with the TERRAZZO POLISHER. His breathing has slowed down. He did wake up multiple times last night with pain. He did vomit once after a hiccup. The Phenergan seems to be working better for the nausea. PHYSICAL EXAMINATION: VITAL SIGNS: His pulse is 119. He is 94% on 2 L nasal cannula. He is afebrile at 98.5, blood pressure 127/81. CHEST: Coarse breath sounds bilateral. HEART: Increased rate, regular rhythm. ABDOMEN: Soft, appropriately tender. Wounds, no infection. LABORATORY DATA: White blood cell count is 19, hemoglobin 13, platelet count is 463. Sodium 136, potassium 3.5, creatinine 0.84. Drain output is not recorded, but it appears to be old appearing blood in the bag. His culture of the aspirate is pending. ASSESSMENT: 1. Status post percutaneous drainage of infected hematoma. 2. Gastric remnant. 3. Tachycardia, improving. 4. COVID status stable, only mild cough. CT chest two days ago showed no significant infiltrate. 5. Nausea and vomiting, status post gastric bypass. I suspect will improve as the swelling improves and continue Zosyn for now. Await culture results. Job ID: [id number]
[2020-11-19] MEDS: Pantoprazole 40 MG VIAL IVP SCH (10:22)
[2020-11-19] MEDS: Famotidine 20 MG TAB PO SCH (10:40)
[2020-11-19] MEDS: Famotidine/PF 20 mg/2ml Vial SLOW IVP SCH (10:41)
[2020-11-19] MEDS: Nortriptyline HCl 25 MG CAP PO SCH (21:00)
[2020-11-19] MEDS: Enoxaparin Sodium 40 MG/0.4 ML SYRINGE SC SCH (21:00)
[2020-11-19] MEDS: Losartan 25 MG TAB PO SCH (21:01)
[2020-11-20] MEDS: Piperacillin/Tazobactam 3.375 GM in Sodium Chloride 0.9% 100 ML IVPB SCH ×4 (02:56→21:38)
[2020-11-20] MEDS: D5 1/2 NS w/20 mEq KCL 1,000 ML IV SCH ×3 (02:57→14:15)
[2020-11-20] MEDS: Metoprolol Tartrate 5 MG/5 ML VIAL IVP SCH ×3 (05:31→21:38)
[2020-11-20] MEDS: fentaNYL Citrate/PF 2,000 MCG in Sodium Chloride 0.9% 60 ML IV PRN (05:32)
[2020-11-20] MEDS: Levothyroxine 150 MCG TAB PO SCH (05:32)
[2020-11-20 05:36] LABS: #Eosinphils 0.2 thou/uL (0.0-0.7); #Lymphocytes 1.4 thou/uL (1.20-3.40); #Monocytes 1.2 thou/uL (0.11-0.59); #Neutrophils 10.7 thou/uL (1.40-6.50); %Basophils 0.2 % (0.0-1.0); %Eosinophils 1.3 % (0.0-10.0); %Lymphocytes 10.6 % (21.0-51.0); %Monocytes 8.7 % (0.0-10.0); %Neutrophils 79.2 % (42.0-75.0); Hemoglobin 11.3 g/dL (14.0-18.0); Mean Corpuscular HGB CONC 32.6 g/dL (32.0-36.0); Mean Corpuscular Hemoglobin 30.7 pg (27.0-31.0); Mean Corpuscular Volume 94.1 fL (78.0-98.0); Mean Platelet Volume 8.1 fL (7.4-10.4); Platelet Count 370 thou/uL (130-400); RBC Distribution Width 13.5 % (11.5-14.5); Red Blood Cell (RBC) Count 3.68 mill/uL (4.70-6.10); White Blood Cell (WBC) Count 13.5 thou/uL (4.8-10.8)
[2020-11-20 06:00] LABS: ALT (SGPT) 121 U/L (8-55); AST (SGOT) 146 U/L (5-34); Albumin 2.3 g/dL (3.5-5.0); Alkaline Phosphatase 65 U/L (40-110); Anion Gap 14 mmol/L (10-20); BUN (Urea Nitrogen) 7 mg/dL (8.9-20.6); Bilirubin, Total 1.9 mg/dL (0.2-1.2); Calc. Creatinine Clearance 222 mL/min (70-130); Calcium 7.6 mg/dL (7.8-10.44); Carbon Dioxide 24 mmol/L (22-29); Chloride 102 mmol/L (98-107); Globulin 3.2 g/dL (2.4-3.5); Glucose 133 mg/dL (70-105); Potassium 3.8 mmol/L (3.5-5.1); Protein, Total 5.5 g/dL (6.0-8.3); Sodium 136 mmol/L (136-145)
[2020-11-20] MEDS ORDERED: Diabetic Tussin 200 MG/10 ML UDCUP PO PRN (07:22)
[2020-11-20] MEDS: Pantoprazole 40 MG VIAL IVP SCH (09:22)
--- NOTE | 2020-11-20 11:50 | EKG ---
Test Reason : ABD PAIN Blood Pressure : / mmHG Vent. Rate : 129 BPM Atrial Rate : 129 BPM P-R Int : 138 ms QRS Dur : 074 ms QT Int : 318 ms P-R-T Axes : 041 034 051 degrees QTc Int : 465 ms Sinus tachycardia Possible Left atrial enlargement Borderline ECG Confirmed by JERRY ORTIZ M.D. ([id number]), deputy editor in chief TETE LAWLER ([id number]) on 11/20/2020 11:50:04 AM Referred By: Confirmed By:JERRY ORTIZ M.D.
--- NOTE | 2020-11-20 13:42 | PRG ---
DATE OF SERVICE: 11/20/2020 SUBJECTIVE: Mr. Pimentel feels better today. He is tolerating the clear liquids now. Pain is improved. OBJECTIVE: VITAL SIGNS: Afebrile. Vital signs are stable. ABDOMINAL EXAM: Benign. LABORATORY DATA: White cell count is down to 13, bilirubin is down. ASSESSMENT: Stable status post percutaneous drainage of remnant stomach, it is likely small PLAN: Add Diflucan. He has yeast growing in his culture. Advanced to full liquid diet. Job ID: [id number]
[2020-11-20] MEDS: Fluconazole In NaCl,Iso-Osm 200 MG in Premix Bag 1 BAG IVPB SCH (13:46)
[2020-11-20] MEDS: Enoxaparin Sodium 40 MG/0.4 ML SYRINGE SC SCH (21:38)
[2020-11-20] MEDS: Nortriptyline HCl 25 MG CAP PO SCH (21:39)
[2020-11-20] MEDS: Losartan 25 MG TAB PO SCH (21:40)
[2020-11-21] MEDS: Piperacillin/Tazobactam 3.375 GM in Sodium Chloride 0.9% 100 ML IVPB SCH ×4 (02:44→21:00)
[2020-11-21] MEDS: Metoprolol Tartrate 5 MG/5 ML VIAL IVP SCH (05:09)
[2020-11-21] MEDS: Levothyroxine 150 MCG TAB PO SCH (05:09)
[2020-11-21] MEDS: D5 1/2 NS w/20 mEq KCL 1,000 ML IV SCH ×2 (06:13→15:45)
[2020-11-21] MEDS: Pantoprazole 40 MG VIAL IVP SCH (09:23)
--- NOTE | 2020-11-21 10:17 | PRG ---
DATE OF SERVICE: 11/21/2020 SUBJECTIVE: Mr. Pimentel pulled his drain out on accident. He has no complaints. His pain is better controlled now that the drain is out. His shortness of breath is improved. He still has a dry cough. No nausea with the clear liquids. They never got him his full liquids last night. OBJECTIVE: VITAL SIGNS: Pulse 112, blood pressure 120/78, 95% on 2 L nasal cannula. ABDOMEN: Soft, appropriately tender. Wounds healing well. No infection. No new labs today. ASSESSMENT: 1. Status post gastric bypass with remnant stomach hematoma that got infected. Status post percutaneous drain, it is out now. Hopefully, it does not need to be reinserted. Will need a followup CAT scan at some point. 2. Coronavirus disease status. Still having shortness of breath, but otherwise stable. 3. Slow progress on liquids, although improved. Advanced to bariatric fulls and see how he does. 4. Chanell grew out in his aspirate from the stomach, on Diflucan and Zosyn. 5. Posttraumatic stress disorder. PLAN: We will change his IV back to oral beta-baylee. Will need followup CAT scan, probably this week sometime. Clinically, he looks better, feels better. Advanced to fulls. Probably home in the next day or 2. We will leave him on the BACTERIOLOGY RESEARCH ASSISTANT now just because it is harder for nurses to be in another room for intermittent IV boluses and I do not think he is ready for Lortab elixir yet. Job ID: [id number]
[2020-11-21] MEDS: Fluconazole In NaCl,Iso-Osm 200 MG in Premix Bag 1 BAG IVPB SCH (12:54)
[2020-11-21] MEDS: Promethazine HCl 25 MG/ML VIAL IM PRN (18:55)
[2020-11-21] MEDS: fentaNYL Citrate/PF 2,000 MCG in Sodium Chloride 0.9% 60 ML IV PRN (18:56)
[2020-11-21] MEDS: Enoxaparin Sodium 40 MG/0.4 ML SYRINGE SC SCH (20:58)
[2020-11-21] MEDS: Losartan 25 MG TAB PO SCH ×2 (20:59)
[2020-11-21] MEDS: Nortriptyline HCl 25 MG CAP PO SCH ×2 (20:59)
[2020-11-22] MEDS: Promethazine HCl 25 MG/ML VIAL IM PRN ×2 (00:55→13:52)
[2020-11-22] MEDS: Piperacillin/Tazobactam 3.375 GM in Sodium Chloride 0.9% 100 ML IVPB SCH ×4 (03:20→20:44)
[2020-11-22] MEDS: Levothyroxine 150 MCG TAB PO SCH (04:51)
[2020-11-22] MEDS: Pantoprazole 40 MG VIAL IVP SCH (10:24)
[2020-11-22] MEDS: Propranolol HCl LA 60 MG CAP PO SCH (10:26)
--- NOTE | 2020-11-22 12:45 | PRG ---
DATE OF SERVICE: SUBJECTIVE: Zachary Pimentel states today he feels bad, but does not have any pain. He tried his bariatric fulls yesterday, but did not tolerate them well. He has tried pureed, does not tolerating well. He is tolerating liquids. OBJECTIVE: VITAL SIGNS: Temperature 98.9 degrees, heart rate 101, blood pressure 132/82. LUNGS: Clear to auscultation. CARDIAC: Regular rate and rhythm without murmur or gallop. ABDOMEN: Soft. The patient had a CT-guided drainage of a left upper quadrant collection. Cultures revealed skin katelynn and yeast. He is on Zosyn and Diflucan. This tube was removed accidentally over the weekend. ASSESSMENT AND PLAN: Left upper quadrant fluid collection, status post laparoscopic Frankie-en-Y gastric bypass; coronavirus disease illness; embolization of arteriovenous malformation, gastric remnant area. He has had significant drainage from this, it seemed to be decreasing before the tube was accidentally removed. I have talked to Dr. Torres today. We will plan CT scan of the abdomen and pelvis today to follow up the collection and plan drainage if indicated, replaced the catheter. Job ID: [id number]
[2020-11-22] MEDS: Fluconazole In NaCl,Iso-Osm 200 MG in Premix Bag 1 BAG IVPB SCH (14:51)
--- NOTE | 2020-11-22 17:15 | CT ---
CT abdomen and pelvis with IV and oral contrast HISTORY: Inadvertent removal of drainage catheter for abdominal hematoma/abscess. COMPARISON: 11/18/2020. FINDINGS: Small amount of left pleural fluid and bibasilar atelectasis now present. Postoperative changes of the stomach again demonstrated. The large, lobular fluid collection just to the left of the excluded gastric remnant is again demonstrated. It measures up to 11.5 cm depth by 10.7 cm width by 7.9 cm length. Small amount of internal hyperdensity is consistent with oral contras t material. Small amount of adjacent stranding. The wall of the fluid collection is much thinner and more well-defined, less inflamed than on the prior exam. Small amount of free fluid within the dependent portion of the pelvis is similar in volume but less d ense than on the prior study. No evidence of bowel obstruction. Other findings are stable. IMPRESSION : Persistent, somewhat matured contained leak from the left side of the excluded gastric remnant, favor ed to arise from the superior margin of the gastric suture row. Repeat placement of a percutaneous drainage catheter is planned. Small left pleural effusion.
[2020-11-22] MEDS: D5 1/2 NS w/20 mEq KCL 1,000 ML IV SCH ×2 (19:38→20:45)
[2020-11-22] MEDS: Nortriptyline HCl 25 MG CAP PO SCH (20:44)
[2020-11-22] MEDS: Enoxaparin Sodium 40 MG/0.4 ML SYRINGE SC SCH (20:44)
[2020-11-22] MEDS: Losartan 25 MG TAB PO SCH (20:44)
[2020-11-23] MEDS: fentaNYL Citrate/PF 2,000 MCG in Sodium Chloride 0.9% 60 ML IV PRN (00:34)
[2020-11-23] MEDS: D5 1/2 NS w/20 mEq KCL 1,000 ML IV SCH ×4 (00:49→20:11)
[2020-11-23] MEDS: Piperacillin/Tazobactam 3.375 GM in Sodium Chloride 0.9% 100 ML IVPB SCH ×4 (02:35→20:10)
[2020-11-23 05:41] LABS: #Basophils 0.1 thou/uL (0.0-0.2); #Eosinphils 0.2 thou/uL (0.0-0.7); #Lymphocytes 1.7 thou/uL (1.20-3.40); #Monocytes 1.1 thou/uL (0.11-0.59); #Neutrophils 5.6 thou/uL (1.40-6.50); %Basophils 0.8 % (0.0-1.0); %Eosinophils 2.7 % (0.0-10.0); %Lymphocytes 19.7 % (21.0-51.0); %Monocytes 12.5 % (0.0-10.0); %Neutrophils 64.3 % (42.0-75.0); Mean Corpuscular HGB CONC 34.7 g/dL (32.0-36.0); Mean Corpuscular Hemoglobin 32.1 pg (27.0-31.0); Mean Corpuscular Volume 92.4 fL (78.0-98.0); Mean Platelet Volume 8.3 fL (7.4-10.4); Platelet Count 392 thou/uL (130-400); RBC Distribution Width 13.3 % (11.5-14.5); Red Blood Cell (RBC) Count 3.74 mill/uL (4.70-6.10); White Blood Cell (WBC) Count 8.8 thou/uL (4.8-10.8)
[2020-11-23] MEDS: Levothyroxine 150 MCG TAB PO SCH (05:50)
[2020-11-23 06:10] LABS: Anion Gap 18 mmol/L (10-20); BUN (Urea Nitrogen) 4 mg/dL (8.9-20.6); Calc. Creatinine Clearance 201 mL/min (70-130); Calcium 7.9 mg/dL (7.8-10.44); Carbon Dioxide 20 mmol/L (22-29); Chloride 104 mmol/L (98-107); Glucose 92 mg/dL (70-105); Potassium 3.9 mmol/L (3.5-5.1); Sodium 138 mmol/L (136-145)
[2020-11-23] MEDS: Pantoprazole 40 MG VIAL IVP SCH (08:16)
[2020-11-23] MEDS: Propranolol HCl LA 60 MG CAP PO SCH (08:19)
[2020-11-23] MEDS ORDERED: Thiamine HCl 200 MG/2 ML VIAL IM SCH (09:00)
[2020-11-23] MEDS ORDERED: Multivit, Adult Inj 10 ML VIAL IV SCH (09:00)
[2020-11-23] MEDS ORDERED: Multivitamins, Adult 10 ML in Sodium Chloride 0.9% 1,000 ML IV SCH (09:00)
[2020-11-23] MEDS ORDERED: Midazolam HCl 2 mg/2 ml Vial ONE (09:28)
[2020-11-23] MEDS ORDERED: Fentanyl 100 MCG/2 ML VIAL ONE (09:28)
[2020-11-23] MEDS ORDERED: Sodium Bicarbonate 2.5 MEQ/5 ML VIAL ONE (09:28)
--- NOTE | 2020-11-23 11:36 | CT ---
CT-guided abdominal abscess drainage Conscious sedation: At least 30 minutes spent with the patient for conscious sedation. HISTORY: Abdominal abscess. Inadvertent removal of previous catheter. FINDINGS: After explaining the procedure and answering all questions, limited CT imaging the upper ab domen was performed. Sterile technique, buffered local anesthesia, CT guidance, conscious sedation, and a left anterior chavez bcostal approach were used to carefully advance the tip of a 19-gauge needle into the large gas and fluid collection immediately to the left of the gastric remnant in the left upper quadrant. Position confirmed with CT. Guidewire was placed. Tract was dilated to 8 Lao, and an 8 Lao lock ing loop drainage catheter was carefully placed into the fluid collection. Approximately 150 cc of mildly bloody liquid was drained. A portion sent to laboratory. Gas also came from the aspirate. Catheter was left draining to gravity and secured externally with 0 silk suture. IMPRESSION : Technically successful CT-guided drainage left upper quadrant abscess.
[2020-11-23 11:54] LABS: Magnesium 1.8 mg/dL (1.6-2.6); Phosphorus 4.1 mg/dL (2.3-4.7)
--- NOTE | 2020-11-23 13:15 | PRG ---
DATE OF SERVICE: 11/23/2020 SUBJECTIVE: Mr. Pimentel last night had a CAT scan of the abdomen and pelvis, in followup after accidentally the patient removing his percutaneous drain. This CAT scan revealed reaccumulation of air fluid process left upper quadrant between his gastric remnant and gastric pouch; 10.7 x 7.9 cm with air-fluid level. The patient was taken back to the operating room, where the drain was placed percutaneously, CT-guided, draining 150 mL of mild bloody fluid sent to the laboratory. Gas also came from the aspirate. Drain secured with a silk suture. 98.3 degrees, 87, 134/76. Laboratories this morning reveals a white count of 8, down from 13 yesterday and 19 the day before and 24 day prior to that. Differential is unremarkable. Hemoglobin 12, stable. Basic metabolic profile normal. Renal function normal. Previous cultures from the drain 11/18/2020 when initially placed revealed pao and streptococcus and Haemophilus parainfluenza. He is on Diflucan and Zosyn. I discussed with Dr. Gonzalez Torres, radiologist these findings. We reviewed his CAT scan, considered it is unlikely that his gastric remnant would call such a problem. It is felt he is probably more than likely has a leak from gastrojejunostomy. I have talked to Dr. Sidney Kingston in [place] regarding this and Interventional Radiology hopefully can resolve this nonsurgically and we will plan transfer by ground ambulance to [facility]. Once I resolved the problem due to the procedures, we will take him back. The patient will be initiated on TPN and bowel rest in the interim. I have discussed with , who is in agreement. The patient reports that he still does not have good taste or smell residual from his COVID illness. He was initially diagnosed with COVID on 11/05/2020 postoperatively 2 days after initially having a negative COVID screen 10/29/2020 preoperatively. The patient is over his COVID illness. He had mild interstitial lung problems and mild compromise in his oxygenation, but he resolved this mostly at home. His isolation has been discontinued and he is over his COVID illness. OBJECTIVE: LUNGS: Clear to auscultation. CARDIAC: Rhythm without murmur or gallop. ABDOMEN: Soft. Mild tenderness left upper quadrant. No rebound or guarding. EXTREMITIES: Unremarkable. ASSESSMENT AND PLAN: Recurrent air-fluid level, left upper quadrant. We would recommend transfer for Interventional Radiology to resolve this nonoperatively and further evaluation. I have discussed with our radiologist benefits considering upper GI, but we do not think this would be helpful and most likely this is coming from his gastrojejunostomy. I have discussed with , interventional radiologist in [place] agrees and we do not feel upper GI would be necessary. We will arrange transfer to transfer center. Job ID: [id number]
[2020-11-23 13:17] LABS: BF Color Red; Body Fluid Source Abscess Fluid; Clarity Cloudy/Turbid (Clear); Tube # EDTA
[2020-11-23] MEDS: Fluconazole In NaCl,Iso-Osm 200 MG in Premix Bag 1 BAG IVPB SCH (13:36)
--- NOTE | 2020-11-23 14:17 | RAD ---
Chest one view HISTORY: Central line placement. COMPARISON: 11/18/2020. FINDINGS: Cardiac silhouette is magnified by projection. Pulmonary vasculature are unremarkable. Mediastinum is midline. Tip of a right subclavian central venous catheter projects over the right atr ium. No evidence of pneumothorax. Parenchymal opacity the at each base and blunting of the left lateral costophrenic angle correlate wi th bibasilar atelectasis and left pleural fluid seen on recent CT. IMPRESSION : Right subclavian central venous catheter in good radiographic position.
[2020-11-23 19:57] VITALS: BP 149/91; TEMP 98.8
[2020-11-23] MEDS: Losartan 25 MG TAB PO SCH (20:10)
[2020-11-23] MEDS: Enoxaparin Sodium 40 MG/0.4 ML SYRINGE SC SCH (20:10)
[2020-11-23] MEDS: Nortriptyline HCl 25 MG CAP PO SCH (20:10)
--- NOTE | 2020-11-24 07:21 | OP ---
DATE OF PROCEDURE: 11/23/2020 PREOPERATIVE DIAGNOSES: Intraabdominal abscess, history of bariatric surgery, Frankie-en-Y gastric bypass, cannot rule out gastrojejunal leak in need of parenteral nutrition access and IV access. POSTOPERATIVE DIAGNOSES: Intraabdominal abscess, history of bariatric surgery, Frankie-en-Y gastric bypass, cannot rule out gastrojejunal leak in need of parenteral nutrition access and IV access. PROCEDURE PERFORMED: Right subclavian vein triple-lumen catheter. ANESTHESIA: 1% Xylocaine. DESCRIPTION OF PROCEDURE: With the patient at bedside in his room, his right paraclavicular area was prepared with ChloraPrep and draped in routine fashion. Local anesthetic was infiltrated in the skin and subcutaneous tissue about the operative site. Infraclavicular approach was used to place a right subclavian vein trocar catheter, placed a J-wire, removing the trocar. Seldinger technique used to place the triple-lumen catheter, removing the J-wire, securing the catheter with suture with 3-0 silk. Sterile dressing applied. Each port aspirated blood, flushed with saline solution. The patient tolerated the procedure well. Job ID: [id number]
--- NOTE | 2020-11-24 10:36 | CT ---
CT-guided abdominal hematoma/abscess drainage Conscious sedation: At least 30 minutes spent with the patient for conscious sedation. HISTORY: Postoperative fluid collection left upper quadrant. FINDINGS: After explaining the procedure and answering all questions, limited CT imaging of the abdom en was performed. Sterile technique, buffered local anesthesia, CT guidance, conscious sedation, and a left subxiphoid approach were used to carefully advance a 19-gauge trocar needle into the gas and fluid collection in the left upper quadrant just lateral to the gastric fundus. Position was confirmed with CT. 0.035 Amplatz wire was placed and tract dilated to 8 Nigerien. A locking loop 8 Nigerien catheter was the n carefully inserted without difficulty. Approximately 60 cc dark red blood was aspirated and eventually sent to laboratory for analysis. During the insertion, the patient described no significan t discomfort. As the initial aspiration was performed, patient did report pain. Aspiration was temporarily halted. Catheter was eventually left draining to gravity and secured externally with a dr perdomo. Dr. Davila attended the procedure, with details discussed. Patient tolerated the procedure well and was eventually returned in unchanged condition. IMPRESSION : Technically successful CT-guided left upper quadrant hematoma/abscess drainage. Pathology is pending. Transcribed Date/Time: 11/24/2020 10:36 AM
--- NOTE | 2020-11-24 10:52 | CT ---
CT-guided abdominal abscess drainage Conscious sedation: At least 30 minutes spent with the patient for conscious sedation. Conscious sedation: At least 30 minutes spent with the patient for conscious sedation. HISTORY: Abdominal abscess. Inadvertent removal of previous catheter. FINDINGS: After explaining the procedure and answering all questions, limited CT imaging the upper ab domen was performed. Sterile technique, buffered local anesthesia, CT guidance, conscious sedation, and a left anterior chavez bcostal approach were used to carefully advance the tip of a 19-gauge needle into the large gas and fluid collection immediately to the left of the gastric remnant in the left upper quadrant. Position confirmed with CT. Guidewire was placed. Tract was dilated to 8 Brazilian, and an 8 Brazilian lock ing loop drainage catheter was carefully placed into the fluid collection. Approximately 150 cc of mildly bloody liquid was drained. A portion sent to laboratory. Gas also came from the aspirate. Catheter was left draining to gravity and secured externally with 0 silk suture. IMPRESSION : Technically successful CT-guided drainage left upper quadrant abscess. Transcribed Date/Time: 11/24/2020 10:52 AM
== END 2020-11-23 22:55 | disposition short-term general hospital (02) | DRG 862 ==
LOC: ERS 21:43 → ERHOLD 11-18 02:37 → SURG A 11-18 14:15
PROVIDERS: ADMIT Specialist; ATTEND Specialist
PROC: 0W9G30Z Drainage of Peritoneal Cavity with Drainage Device, Percutaneous Approach (ICD-10-PCS; principal; 2020-11-18)
PROC: 0W9G30Z Drainage of Peritoneal Cavity with Drainage Device, Percutaneous Approach (ICD-10-PCS; 2020-11-23)
PROC: 02H633Z Insertion of Infusion Device into Right Atrium, Percutaneous Approach (ICD-10-PCS; 2020-11-23)
DX: T81.40XA Infection following a procedure, unspecified, initial encounter (principal); K65.1 Peritoneal abscess; Y83.9 Surgical procedure, unspecified as the cause of abnormal reaction of the patient, or of later complication, without mention of misadventure at the time of the procedure; E03.9 Hypothyroidism, unspecified; K21.9 Gastro-esophageal reflux disease without esophagitis; G43.909 Migraine, unspecified, not intractable, without status migrainosus; F41.9 Anxiety disorder, unspecified; F32.9 Major depressive disorder, single episode, unspecified; Z86.16 Personal history of COVID-19; F43.10 Post-traumatic stress disorder, unspecified; Z90.49 Acquired absence of other specified parts of digestive tract; Z98.84 Bariatric surgery status; Z88.6 Allergy status to analgesic agent; Z79.899 Other long term (current) drug therapy; Z79.890 Hormone replacement therapy
CPT/HCPCS: 36415; 49020; 71045; 71275; 74177; 77002; 77012; 80048; 80053; 81001; 81003; 81015; 83605; 83690; 83735; 84100; 85025; 85060; 85610; 85730; 87040; 87070; 87077; 87205; 89051; 93005; 94640; 96365; 96367; 96375; 96376; C1729; C9113; J1450; J1650; J2250; J2270; J2405; J2543; J2550; J3010; J3411; J3480; J3490; J7050; J7620; Q9967; S0028

== ENCOUNTER 2020-11-29 22:12 | Inpatient (IN) | payer BC ==
[2020-11-30 05:51] VITALS: BMI 34.2
[2020-11-30] MEDS ORDERED: Sodium Chloride 0.9% (PF) 10 ML VIAL FS PRN (06:30)
[2020-11-30] MEDS ORDERED: Ondansetron ODT 8 MG TAB SL PRN (06:30)
[2020-11-30] MEDS: Fentanyl 100 MCG/2 ML VIAL SLOW IVP PRN ×5 (06:40→23:50)
[2020-11-30] MEDS: Lactated Ringer's 1,000 ML IV SCH ×2 (06:42→15:07)
[2020-11-30] MEDS: Ketorolac Tromethamine 30 MG/ML VIAL IVP PRN (08:03)
[2020-11-30] MEDS: Fluconazole In NaCl,Iso-Osm 200 MG in Premix Bag 1 BAG IVPB SCH ×2 (08:05→20:15)
[2020-11-30] MEDS: Pantoprazole 40 MG VIAL IVP SCH (08:07)
[2020-11-30] MEDS: Enoxaparin Sodium 40 MG/0.4 ML SYRINGE SC SCH (08:07)
[2020-11-30] MEDS: Piperacillin/Tazobactam 3.375 GM in Sodium Chloride 0.9% 100 ML IVPB SCH ×3 (09:11→20:15)
[2020-11-30] MEDS ORDERED: Heparin 1,000 UNITS/ML VIAL ONE (12:30)
--- NOTE | 2020-11-30 13:44 | HP ---
HISTORY OF PRESENT ILLNESS: Zachary Pimentel is a 39-year-old male patient transferred from [facility] after a procedure. This procedure was performed on November 25 at [facility] by [address]. Kingston. The patient underwent endoscopic suturing of a gastrojejunostomy leak and was hospitalized there over the weekend and transferred back late yesterday evening. The patient had a percutaneous drainage of an abscess, left upper quadrant 11/18/2020, and after this drain became dislodged replaced on 11/23/2020. Cultures revealing Chanell . He has been on Diflucan and Zosyn and in TPN. I have spoken with Dr. Kingston and the hospitalist from [facility] and he has had no untoward problems regarding the procedure performed at that facility and he was transferred here to remain n.p.o. for 7 to 10 days post-endoscopic suturing and maintenance on TPN and hydration, allowing the leak to resolve. Plan at this time is to continue TPN antibiotics. Recheck his fluid collection probably later this week with a CAT scan and then to consider an upper GI and hopefully over the weekend or next week, we can resume his liquids and advance and consider discharge next week. The patient's past history is complicated and that patient underwent on 11/03/2020 laparoscopic Frankie-en-Y gastric bypass performed for morbid obesity; GERD; diabetes mellitus, type 2; hypertension; initially presenting 265 pounds, 38 BMI preoperatively, 250 pounds 36 BMI. The patient did well, was discharged home on 11/04, but returned to the hospital 11/05 complaining of some upper abdominal discomfort, which was minimal, but mostly of malaise, fever, cough, COVID test was positive. He was admitted over the weekend for observation. He remained adequately saturating, although slightly diminished on his pulse oximetry, and his CAT scan obtained postoperatively was normal. He was sent home on 11/07 and readmitted on 11/08, complaining of upper abdominal discomfort, finding on CAT scan, a new blood density collection around the gastric remnant and blood density fluid in the pelvis with a blush on his CAT scan suggestive of an AVM. Interventionalist, radiologist and CV surgeons at [facility] were not comfortable embolizing this thus he was transferred to [facility] where he underwent embolization of the left gastric artery branches resolving the blush and AVM. He was then observed and discharged home and then readmitted by Dr. Davila on 11/18/2020, CAT scan revealing a large fluid collection left upper quadrant for which he underwent a percutaneous drain on 11/18/2020 that became dislodged within 2 days. When I assumed his care on 11/23/2020, the patient's CAT scan was repeated and it was noted that he had a large fluid collection air-fluid level and percutaneous drain was reinserted. This was flushed twice a day. Considering the large nature of the fluid collection, even though the CAT scan did not suggest a gastrojejunal gastric pouch leak, it was felt that most likely he did have one and he was transferred to Dr. Kingston where intervention revealed indeed that he did have a leak and endoscopic suturing performed to resolve this leak with followup upper GI revealing resolution. Recommendations to continue n.p.o. status, TPN support and percutaneous drainage and antibiotics given for least 7 days. We are approaching the 7-day karley tomorrow and I will discuss with Radiology further recommendations, CAT scan with oral contrast and/or upper GI to definitively evaluate this. We will also follow up with the CAT scan, the fluid collection. 5 foot 10, 239 pounds, 34 BMI. PAST MEDICAL HISTORY: PTSD, anxiety, hypertension, GERD. PAST SURGICAL HISTORY: Laparoscopic gastric bypass, COVID illness postoperatively. Interventional Radiology at [facility], AVM, percutaneous drainage of left upper quadrant abscess, endoscopic suturing Dr. Kingsotn, dates noted above. Past history of cholecystectomy. MEDICATIONS: 1. Clonazepam. 2. Cialis. 3. Inderal. 4. Potassium. 5. Levothyroxine. 6. Hydrocodone. 7. Vitamin D. 8. Dexilant. ALLERGIES: MORPHINE. SOCIAL HISTORY: Tobacco, none. Alcohol, none. Medications as above. REVIEW OF SYSTEMS: Otherwise, noncontributory. PHYSICAL EXAMINATION: VITAL SIGNS: Height 5 foot 10 inch, 239 pounds 34 BMI. 98.2, 65, 130/83. HEAD, EARS, EYES, NOSE AND THROAT: Unremarkable. LUNGS: Clear to auscultation. CARDIAC: Rhythm without murmur or gallop. ABDOMEN: Soft, nontender. Laparoscopic wounds well healed. Percutaneous drain, subxiphoid, clear drainage. EXTREMITIES: Unremarkable. LABORATORY DATA: Laboratories from [facility] reveal his hemoglobin to be 12. White count is normal. Basic metabolic profile normal yesterday. PT/INR normal. ASSESSMENT/PLAN: Morbid obesity, gastroesophageal reflux disease, post-traumatic stress disorder, status post laparoscopic gastric bypass, followed by COVID illness followed by embolization of AVM and noted gastric remnant followed by percutaneous drainage of left upper quadrant abscess followed by endoscopic suturing of gastric pouch leak with plans as above. Job ID: [id number]
[2020-11-30] MEDS ORDERED: Dextrose 50% Abboject 50 ML SYRINGE SLOW IVP PRN (16:49)
[2020-11-30] MEDS ORDERED: Dextrose 5% in Water 1,000 ML IV PRN (16:49)
[2020-11-30] MEDS ORDERED: Melatonin 3 MG TAB PO PRN (18:17)
[2020-11-30] MEDS: Methocarbamol 500 MG TAB PO SCH ×2 (18:44→20:14)
[2020-11-30] MEDS: Nortriptyline HCl 25 MG CAP PO SCH (20:14)
[2020-11-30] MEDS: Propranolol 40 MG TAB PO SCH (20:14)
[2020-11-30] MEDS: clonazePAM 1 MG TAB PO SCH (20:18)
[2020-12-01] MEDS: Piperacillin/Tazobactam 3.375 GM in Sodium Chloride 0.9% 100 ML IVPB SCH ×4 (01:13→20:04)
[2020-12-01] MEDS: Ketorolac Tromethamine 30 MG/ML VIAL IVP PRN ×2 (02:17→20:25)
[2020-12-01] MEDS: Levothyroxine 150 MCG TAB PO SCH (05:40)
[2020-12-01 06:34] LABS: #Eosinphils 0.2 thou/uL (0.0-0.7); #Lymphocytes 1.8 thou/uL (1.20-3.40); #Monocytes 0.8 thou/uL (0.11-0.59); #Neutrophils 5.2 thou/uL (1.40-6.50); %Basophils 0.3 % (0.0-1.0); %Lymphocytes 22.8 % (21.0-51.0); %Monocytes 9.5 % (0.0-10.0); %Neutrophils 64.5 % (42.0-75.0); Mean Corpuscular HGB CONC 34.2 g/dL (32.0-36.0); Mean Corpuscular Hemoglobin 30.9 pg (27.0-31.0); Mean Corpuscular Volume 90.4 fL (78.0-98.0); Mean Platelet Volume 8.3 fL (7.4-10.4); Platelet Count 338 thou/uL (130-400); RBC Distribution Width 13.9 % (11.5-14.5); Red Blood Cell (RBC) Count 4.21 mill/uL (4.70-6.10); White Blood Cell (WBC) Count 8.1 thou/uL (4.8-10.8)
[2020-12-01 06:36] LABS: ALT (SGPT) 53 U/L (8-55); AST (SGOT) 34 U/L (5-34); Albumin 2.9 g/dL (3.5-5.0); Alkaline Phosphatase 83 U/L (40-110); Anion Gap 16 mmol/L (10-20); BUN (Urea Nitrogen) 6 mg/dL (8.9-20.6); Bilirubin, Total 0.8 mg/dL (0.2-1.2); Calc. Creatinine Clearance 155 mL/min (70-130); Calcium 8.2 mg/dL (7.8-10.44); Carbon Dioxide 23 mmol/L (22-29); Chloride 105 mmol/L (98-107); Globulin 3.3 g/dL (2.4-3.5); Glucose 98 mg/dL (70-105); Magnesium 1.8 mg/dL (1.6-2.6); Phosphorus 4.6 mg/dL (2.3-4.7); Potassium 3.6 mmol/L (3.5-5.1); Protein, Total 6.2 g/dL (6.0-8.3); Sodium 140 mmol/L (136-145)
[2020-12-01] MEDS: Methocarbamol 500 MG TAB PO SCH ×4 (09:24→20:04)
[2020-12-01] MEDS: Enoxaparin Sodium 40 MG/0.4 ML SYRINGE SC SCH (09:24)
[2020-12-01] MEDS: Propranolol 40 MG TAB PO SCH ×3 (09:24→20:04)
[2020-12-01] MEDS: Pantoprazole 40 MG VIAL IVP SCH (09:25)
[2020-12-01] MEDS: Fluconazole In NaCl,Iso-Osm 200 MG in Premix Bag 1 BAG IVPB SCH ×2 (09:25→20:05)
--- NOTE | 2020-12-01 15:32 | PRG ---
DATE OF SERVICE: SUBJECTIVE: Mr. Pimentel is doing well. His abdomen feels better. He is having very little pain and no discomfort at all. OBJECTIVE: VITAL SIGNS: Temperature 98.8 degrees, pulse 62, blood pressure 126/83. LUNGS: Clear to auscultation. CARDIAC: Regular rate and rhythm without murmur or gallop. ABDOMEN: Soft and nontender. EXTREMITIES: Unremarkable. His drain is in upper abdomen, has drained out 20 mL in the last 24 hours. Urine output is good. ASSESSMENT AND PLAN: Doing well after endoscopic endosuturing of gastrojejunostomy leak. CORBIN drain has put out very little. Plan at this time is to repeat his CAT scan upper abdomen. I have discussed with Dr. Gonzalez Torres, Radiology. Plan would be for him to have a CAT scan prior and then a followup CAT scan with limited oral contrast to evaluate for any ongoing leak and to evaluate resolution of the fluid collection in the left upper quadrant. We will plan this Sunday morning. Job ID: [id number]
[2020-12-01] MEDS: Nortriptyline HCl 25 MG CAP PO SCH (20:04)
[2020-12-01] MEDS: Fentanyl 100 MCG/2 ML VIAL SLOW IVP PRN (20:26)
[2020-12-01] MEDS ORDERED: POTASSIUM ACETATE IV SCH ×2 (22:00→23:59)
[2020-12-01] MEDS ORDERED: [UNRECOGNIZED DRUG - OTHER] IV SCH (22:00)
[2020-12-01] MEDS ORDERED: SODIUM ACETATE IV SCH ×2 (22:00→23:59)
[2020-12-01] MEDS ORDERED: CALCIUM CHLORIDE IV SCH (22:00)
[2020-12-01 22:46] LABS: INR-International Normal Ratio 1.1; PTT 42.9 sec (22.9-36.1); Prothrombin Time 14.1 sec (12.0-14.7)
[2020-12-01 22:50] LABS: Cardiac Risk 9.4 (Less than 4.5); Magnesium 1.8 mg/dL (1.6-2.6)
[2020-12-01 22:53] LABS: ALT (SGPT) 55 U/L (8-55); AST (SGOT) 34 U/L (5-34); Alkaline Phosphatase 87 U/L (40-110); Anion Gap 16 mmol/L (10-20); BUN (Urea Nitrogen) 6 mg/dL (8.9-20.6); Calc. Creatinine Clearance 155 mL/min (70-130); Calcium 8.4 mg/dL (7.8-10.44); Carbon Dioxide 22 mmol/L (22-29); Chloride 106 mmol/L (98-107); Globulin 3.5 g/dL (2.4-3.5); Glucose 88 mg/dL (70-105); Phosphorus 3.3 mg/dL (2.3-4.7); Potassium 3.8 mmol/L (3.5-5.1); Protein, Total 6.5 g/dL (6.0-8.3); Sodium 140 mmol/L (136-145)
[2020-12-01] MEDS: clonazePAM 1 MG TAB PO SCH (23:21)
[2020-12-01] MEDS ORDERED: CALCIUM GLUCONATE IV SCH (23:59)
[2020-12-01] MEDS ORDERED: [UNRECOGNIZED DRUG - OTHER] IV SCH (23:59)
[2020-12-02] MEDS: Fentanyl 100 MCG/2 ML VIAL SLOW IVP PRN ×4 (00:33→22:10)
[2020-12-02] MEDS: Piperacillin/Tazobactam 3.375 GM in Sodium Chloride 0.9% 100 ML IVPB SCH ×3 (02:40→13:09)
[2020-12-02] MEDS: Levothyroxine 150 MCG TAB PO SCH (04:49)
[2020-12-02 06:04] LABS: ALT (SGPT) 52 U/L (8-55); AST (SGOT) 33 U/L (5-34); Albumin 2.9 g/dL (3.5-5.0); Alkaline Phosphatase 83 U/L (40-110); Anion Gap 14 mmol/L (10-20); BUN (Urea Nitrogen) 6 mg/dL (8.9-20.6); Bilirubin, Total 0.8 mg/dL (0.2-1.2); Calc. Creatinine Clearance 151 mL/min (70-130); Calcium 8.4 mg/dL (7.8-10.44); Carbon Dioxide 25 mmol/L (22-29); Cardiac Risk 10.3 (Less than 4.5); Chloride 106 mmol/L (98-107); Cholesterol 175 mg/dl (< 200 Desired); Globulin 3.3 g/dL (2.4-3.5); Glucose 121 mg/dL (70-105); HDL Cholesterol 17 mg/dL (>60 Neg Risk); LDL Cholesterol, Calculated 124 mg/dL; Magnesium 1.9 mg/dL (1.6-2.6); Phosphorus 4.4 mg/dL (2.3-4.7); Potassium 3.5 mmol/L (3.5-5.1); Protein, Total 6.2 g/dL (6.0-8.3); Sodium 141 mmol/L (136-145); Triglycerides 169 mg/dL (Less than 150)
[2020-12-02] MEDS: Ketorolac Tromethamine 30 MG/ML VIAL IVP PRN ×3 (06:04→22:10)
[2020-12-02 06:11] LABS: INR-International Normal Ratio 1.1; PTT 43.1 sec (22.9-36.1); Prothrombin Time 14.1 sec (12.0-14.7)
[2020-12-02] MEDS: Fluconazole In NaCl,Iso-Osm 200 MG in Premix Bag 1 BAG IVPB SCH ×2 (09:48→21:07)
[2020-12-02] MEDS: Enoxaparin Sodium 40 MG/0.4 ML SYRINGE SC SCH (09:48)
[2020-12-02] MEDS: Pantoprazole 40 MG VIAL IVP SCH (09:49)
[2020-12-02] MEDS: Methocarbamol 500 MG TAB PO SCH ×4 (10:06→21:08)
[2020-12-02] MEDS: Propranolol 40 MG TAB PO SCH ×3 (10:06→21:07)
[2020-12-02] MEDS: Ondansetron PF 4 MG/2 ML Vial IVP PRN (12:26)
[2020-12-02 19:06] LABS: Bacteria/HPF None Seen HPF (None Seen); Bilirubin Negative (Negative); Blood, Urine Negative (Negative); Clarity Clear (Clear); Glucose, Urine (Dipstick) Normal (Negative); Ketone, Urine Negative (Negative); Leukocyte Negative Leu/uL (Negative); Nitrite Negative (Negative); Protein, Urine (Dipstick) Negative (Neg-Trace); RBC/HPF 0-3 HPF (0-3); Specific Gravity, Urine 1.009 (1.002-1.036); Squamous Epithelial 0-3 HPF (0-3); Urobilinogen Normal mg/dL (Less than 2); WBC/HPF 0-3 HPF (0-3)
--- NOTE | 2020-12-02 19:23 | PRG ---
DATE OF SERVICE: 12/02/2020 SUBJECTIVE: Zachary Pimentel is doing well today. He has some complaints of reflux, but overall is doing well. OBJECTIVE: VITAL SIGNS: Temperature 97.6 degrees, 65, 125/66. LUNGS: Clear to auscultation. CARDIAC: Regular rate and rhythm. No murmur or gallop. ABDOMEN: Soft, nontender. Drain, left upper quadrant fluid collection. Peritoneal abscess has drained 30 mL over the last 24 hours. Cultures have revealed a presumptive Chanell albicans and and Streptococcus previously. I received a call from [facility] where he was briefly hospitalized where they recultured the drainage output and revealed E. coli resistant to Zosyn. ASSESSMENT/PLAN: 1. Zosyn and Diflucan for left upper quadrant abscess, antibiotic evaluation review per Dr. Yeung as [facility] has suggested the drainage was Escherichia coli resistant to Zosyn when it was re-cultured. I will change it to meropenem until Dr. Yeung sees him, at which time, this may be changed. Tomorrow, he has CAT scan of the abdomen and pelvis p.o. contrast to evaluate both the gastrojejunal anastomotic leak, enteric endoscopic closure by Dr. Kingston a week ago and to follow up the fluid collection left upper quadrant. Assessment of the drainage bag reveals that there is no accumulation of air and the fluid is clear with some inflammatory fibrin. The patient was complaining of some dysuria and UA obtained, results pending. Hopefully, we will be able to start liquids later tomorrow orally. Job ID: [id number]
[2020-12-02] MEDS: Nortriptyline HCl 25 MG CAP PO SCH (21:08)
[2020-12-02] MEDS: clonazePAM 1 MG TAB PO SCH (21:08)
[2020-12-02] MEDS: [UNRECOGNIZED DRUG - OTHER] IV SCH (22:11)
[2020-12-02] MEDS: SODIUM ACETATE IV SCH (22:11)
[2020-12-02] MEDS: CALCIUM GLUCONATE IV SCH (22:11)
[2020-12-02] MEDS: POTASSIUM ACETATE IV SCH (22:11)
[2020-12-02] MEDS: Meropenem 2 GM in Sodium Chloride 0.9% 100 ML IVPB SCH (22:11)
[2020-12-02] MEDS: Lactated Ringer's 1,000 ML IV SCH (22:27)
[2020-12-03 04:52] LABS: PTT 44.2 sec (22.9-36.1); Prothrombin Time 13.7 sec (12.0-14.7)
[2020-12-03 05:24] LABS: ALT (SGPT) 48 U/L (8-55); AST (SGOT) 26 U/L (5-34); Albumin 3.1 g/dL (3.5-5.0); Alkaline Phosphatase 85 U/L (40-110); Anion Gap 13 mmol/L (10-20); BUN (Urea Nitrogen) 10 mg/dL (8.9-20.6); Bilirubin, Total 0.6 mg/dL (0.2-1.2); Calc. Creatinine Clearance 164 mL/min (70-130); Calcium 8.6 mg/dL (7.8-10.44); Carbon Dioxide 26 mmol/L (22-29); Cardiac Risk 10.7 (Less than 4.5); Chloride 106 mmol/L (98-107); Cholesterol 182 mg/dl (< 200 Desired); Globulin 3.5 g/dL (2.4-3.5); Glucose 129 mg/dL (70-105); HDL Cholesterol 17 mg/dL (>60 Neg Risk); LDL Cholesterol, Calculated 124 mg/dL; Magnesium 2.1 mg/dL (1.6-2.6); Phosphorus 5.1 mg/dL (2.3-4.7); Potassium 3.8 mmol/L (3.5-5.1); Protein, Total 6.6 g/dL (6.0-8.3); Sodium 141 mmol/L (136-145); Triglycerides 203 mg/dL (Less than 150)
[2020-12-03] MEDS: Levothyroxine 150 MCG TAB PO SCH (06:05)
[2020-12-03] MEDS: Meropenem 2 GM in Sodium Chloride 0.9% 100 ML IVPB SCH ×3 (06:05→23:23)
--- NOTE | 2020-12-03 07:58 | CON ---
DATE OF CONSULTATION: 12/02/2020 REASON FOR CONSULTATION: Leak at the gastrojejunal anastomosis with infection by resistant pathogen. HISTORY OF PRESENT ILLNESS: 39-year-old whom I had seen recently. At that time, he presented with a history of obesity, hypothyroidism, who had a laparoscopic Frankie-en-Y gastric bypass, was discharged and then he developed fever. CT did not show any leak. There was no other inflammatory process. He had a SARS-CoV-2 RT-PCR positive on November 05, the previous one had been negative, so when I saw him, he was at 4 days' duration of illness and so he was kept there and followed. On November 07, he was having a benign course of his COVID, still on room air, so no specific intervention was advised for COVID. He was discharged and then returned to the hospital on the or with abdominal pain and nausea and vomiting and so he had a CT scan on November 17, which showed a small amount of hyperdense fluid in the pelvis suspicious for leak. Has a collection next to the stomach. Dr. Davila had evaluated the patient after this admission. He had a percutaneous drainage done and was felt to represent an infected hematoma. Cultures revealed Strep anginosus, Haemophilus parainfluenza, and Chanell albicans. He had antimicrobial therapy of Diflucan added on November 21. He was progressed on liquids. At that moment, he was on Zosyn and Diflucan. On November 22, Dr. Fox took over, so he had another procedure to replace the tube that was accidentally removed from the percutaneous drainage. On November 23, he had recurrence of air-fluid levels, left upper quadrants, so he was transferred to Dr. Montejo in [facility]'s and Dr. Montejo did a procedure with suturing of the leak and that was a gastrojejunostomy leak. The CORBIN drain was putting out very little and so is planned for a repeat CT. Currently, Mr. Pimentel is in no acute distress. He denies any respiratory symptoms. No abdominal pain. No genitourinary symptoms. No joint symptoms. PAST MEDICAL HISTORY: Obesity, hypothyroidism, GERD, recent COVID-19, gastric bypass for obesity management and the complications above noted. SOCIAL HISTORY: Drinks occasionally. Never smoker. ALLERGIES: MORPHINE. FAMILY HISTORY: Noncontributory. CURRENT MEDICATIONS: 1. Klonopin. 2. Lovenox. 3. Sublimaze. 4. Glucagon. 5. Insulin. 6. Toradol. 7. Synthroid. 8. Melatonin. 9. Robaxin. 10. Pamelor. 11. Zofran. He is on TPN. PHYSICAL EXAMINATION: VITAL SIGNS: Essentially normal. Saturating 94% on room air. GENERAL: Awake, alert, oriented. HEENT: Ocular movements conjugate. NECK: No jugular vein distention. LUNGS: Symmetric clear breath sounds. HEART: S1-S2. Regular rate. ABDOMEN: Soft. Mild tenderness in left side. MUSCULOSKELETAL: No joint inflammatory activity. No edema. Pulses 1+ in dorsalis pedis. He moves all extremities equally. LABORATORY DATA: White cell count 8.1, hemoglobin 13, platelets 338 with normal differential. Creatinine 1.0. Liver profile normal. Albumin 2.9. Sample from the abdominal abscess drainage from November 23 showed Chanell albicans, abiotrophia, Veillonella, anaerobes. The sample from [facility] yielded E. coli with ESBL phenotype among other organisms. ASSESSMENT AND DISCUSSION: Obesity, hypothyroidism, SARS-CoV-2 infection with moderate presentation and course. He is now way past the infectivity period, so I would consider him as having recovered from it. Any how, now he is having these issues with the leakage at the gastrojejunostomy and has had the surgical procedure endoscopically and assuming that there has been source control, we will switch him to meropenem in a few more days and hopefully we can discontinue the antimicrobial therapy. Evidently, those processes sometimes may require reintervention and it is always hard at this stage of the game to be totally sure that there has been proper source control, as that makes it difficult to precisely determine when to stop antimicrobial therapy. Job ID: [id number] [facility]
[2020-12-03] MEDS: Fentanyl 100 MCG/2 ML VIAL SLOW IVP PRN ×2 (08:26→18:40)
[2020-12-03] MEDS: Fluconazole In NaCl,Iso-Osm 200 MG in Premix Bag 1 BAG IVPB SCH ×2 (08:28→20:04)
[2020-12-03] MEDS: Enoxaparin Sodium 40 MG/0.4 ML SYRINGE SC SCH (08:30)
[2020-12-03] MEDS: Pantoprazole 40 MG VIAL IVP SCH (08:31)
[2020-12-03] MEDS: Methocarbamol 500 MG TAB PO SCH ×3 (08:31→18:04)
[2020-12-03] MEDS: Propranolol 40 MG TAB PO SCH ×3 (08:31→20:15)
--- NOTE | 2020-12-03 11:35 | CT ---
CT abdomen with IV and oral contrast HISTORY: Left upper quadrant drainage. Follow-up. COMPARISON: 11/22/2020. FINDINGS: Exam was performed shortly after ingestion of a relatively small amount of iodine-based ora l contrast. Some residual contrast is present within the colon from the prior exams. Small amount of left pleural fluid and atelectasis at the left lung base again demonstrated. Postoperative changes of the upper abdomen consistent with prior Frankie-en-Y bypass. Percutaneous drain with a coil in the gas/fluid collection in the upper abdomen immediately lateral t o the gastric remnant in place. The gas/fluid collection is now 5.5 cm depth by 2.8 cm width, significantly smaller than on the prior exam. In addition to the radiopaque sutures and hemostasis clips on the prior exam, there is a faint, ill-d efined 1.5 cm blush of hyperdensity at the deep portion of the cavity, where it abuts the gastric pouch and where the leak has been confirmed in the past. IMPRESSION : Near complete interval resolution of the left upper quadrant fluid/gas cavity evacuated by the percut aneous drain that remains in good position. Small leak from the gastric pouch to the posterior margin of the cavity persists. Left pleural fluid and basilar atelectasis unchanged in appearance.
--- NOTE | 2020-12-03 16:21 | SPC ---
Left upper extremity PICC placement sonographic guided HISTORY: Abdominal abscess. Need for antibiotics and TPN. FINDINGS: After explaining the procedure and answering all questions, the left upper extremity was pr epped and draped in usual sterile fashion. Sterile technique, buffered local anesthesia, sonographic guidance, and a 22-gauge needle were used to carefully access the left basilic vein. Standard technique was used to place the tip of a 5 Azeri single lumen PICC so that the tip lies at the level of the right atrium. Catheter was flushed and secured externally. Patient tolerated the procedure well and was returned in unchanged condition. IMPRESSION : Left upper extremity PICC is ready for use.
[2020-12-03] MEDS: Ketorolac Tromethamine 30 MG/ML VIAL IVP PRN (18:39)
[2020-12-03] MEDS: Nortriptyline HCl 25 MG CAP PO SCH (20:14)
[2020-12-03] MEDS: clonazePAM 1 MG TAB PO SCH (20:14)
--- NOTE | 2020-12-03 20:22 | PRG ---
DATE OF SERVICE: SUBJECTIVE: Mr. Pimentel did complain of malaise and subjective body aches today. His central line was placed on 11/24/2020. He remains afebrile, 97.9 degrees; 64; 121/85. Labs last checked on December 01, hemoglobin 13, white count 8. Basic metabolic profile today is normal. OBJECTIVE: LUNGS: Clear to auscultation. CARDIAC: Regular rate and rhythm without murmur or gallop. ABDOMEN: Soft, nontender. Surgical wounds well healed. Percutaneous CT-guided drain, clear in nature, 70 mL in the last 24 hours. They are irrigating it twice a day with 10 mL of saline. The patient underwent a CAT scan of the abdomen and pelvis today with contrast administered on the table. This was reviewed with Dr. Torres. This revealed a very small leak, but the fluid collection in left upper quadrant had almost completely disappeared. ASSESSMENT AND PLAN: Gastrojejunal anastomotic leak, evidence that this may be still present after endoscopic suturing. At this point, would treat this with continued percutaneous drainage, n.p.o. status, and TPN for nourishment. I have discussed that with the patient. Today, his central line was removed and a PICC line inserted. Cultures from [facility] revealed Zosyn resistant E. coli. These cultures were obtained from the drainage bag. The patient's antibiotics changed from Zosyn to meropenem for now. Sensitivities at [facility] revealed sensitivities to meropenem. His antibiotics should be able to be discontinued soon as clinically there is no active infection. Cultures at our institute from placement of the drain revealed Chanell, Veillonella, and Streptococcus. Blood cultures at all times have been negative. I have talked to case liner regarding arrangements for home TPN. At this point, he may not need antibiotic therapy at home but only TPN infusion. Job ID: [id number]
[2020-12-03] MEDS: [UNRECOGNIZED DRUG - OTHER] IV SCH (23:04)
[2020-12-03] MEDS: SODIUM ACETATE IV SCH (23:04)
[2020-12-03] MEDS: CALCIUM GLUCONATE IV SCH (23:04)
[2020-12-03] MEDS: POTASSIUM ACETATE IV SCH (23:04)
[2020-12-03] MEDS: Lactated Ringer's 1,000 ML IV SCH (23:05)
[2020-12-04] MEDS: Fentanyl 100 MCG/2 ML VIAL SLOW IVP PRN ×3 (00:57→22:20)
[2020-12-04] MEDS: Levothyroxine 150 MCG TAB PO SCH (05:40)
[2020-12-04] MEDS: Meropenem 2 GM in Sodium Chloride 0.9% 100 ML IVPB SCH ×3 (06:27→22:32)
[2020-12-04 06:49] LABS: INR-International Normal Ratio 1.1; PTT 41.7 sec (22.9-36.1); Prothrombin Time 14.1 sec (12.0-14.7)
[2020-12-04 07:16] LABS: ALT (SGPT) 45 U/L (8-55); AST (SGOT) 28 U/L (5-34); Albumin 3.1 g/dL (3.5-5.0); Alkaline Phosphatase 82 U/L (40-110); Anion Gap 15 mmol/L (10-20); BUN (Urea Nitrogen) 11 mg/dL (8.9-20.6); Bilirubin, Total 0.7 mg/dL (0.2-1.2); Calc. Creatinine Clearance 160 mL/min (70-130); Calcium 8.8 mg/dL (7.8-10.44); Carbon Dioxide 24 mmol/L (22-29); Cardiac Risk 11.2 (Less than 4.5); Chloride 104 mmol/L (98-107); Cholesterol 179 mg/dl (< 200 Desired); Globulin 3.5 g/dL (2.4-3.5); Glucose 90 mg/dL (70-105); HDL Cholesterol 16 mg/dL (>60 Neg Risk); LDL Cholesterol, Calculated 119 mg/dL; Magnesium 1.9 mg/dL (1.6-2.6); Phosphorus 4.3 mg/dL (2.3-4.7); Potassium 4.3 mmol/L (3.5-5.1); Protein, Total 6.6 g/dL (6.0-8.3); Sodium 139 mmol/L (136-145); Triglycerides 221 mg/dL (Less than 150)
[2020-12-04] MEDS: Fluconazole In NaCl,Iso-Osm 200 MG in Premix Bag 1 BAG IVPB SCH ×2 (07:33→19:43)
[2020-12-04] MEDS: Propranolol 40 MG TAB PO SCH ×3 (07:34→22:35)
[2020-12-04] MEDS: Pantoprazole 40 MG VIAL IVP SCH (07:34)
[2020-12-04] MEDS: Enoxaparin Sodium 40 MG/0.4 ML SYRINGE SC SCH (07:34)
--- NOTE | 2020-12-04 12:33 | PDOC.BPN ---
- Brief Progress Note Encounter Date: 12/04/20 Encounter Time: 12:31 No acute events overnight. Denies nausea or vomiting. Reports symptoms of depression EXAM: VS: T 98.2 HR 61 BP 111/75 RR 16 General: Alert and oriented, no acute distress, resting comfortably Pulmonary: No dyspnea or difficulty breathing Abdomen: Soft, non-distended, incisions clean, drains in place with seropurulent output CV: Regular rate and rhythm, palpable distal pulses Extremities: No edema I/O: N.p.o. oral intake 1200 UOP Drain 50 cc LABORATORY / IMAGING: Laboratory analysis reviewed from December 01. Stable white blood cell count of 8.1 and hemoglobin 13 PLAN: Continue n.p.o. with TPN. Home TPN pending Continue antibiotics Out of bed to chair/out of bed and ambulate [ ]
[2020-12-04] MEDS: Ketorolac Tromethamine 30 MG/ML VIAL IVP PRN ×2 (14:51→22:25)
[2020-12-04] MEDS: Nortriptyline HCl 25 MG CAP PO SCH (22:33)
[2020-12-04] MEDS: clonazePAM 1 MG TAB PO SCH (22:35)
[2020-12-04] MEDS ORDERED: CALCIUM GLUCONATE IV SCH ×2 (23:15→23:30)
[2020-12-04] MEDS ORDERED: [UNRECOGNIZED DRUG - OTHER] IV SCH ×2 (23:15→23:30)
[2020-12-04] MEDS ORDERED: SODIUM ACETATE IV SCH ×2 (23:15→23:30)
[2020-12-04] MEDS ORDERED: POTASSIUM ACETATE IV SCH ×2 (23:15→23:30)
[2020-12-04] MEDS: [UNRECOGNIZED DRUG - OTHER] IV SCH (23:34)
[2020-12-04] MEDS: SODIUM ACETATE IV SCH (23:34)
[2020-12-04] MEDS: POTASSIUM ACETATE IV SCH (23:34)
[2020-12-04] MEDS: CALCIUM GLUCONATE IV SCH (23:34)
[2020-12-05] MEDS: Fentanyl 100 MCG/2 ML VIAL SLOW IVP PRN ×4 (06:45→23:03)
[2020-12-05] MEDS: Meropenem 2 GM in Sodium Chloride 0.9% 100 ML IVPB SCH ×3 (06:48→21:51)
[2020-12-05] MEDS: Levothyroxine 150 MCG TAB PO SCH (06:51)
[2020-12-05 07:29] LABS: Prothrombin Time 13.3 sec (12.0-14.7)
[2020-12-05 07:30] LABS: PTT 45.9 sec (22.9-36.1)
[2020-12-05 07:32] LABS: ALT (SGPT) 54 U/L (8-55); AST (SGOT) 42 U/L (5-34); Albumin 3.2 g/dL (3.5-5.0); Alkaline Phosphatase 92 U/L (40-110); Anion Gap 15 mmol/L (10-20); BUN (Urea Nitrogen) 16 mg/dL (8.9-20.6); Calc. Creatinine Clearance 134 mL/min (70-130); Carbon Dioxide 23 mmol/L (22-29); Cardiac Risk 10.8 (Less than 4.5); Chloride 104 mmol/L (98-107); Cholesterol 184 mg/dl (< 200 Desired); Globulin 3.8 g/dL (2.4-3.5); Glucose 99 mg/dL (70-105); HDL Cholesterol 17 mg/dL (>60 Neg Risk); LDL Cholesterol, Calculated 124 mg/dL; Magnesium 2.2 mg/dL (1.6-2.6); Phosphorus 4.2 mg/dL (2.3-4.7); Potassium 4.8 mmol/L (3.5-5.1); Sodium 137 mmol/L (136-145); Triglycerides 216 mg/dL (Less than 150)
--- NOTE | 2020-12-05 07:36 | PDOC.BPN ---
- Brief Progress Note Encounter Date: 12/05/20 Encounter Time: 07:35 No acute events overnight. No acute complaints EXAM: VS: T 97.4 HR 64 BP 110/76 RR 16 General: Alert and oriented, no acute distress, resting comfortably Pulmonary: No dyspnea or difficulty breathing Abdomen: Soft, non-distended, incisions clean, drain in place CV: Regular rate and rhythm, palpable distal pulses Extremities: No edema I/O: N.p.o. oral intake Multiple voids UOP Drain 10 cc LABORATORY / IMAGING: BMP reviewed and is grossly normal PLAN: PLAN: Continue n.p.o. with TPN. Home TPN pending Continue antibiotics Out of bed to chair/out of bed and ambulate
[2020-12-05] MEDS: Fluconazole In NaCl,Iso-Osm 200 MG in Premix Bag 1 BAG IVPB SCH ×2 (08:52→20:16)
[2020-12-05] MEDS: Enoxaparin Sodium 40 MG/0.4 ML SYRINGE SC SCH (08:54)
[2020-12-05] MEDS: Propranolol 40 MG TAB PO SCH ×4 (08:54→20:20)
[2020-12-05] MEDS: Pantoprazole 40 MG VIAL IVP SCH (08:54)
[2020-12-05] MEDS: Nortriptyline HCl 25 MG CAP PO SCH (20:20)
[2020-12-05] MEDS: clonazePAM 1 MG TAB PO SCH (20:20)
[2020-12-05] MEDS ORDERED: SODIUM ACETATE IV SCH (22:00)
[2020-12-05] MEDS ORDERED: POTASSIUM ACETATE IV SCH ×2 (22:00→23:00)
[2020-12-05] MEDS ORDERED: CALCIUM GLUCONATE IV SCH ×2 (22:00→23:00)
[2020-12-05] MEDS ORDERED: [UNRECOGNIZED DRUG - OTHER] IV SCH (22:00)
[2020-12-05] MEDS ORDERED: [UNRECOGNIZED DRUG - OTHER] IV SCH (23:00)
[2020-12-06] MEDS: Fentanyl 100 MCG/2 ML VIAL SLOW IVP PRN ×5 (05:28→22:18)
[2020-12-06] MEDS: Levothyroxine 150 MCG TAB PO SCH (05:29)
[2020-12-06] MEDS: Meropenem 2 GM in Sodium Chloride 0.9% 100 ML IVPB SCH ×3 (06:16→22:43)
[2020-12-06 07:07] LABS: ALT (SGPT) 67 U/L (8-55); AST (SGOT) 44 U/L (5-34); Albumin 3.5 g/dL (3.5-5.0); Alkaline Phosphatase 106 U/L (40-110); Anion Gap 15 mmol/L (10-20); BUN (Urea Nitrogen) 17 mg/dL (8.9-20.6); Bilirubin, Total 1.1 mg/dL (0.2-1.2); Calc. Creatinine Clearance 130 mL/min (70-130); Calcium 9.3 mg/dL (7.8-10.44); Carbon Dioxide 23 mmol/L (22-29); Cardiac Risk 10.4 (Less than 4.5); Chloride 105 mmol/L (98-107); Cholesterol 188 mg/dl (< 200 Desired); Globulin 4.1 g/dL (2.4-3.5); Glucose 103 mg/dL (70-105); HDL Cholesterol 18 mg/dL (>60 Neg Risk); LDL Cholesterol, Calculated 125 mg/dL; Magnesium 2.3 mg/dL (1.6-2.6); Phosphorus 4.2 mg/dL (2.3-4.7); Potassium 4.7 mmol/L (3.5-5.1); Protein, Total 7.6 g/dL (6.0-8.3); Sodium 138 mmol/L (136-145); Triglycerides 224 mg/dL (Less than 150)
[2020-12-06 08:47] LABS: INR-International Normal Ratio 1.1; PTT 47.6 sec (22.9-36.1); Prothrombin Time 13.9 sec (12.0-14.7)
[2020-12-06] MEDS: Fluconazole In NaCl,Iso-Osm 200 MG in Premix Bag 1 BAG IVPB SCH ×2 (10:15→20:08)
[2020-12-06] MEDS: Pantoprazole 40 MG VIAL IVP SCH (10:15)
[2020-12-06] MEDS: Enoxaparin Sodium 40 MG/0.4 ML SYRINGE SC SCH (10:15)
[2020-12-06] MEDS: Propranolol 40 MG TAB PO SCH ×3 (10:16→20:15)
--- NOTE | 2020-12-06 17:16 | PRG ---
DATE OF SERVICE: 12/06/2020 SUBJECTIVE: Zachary Pimentel is doing well today. He is status post 11/03/2020 laparoscopic Frankie-en-Y gastric bypass and 11/23/2020 right subclavian vein triple-lumen catheter. He has a gastrojejunal leak without sepsis with percutaneous drain left upper quadrant last 24 hours draining 48 mL. Urine output is copious. He is on TPN and bowel rest. Overall, he is doing well. OBJECTIVE: VITAL SIGNS: Temperature 98 degrees, heart rate 102, and blood pressure 120/77. LUNGS: Clear to auscultation. CARDIAC: Regular rate and rhythm without murmur or gallop. ABDOMEN: Soft and nontender. No masses. Laparoscopic wounds well healed. ASSESSMENT AND PLAN: At this point, he is doing well and recommended to continue TPN. We are arranging TPN to be administered via his peripherally inserted central catheter line. We will run this for 12 hours and 12 hours without TPN. He will be on bowel rest, otherwise. We will restudy a CT scan of abdomen next week with contrast to evaluate resumption diet. Job ID: [id number]
[2020-12-06] MEDS: clonazePAM 1 MG TAB PO SCH (20:08)
[2020-12-06] MEDS: Nortriptyline HCl 25 MG CAP PO SCH (20:15)
[2020-12-06] MEDS: SODIUM ACETATE IV SCH (22:43)
[2020-12-06] MEDS: CALCIUM GLUCONATE IV SCH (22:43)
[2020-12-06] MEDS: POTASSIUM CHLORIDE IV SCH (22:43)
[2020-12-06] MEDS: [UNRECOGNIZED DRUG - OTHER] IV SCH (22:43)
[2020-12-07] MEDS: Fentanyl 100 MCG/2 ML VIAL SLOW IVP PRN ×2 (01:59→06:15)
[2020-12-07] MEDS: Levothyroxine 150 MCG TAB PO SCH (06:15)
[2020-12-07] MEDS: Meropenem 2 GM in Sodium Chloride 0.9% 100 ML IVPB SCH ×3 (06:15→22:36)
[2020-12-07 06:46] LABS: PTT 38.7 sec (22.9-36.1); Prothrombin Time 13.3 sec (12.0-14.7)
[2020-12-07 07:04] LABS: ALT (SGPT) 70 U/L (8-55); AST (SGOT) 39 U/L (5-34); Albumin 3.5 g/dL (3.5-5.0); Alkaline Phosphatase 106 U/L (40-110); Anion Gap 14 mmol/L (10-20); BUN (Urea Nitrogen) 22 mg/dL (8.9-20.6); Bilirubin, Total 1.1 mg/dL (0.2-1.2); Calc. Creatinine Clearance 152 mL/min (70-130); Calcium 9.1 mg/dL (7.8-10.44); Carbon Dioxide 23 mmol/L (22-29); Cardiac Risk 10.4 (Less than 4.5); Chloride 103 mmol/L (98-107); Cholesterol 176 mg/dl (< 200 Desired); Globulin 3.9 g/dL (2.4-3.5); Glucose 99 mg/dL (70-105); HDL Cholesterol 17 mg/dL (>60 Neg Risk); LDL Cholesterol, Calculated 117 mg/dL; Magnesium 2.3 mg/dL (1.6-2.6); Potassium 4.8 mmol/L (3.5-5.1); Protein, Total 7.4 g/dL (6.0-8.3); Sodium 135 mmol/L (136-145); Triglycerides 211 mg/dL (Less than 150)
[2020-12-07] MEDS: Fluconazole In NaCl,Iso-Osm 200 MG in Premix Bag 1 BAG IVPB SCH ×2 (08:14→21:06)
[2020-12-07] MEDS: Enoxaparin Sodium 40 MG/0.4 ML SYRINGE SC SCH (08:14)
[2020-12-07] MEDS: Pantoprazole 40 MG VIAL IVP SCH (08:14)
[2020-12-07] MEDS: Propranolol 40 MG TAB PO SCH ×3 (08:20→21:05)
[2020-12-07] MEDS ORDERED: fentaNYL 75 mcg/hour Patch TD SCH (15:00)
[2020-12-07 18:22] LABS: #Basophils 0.1 thou/uL (0.0-0.2); #Eosinphils 0.3 thou/uL (0.0-0.7); #Lymphocytes 3.8 thou/uL (1.20-3.40); #Monocytes 0.9 thou/uL (0.11-0.59); #Neutrophils 5.2 thou/uL (1.40-6.50); %Basophils 0.8 % (0.0-1.0); %Eosinophils 3.3 % (0.0-10.0); %Lymphocytes 37.1 % (21.0-51.0); %Monocytes 9.1 % (0.0-10.0); %Neutrophils 49.7 % (42.0-75.0); Hemoglobin 16.2 g/dL (14.0-18.0); Mean Corpuscular HGB CONC 32.1 g/dL (32.0-36.0); Mean Corpuscular Hemoglobin 29.2 pg (27.0-31.0); Mean Corpuscular Volume 90.7 fL (78.0-98.0); Mean Platelet Volume 9.7 fL (7.4-10.4); Platelet Count 245 thou/uL (130-400); RBC Distribution Width 14.2 % (11.5-14.5); Red Blood Cell (RBC) Count 5.57 mill/uL (4.70-6.10); White Blood Cell (WBC) Count 10.4 thou/uL (4.8-10.8)
--- NOTE | 2020-12-07 18:52 | PRG ---
DATE OF SERVICE: SUBJECTIVE: The patient has developed pain in the left upper quadrant when he takes a deep breath and yawns, quite intense pain. He also feels a sensation in the abdomen when they are flushing the drainage catheter, but is in the different position. He is not eating, just getting all his nutrition through TPN. He is voiding a lot, just passing gas, but no bowel movement obviously, and has been afebrile. OBJECTIVE: VITAL SIGNS: BP 93/64, heart rate 97, respiratory rate 18, and O2 saturation 97. GENERAL: Does not appear in distress. LUNGS: Clear. CARDIAC: S1 and S2, regular rate. ABDOMEN: Tender in the left upper quadrant. He has a midline drainage catheter. EXTREMITIES: He is able to move extremities equally. LABORATORY DATA: The last labs are mostly chemistry from today with a creatinine 0.99, AST 39, ALT 70, albumin 3.5. White cell count needs to be repeated. The catheter-tip culture from the is no growth in 4 days and his urine culture no growth in [address] from the with resolution of left upper quadrant fluid-gas cavity evacuated by percutaneous drain, small leak from the gastric pouch in posterior margin of the cavity persists. ASSESSMENT AND DISCUSSION: Obesity, hypothyroidism, SARS-CoV-2 infection with resolution, leakage at the gastrojejunostomy site with the procedure done in [place] endoscopically. There is still a small leak there and the question now is to what the next step will be. He goes home on TPN and wait hoping that it will heal or if he stays here for more observation. We will go ahead and repeat the CBC. If the white cell count is elevated, I would probably keep him in the hospital to avoid having to come back to the emergency room with an emergency. Job ID: [id number]
--- NOTE | 2020-12-07 19:00 | PRG ---
DATE OF SERVICE: 12/07/2020 SUBJECTIVE: Zachary Pimentel is doing well today. He is on TPN 12 to 14 hours a day and did not. He does complain of upper abdominal pain, which he has had since onset of his surgery. This is not new. His other pains have resolved making this the focus. Today, he was started on a fentanyl patch that was to be changed every 72 hours. We will monitor him and if that controls his pain well enough, perhaps he can go home tomorrow with a fentanyl patch, home TPN, and we can arrange outpatient CT scan early next week of abdomen and pelvis with followup in my office after the CAT scan to determine drain management. His CT-guided drain in left upper quadrant reveals 35 mL in the last 24 hours. It is thin, clear serous, black-colored. Last hemoglobin on 12/01 was 13 and white count 8. Basic metabolic profile normal this morning with normal magnesium, phosphorus, and liver function tests. ASSESSMENT AND PLAN: 1. Resolved COVID illness. 2. Status post Frankie-en-Y gastric bypass. 3. 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 4. Gastrojejunal leak, status post endoscopic suturing by Dr. Montejo. Planned followup of leak next week to assure that resolves and hopefully can start his diet. Status post Frankie-en-Y gastric bypass on 11/03/2020. Job ID: [id number]
[2020-12-07] MEDS: Morphine 4 MG/ML VIAL SLOW IVP PRN (21:02)
[2020-12-07] MEDS: Nortriptyline HCl 25 MG CAP PO SCH (21:05)
[2020-12-07] MEDS: clonazePAM 1 MG TAB PO SCH (21:06)
[2020-12-07] MEDS: SODIUM ACETATE IV SCH (21:33)
[2020-12-07] MEDS: POTASSIUM CHLORIDE IV SCH (21:33)
[2020-12-07] MEDS: [UNRECOGNIZED DRUG - OTHER] IV SCH (21:33)
[2020-12-07] MEDS: CALCIUM GLUCONATE IV SCH (21:33)
[2020-12-08] MEDS: Meropenem 2 GM in Sodium Chloride 0.9% 100 ML IVPB SCH ×3 (06:16→22:34)
[2020-12-08] MEDS: HumaLOG 300 UNITS/3 ML VIAL SC PRN ×2 (06:16→12:37)
[2020-12-08] MEDS: Levothyroxine 150 MCG TAB PO SCH (06:16)
[2020-12-08 07:10] LABS: ALT (SGPT) 82 U/L (8-55); AST (SGOT) 46 U/L (5-34); Albumin 3.5 g/dL (3.5-5.0); Alkaline Phosphatase 116 U/L (40-110); Anion Gap 14 mmol/L (10-20); BUN (Urea Nitrogen) 20 mg/dL (8.9-20.6); Bilirubin, Total 1.2 mg/dL (0.2-1.2); Calc. Creatinine Clearance 162 mL/min (70-130); Calcium 8.9 mg/dL (7.8-10.44); Carbon Dioxide 23 mmol/L (22-29); Cardiac Risk 10.1 (Less than 4.5); Chloride 102 mmol/L (98-107); Cholesterol 172 mg/dl (< 200 Desired); Glucose 124 mg/dL (70-105); HDL Cholesterol 17 mg/dL (>60 Neg Risk); LDL Cholesterol, Calculated 105 mg/dL; Magnesium 2.2 mg/dL (1.6-2.6); Phosphorus 3.3 mg/dL (2.3-4.7); Protein, Total 7.5 g/dL (6.0-8.3); Sodium 134 mmol/L (136-145); Triglycerides 252 mg/dL (Less than 150)
[2020-12-08 08:49] LABS: PTT 36.9 sec (22.9-36.1); Prothrombin Time 13.2 sec (12.0-14.7)
[2020-12-08] MEDS: Fluconazole In NaCl,Iso-Osm 200 MG in Premix Bag 1 BAG IVPB SCH ×2 (09:24→19:51)
[2020-12-08] MEDS: Pantoprazole 40 MG VIAL IVP SCH (09:25)
[2020-12-08] MEDS: Enoxaparin Sodium 40 MG/0.4 ML SYRINGE SC SCH (09:25)
[2020-12-08] MEDS: Propranolol 40 MG TAB PO SCH ×3 (09:25→19:52)
[2020-12-08] MEDS: Morphine 4 MG/ML VIAL SLOW IVP PRN ×2 (14:48→19:17)
--- NOTE | 2020-12-08 15:52 | PRG ---
DATE OF SERVICE: 12/08/2020 SUBJECTIVE: Mr. Pimentel is doing well today. He is still having pain. The fentanyl patch does not seem to have helped him much. OBJECTIVE: VITAL SIGNS: Temperature 97.9 degrees, heart rate 99, and blood pressure 117/86. His drain has put out 10 mL in the last 24 hours. It appears mostly the irrigation they were doing twice a day. LUNGS: Clear to auscultation. CARDIAC: Regular rate and rhythm without murmur or gallop. ABDOMEN: Soft and nontender. CT drain bag with clear fluid. LABORATORY DATA: None today. Yesterday, his white count was 10 and hemoglobin 16. ASSESSMENT AND PLAN: Dr. Yeung is seeing him and antibiotics could be discontinued at some point. The patient's Accu-Cheks are slightly elevated and his insulin and his TPN will be increased. This Accu-Chek elevation is probably due to the TPN feedings he is getting over a short period of time to give him IV free period of time today to ambulate. At this point, the patient can be discharged home because of lack of pain control. No TPN at home has been arranged. The patient is also very reluctant to go home as he has been readmitted 3 times with different problems. We will continue to monitor him. Perhaps he can go home later in the week. Perhaps he will be here next week early, at which time, we will have a CAT scan abdomen to follow up the leak and hopefully advance his diet as tolerated. Job ID: [id number]
--- NOTE | 2020-12-08 16:59 | PRG ---
DATE OF SERVICE: 12/08/2020 SUBJECTIVE: Still having pain in the left upper quadrant when he takes a deep breath, helped by morphine injections, on TPN, passing gas, but not much bowel movements. Voiding without difficulty. OBJECTIVE: VITAL SIGNS: Temperature has been normal. T-max 98.1, BP 108/73, respiratory rate 12. Little bit tachycardic, saturating 96 on room air. GENERAL: Appears in no distress. LUNGS: Clear. HEART: S1 and S2, regular rate. ABDOMEN: Tender in the left upper quadrant, mildly so. Drain in the midline. The output of the drain had been 48 mL, it is down to 10 mL now. ASSESSMENT AND DISCUSSION: Obesity, hypothyroidism, SARS-CoV-2 infection with resolution, leakage of gastrojejunostomy site with closure procedure done in [place] endoscopically and small leak present, question of how big it is, seems like the output from the drain is decreasing progressively and TPN will be continued and antimicrobials for a week or two and see if the leak ceases and then can resume oral intake without further issues. If he has recurrence, then he will need to have a repeat of endoscopic procedure performed in [place]. Job ID: [id number]
[2020-12-08] MEDS ORDERED: Clopidogrel Bisulfate 75 MG TAB ONE (19:31)
[2020-12-08] MEDS: clonazePAM 1 MG TAB PO SCH (19:52)
[2020-12-08] MEDS: Nortriptyline HCl 25 MG CAP PO SCH (19:52)
[2020-12-08] MEDS ORDERED: SODIUM ACETATE IV SCH (22:00)
[2020-12-08] MEDS ORDERED: [UNRECOGNIZED DRUG - OTHER] IV SCH (22:00)
[2020-12-08] MEDS ORDERED: POTASSIUM CHLORIDE IV SCH (22:00)
[2020-12-08] MEDS ORDERED: CALCIUM GLUCONATE IV SCH (22:00)
[2020-12-09] MEDS: Morphine 4 MG/ML VIAL SLOW IVP PRN ×2 (03:46→19:55)
[2020-12-09] MEDS: Levothyroxine 150 MCG TAB PO SCH (06:17)
[2020-12-09] MEDS: HumaLOG 300 UNITS/3 ML VIAL SC PRN (06:17)
[2020-12-09] MEDS: Meropenem 2 GM in Sodium Chloride 0.9% 100 ML IVPB SCH ×3 (06:31→21:48)
--- NOTE | 2020-12-09 09:49 | PRG ---
DATE OF SERVICE: 12/09/2020 SUBJECTIVE: Zachary Pimentel is doing well. He did not walk yesterday. We stressed to him the importance of walking. He has not any nausea or vomiting. OBJECTIVE: VITAL SIGNS: Temperature 98.1 degrees, heart rate 80, blood pressure 105/68. LUNGS: Clear to auscultation. CARDIAC: Regular rate and rhythm without murmur or gallop. ABDOMEN: Soft, nontender. The patient has TPN infusing. He is n.p.o. His percutaneous drain in left upper quadrant has only put out 35 mL in last 24 hours. ASSESSMENT: 1. Morbid obesity. 2. Frankie-en-Y gastric bypass. 3. Postoperative COVID illness. 4. Postoperative arteriovenous malformations. 5. Postoperative gastrojejunostomy leak. PLAN: Continue TPN 12 to 14 hours a day and plan to repeat his CAT scan on Sunday. Hopefully, he can start the diet at that time. Job ID: [id number]
[2020-12-09] MEDS: Enoxaparin Sodium 40 MG/0.4 ML SYRINGE SC SCH (09:58)
[2020-12-09] MEDS: Fluconazole In NaCl,Iso-Osm 200 MG in Premix Bag 1 BAG IVPB SCH ×2 (09:58→19:48)
[2020-12-09] MEDS: Propranolol 40 MG TAB PO SCH ×3 (09:59→19:48)
[2020-12-09] MEDS: Pantoprazole 40 MG VIAL IVP SCH (09:59)
[2020-12-09] MEDS: Ondansetron PF 4 MG/2 ML Vial IVP PRN (10:16)
[2020-12-09] MEDS: clonazePAM 1 MG TAB PO SCH (19:48)
[2020-12-09] MEDS: Nortriptyline HCl 25 MG CAP PO SCH (19:48)
[2020-12-09] MEDS: POTASSIUM CHLORIDE IV SCH (21:48)
[2020-12-09] MEDS: CALCIUM GLUCONATE IV SCH (21:48)
[2020-12-09] MEDS: [UNRECOGNIZED DRUG - OTHER] IV SCH (21:48)
[2020-12-09] MEDS: SODIUM ACETATE IV SCH (21:48)
[2020-12-10] MEDS: Levothyroxine 150 MCG TAB PO SCH (05:36)
[2020-12-10] MEDS: Morphine 4 MG/ML VIAL SLOW IVP PRN ×2 (05:43→11:43)
[2020-12-10] MEDS: Meropenem 2 GM in Sodium Chloride 0.9% 100 ML IVPB SCH (05:58)
[2020-12-10 06:19] LABS: Band 7 % (5-11); Eosinophils 2 % (0-10); Hemoglobin 13.3 g/dL (14.0-18.0); Hypochromia SLIGHT = 6-15 cells (100X) (0-5/hpf); Lymphocytes 27 % (21-51); MDiff Complete? YES; Mean Corpuscular HGB CONC 31.8 g/dL (32.0-36.0); Mean Corpuscular Volume 91.2 fL (78.0-98.0); Mean Platelet Volume 10.7 fL (7.4-10.4); Monocytes 14 % (0-10); Neutrophil 41 % (42-75); Platelet Count 171 thou/uL (130-400); Platelet Morphology Comment Appears Adequate; RBC Distribution Width 13.9 % (11.5-14.5); Reactive Lymphocytes 9 % (0-10); White Blood Cell (WBC) Count 7.9 thou/uL (4.8-10.8)
[2020-12-10 06:33] LABS: ALT (SGPT) 68 U/L (8-55); AST (SGOT) 38 U/L (5-34); Albumin 3.1 g/dL (3.5-5.0); Alkaline Phosphatase 124 U/L (40-110); Anion Gap 9 mmol/L (10-20); BUN (Urea Nitrogen) 16 mg/dL (8.9-20.6); Calc. Creatinine Clearance 162 mL/min (70-130); Calcium 8.7 mg/dL (7.8-10.44); Carbon Dioxide 33 mmol/L (22-29); Chloride 98 mmol/L (98-107); Globulin 3.4 g/dL (2.4-3.5); Glucose 96 mg/dL (70-105); Potassium 4.6 mmol/L (3.5-5.1); Protein, Total 6.5 g/dL (6.0-8.3); Sodium 135 mmol/L (136-145)
--- NOTE | 2020-12-10 10:23 | CT ---
CT ABDOMEN NONCONTRAST: Date: 12/10/2020 HISTORY: Abdominal abscess. Possible leak. Follow-up. COMPARISON: 12/03/2020. FINDINGS: Images were obtained before oral contrast administration and approximately 5 minutes after administra tion of 60 mL Gastrografin based oral contrast. The cavity immediately lateral to the gastric remnant is now completely decompressed with the drainag e coil in place. There is no contrast within the cavity on the delayed images after oral contrast has been administered. The hyperdensities that are present are consistent with bridger and suture materi al. There is no evidence of obstruction, as the oral contrast that was administered passes into the m id to distal jejunum. There is some reflux of the oral contrast into the duodenum, as far proximally as the duodenal bulb. Mild atelectasis at the left lung base. No new abnormalities are evident. IMPRESSION: No evidence of ongoing leak from the gastric pouch. Abscess cavity now completely decompressed. Findings discussed with Dr. Fox at the time of the exam. CODE CR. POS: BST
[2020-12-10] MEDS: Fluconazole In NaCl,Iso-Osm 200 MG in Premix Bag 1 BAG IVPB SCH (10:38)
[2020-12-10] MEDS: Propranolol 40 MG TAB PO SCH ×3 (10:39→20:18)
[2020-12-10] MEDS: Enoxaparin Sodium 40 MG/0.4 ML SYRINGE SC SCH (10:39)
[2020-12-10] MEDS: Pantoprazole 40 MG VIAL IVP SCH (10:39)
--- NOTE | 2020-12-10 11:53 | PRG ---
DATE OF SERVICE: SUBJECTIVE: Mr. Pimentel is doing well today. He has had minimal drainage out of his CT-guided drain since the . This has been mostly irrigation in appearance. CAT scan of the abdomen and pelvis this morning before contrast and after contrast revealed absence of any evidence of leak. The patient states that he feels better. Last night, his fentanyl patch was removed overly sedated, sleepy, and his blood pressure systolic in the upper 80s while his heart rate and respiratory rate were normal. OBJECTIVE: VITAL SIGNS: Temperature 98.3 degrees, heart rate 80, and blood pressure 106/72. GENERAL: This morning, he is awake and alert. LUNGS: Clear to auscultation. CARDIAC: Regular rate and rhythm without murmur or gallop. ABDOMEN: Soft, nontender. EXTREMITIES: Unremarkable. Drainage from his drain is 21 mL, this is saline in appearance, which is what they are irrigating this twice a day 10 cc. ASSESSMENT AND PLAN: Gastrojejunal leak. We will plan to advance him to a bariatric liquid diet. Had a conversation with him regarding the possibility of being discharged home this weekend. We will continue the TPN today and if he is doing well, discontinue that tomorrow. As far as his diet, we will plan for him to stay on liquids the next few days. Advance to bariatric pureed after about a week and slowly advance to a soft bariatric diet after that. A prescription for Lortab Elixir has been sent to his pharmacy. He is to resume his home medications. This weekend, if he is doing well, his CT-guided drain can be removed and he can be discharged home. Job ID: [id number]
[2020-12-10] MEDS ORDERED: Iopamidol 370 76% 50 ML VIAL FS ONE (14:53)
[2020-12-10] MEDS: Hydrocodone-Acetamin 15 ML UDCUP PO PRN (20:18)
[2020-12-10] MEDS: Nortriptyline HCl 25 MG CAP PO SCH (20:18)
[2020-12-10] MEDS: Losartan 25 MG TAB PO SCH (20:19)
[2020-12-10] MEDS: clonazePAM 1 MG TAB PO SCH (20:19)
[2020-12-10] MEDS: POTASSIUM CHLORIDE IV SCH (21:51)
[2020-12-10] MEDS: CALCIUM GLUCONATE IV SCH (21:51)
[2020-12-10] MEDS: [UNRECOGNIZED DRUG - OTHER] IV SCH (21:51)
[2020-12-10] MEDS: SODIUM ACETATE IV SCH (21:51)
[2020-12-11] MEDS: Morphine 4 MG/ML VIAL SLOW IVP PRN ×3 (01:07→21:41)
[2020-12-11] MEDS: Levothyroxine 150 MCG TAB PO SCH (05:10)
[2020-12-11] MEDS ORDERED: Non-Formulary Item 1 EACH (Dexlansoprazole [Dexilant] 60 MG Cap.Dr.Bp) PO SCH (09:00)
[2020-12-11] MEDS ORDERED: Lisdexamfetamine Dimesylate [Vyvanse] 70 MG Capsule PO SCH (09:00)
[2020-12-11] MEDS: Enoxaparin Sodium 40 MG/0.4 ML SYRINGE SC SCH (10:13)
[2020-12-11] MEDS: Pantoprazole 40 MG GRANULES PACKET PO SCH (10:13)
[2020-12-11] MEDS: Propranolol 40 MG TAB PO SCH ×3 (10:13→20:33)
[2020-12-11] MEDS: Multivit, Chewable SF 1 TAB PO SCH (11:09)
--- NOTE | 2020-12-11 11:27 | PRG ---
DATE OF SERVICE: 12/11/2020 SUBJECTIVE: Mr. Pimentel remains in his bed on the surgical floor. He is postoperative day #38 from laparoscopic Frankie-en-Y gastric bypass. He has had a series of problems after his surgery including an abscess and a leak from his gastric pouch. The leak was repaired in [place] endoscopically with endoscopic suturing. CT scan obtained yesterday showed no evidence of residual leak. He was started on a clear liquid diet yesterday, which he is tolerating. He tells me he is not having any discomfort and he is keeping everything down. His drain output is minimal. OBJECTIVE: VITAL SIGNS: On examination, he is afebrile, pulse 78, blood pressure 106/67. LUNGS: Clear to auscultation. ABDOMEN: Soft with normoactive bowel sounds. Drain is intact entering in the epigastrium, but there is minimal output. LABORATORY DATA: There are no labs today. ASSESSMENT: The patient seems stable following treatment of a gastric pouch leak. We will advance him to bariatric full liquids today including protein shakes. We will wean his TPN off today. Assuming he remains stable for the rest of today, I would anticipate discharge tomorrow and will likely remove his drain prior to discharge. Job ID: [id number]
[2020-12-11 13:51] LABS: #Basophils 0.1 thou/uL (0.0-0.2); #Eosinphils 0.3 thou/uL (0.0-0.7); #Lymphocytes 3.9 thou/uL (1.20-3.40); #Neutrophils 3.8 thou/uL (1.40-6.50); %Basophils 1.2 % (0.0-1.0); %Eosinophils 3.6 % (0.0-10.0); %Lymphocytes 42.8 % (21.0-51.0); %Monocytes 10.7 % (0.0-10.0); %Neutrophils 41.8 % (42.0-75.0); Hemoglobin 14.1 g/dL (14.0-18.0); Mean Corpuscular HGB CONC 33.9 g/dL (32.0-36.0); Mean Corpuscular Hemoglobin 31.1 pg (27.0-31.0); Mean Platelet Volume 10.7 fL (7.4-10.4); Platelet Count 173 thou/uL (130-400); RBC Distribution Width 14.2 % (11.5-14.5); Red Blood Cell (RBC) Count 4.52 mill/uL (4.70-6.10); White Blood Cell (WBC) Count 9.1 thou/uL (4.8-10.8)
[2020-12-11 14:10] LABS: ALT (SGPT) 77 U/L (8-55); AST (SGOT) 46 U/L (5-34); Albumin 3.1 g/dL (3.5-5.0); Alkaline Phosphatase 132 U/L (40-110); Anion Gap 11 mmol/L (10-20); BUN (Urea Nitrogen) 15 mg/dL (8.9-20.6); Bilirubin, Total 0.9 mg/dL (0.2-1.2); Calc. Creatinine Clearance 138 mL/min (70-130); Calcium 8.9 mg/dL (7.8-10.44); Carbon Dioxide 31 mmol/L (22-29); Chloride 99 mmol/L (98-107); Globulin 3.5 g/dL (2.4-3.5); Glucose 142 mg/dL (70-105); Potassium 4.7 mmol/L (3.5-5.1); Protein, Total 6.6 g/dL (6.0-8.3); Sodium 136 mmol/L (136-145)
--- NOTE | 2020-12-11 18:51 | PRG ---
DATE OF SERVICE: 12/11/2020 SUBJECTIVE: Mr. Pimentel is doing better. His pain has improved. He is actually starting eating, getting nutrition via the oral route with no major issues. OBJECTIVE: VITAL SIGNS: He is afebrile and BP 100/65. LUNGS: Clear. ABDOMEN: Not tender. HEART: S1 and S2. Regular rate. NEUROLOGIC: Nonfocal. LABORATORY DATA: White cell count 9.1, hemoglobin 14, platelets 173. Creatinine 1.09. AST 46, ALT 77, alkaline phosphatase 132, bilirubin 0.9, albumin 3.1. So, the cultures have yielded Chanell albicans, Strep anginosus, Abiotrophia, Veillonella, and Haemophilus. ASSESSMENT AND DISCUSSION: Obesity, hypothyroidism, SARS-CoV2 infection with resolution, leakage at gastrojejunostomy site with closure, procedure done in [place] and now it seems like the inflammatory process is resolving and the leak presumably has ceased according to the latest imaging study. We have to bear in mind that frequently those patients sometimes will have intermittent leaking from the area and we are still not yet completely out of the matias and he may have subsequent recrudescence of inflammatory process, so we will have to keep monitoring him for a while. It looks like the antimicrobials have been discontinued and he seems to be doing well so far. So, it looks like he is going home off total parenteral nutrition, on oral feedings and off antimicrobials as well. Job ID: [id number]
[2020-12-11] MEDS: Nortriptyline HCl 25 MG CAP PO SCH (20:33)
[2020-12-11] MEDS: Losartan 25 MG TAB PO SCH (20:33)
[2020-12-12] MEDS: Morphine 4 MG/ML VIAL SLOW IVP PRN (02:36)
[2020-12-12] MEDS: Levothyroxine 150 MCG TAB PO SCH (05:39)
[2020-12-12] MEDS: Propranolol 40 MG TAB PO SCH ×2 (09:02→16:42)
[2020-12-12] MEDS: Enoxaparin Sodium 40 MG/0.4 ML SYRINGE SC SCH (09:05)
[2020-12-12] MEDS: Pantoprazole 40 MG GRANULES PACKET PO SCH (09:05)
[2020-12-12] MEDS: Multivit, Chewable SF 1 TAB PO SCH (10:00)
[2020-12-12 10:59] VITALS: TEMP 98.1
[2020-12-12 15:11] VITALS: BP 112/74
[2020-12-12] MEDS: Hydrocodone-Acetamin 15 ML UDCUP PO PRN (17:35)
== END 2020-12-12 18:05 | disposition home or self-care (01) | DRG 394 ==
LOC: SURG A 11-30 05:27
PROVIDERS: ADMIT Specialist; ATTEND Specialist
PROC: 02H633Z Insertion of Infusion Device into Right Atrium, Percutaneous Approach (ICD-10-PCS; principal; 2020-12-03)
PROC: B548ZZA Ultrasonography of Superior Vena Cava, Guidance (ICD-10-PCS; 2020-12-03)
DX: K95.89 Other complications of other bariatric procedure (principal); Z16.11 Resistance to penicillins; Z86.16 Personal history of COVID-19; K21.9 Gastro-esophageal reflux disease without esophagitis; F41.9 Anxiety disorder, unspecified; F43.10 Post-traumatic stress disorder, unspecified; I10 Essential (primary) hypertension; E03.9 Hypothyroidism, unspecified; B96.20 Unspecified Escherichia coli [E. coli] as the cause of diseases classified elsewhere; E66.01 Morbid (severe) obesity due to excess calories; Y83.8 Other surgical procedures as the cause of abnormal reaction of the patient, or of later complication, without mention of misadventure at the time of the procedure; Z68.34 Body mass index [BMI] 34.0-34.9, adult; Z79.899 Other long term (current) drug therapy; Z88.5 Allergy status to narcotic agent; Z79.890 Hormone replacement therapy
CPT/HCPCS: 36415; 36416; 36569; 74150; 74160; 80053; 80061; 81001; 83735; 84100; 84134; 85025; 85610; 85730; 87071; 87086; C1751; C9113; J1450; J1644; J1650; J1815; J1885; J2001; J2185; J2270; J2405; J2543; J3010; J3475; J3480; J3490; Q9967

== ENCOUNTER 2022-03-29 17:47 | Emergency (ER) | payer BC ==
[2022-03-29 19:06] LABS: #Eosinphils 0.2 thou/uL (0.0-0.7); #Lymphocytes 2.8 thou/uL (1.20-3.40); #Monocytes 0.6 thou/uL (0.11-0.59); #Neutrophils 4.6 thou/uL (1.40-6.50); %Basophils 0.6 % (0.0-1.0); %Eosinophils 2.7 % (0.0-10.0); %Lymphocytes 33.8 % (21.0-51.0); %Monocytes 7.7 % (0.0-10.0); %Neutrophils 55.2 % (42.0-75.0); Hemoglobin 17.5 g/dL (14.0-18.0); Mean Corpuscular HGB CONC 33.5 g/dL (32.0-36.0); Mean Corpuscular Hemoglobin 32.9 pg (27.0-31.0); Mean Corpuscular Volume 98.3 fL (78.0-98.0); Mean Platelet Volume 9.2 fL (7.4-10.4); Platelet Count 181 thou/uL (130-400); RBC Distribution Width 11.3 % (11.5-14.5); Red Blood Cell (RBC) Count 5.32 mill/uL (4.70-6.10); White Blood Cell (WBC) Count 8.3 thou/uL (4.8-10.8)
[2022-03-29 19:29] LABS: ALT (SGPT) 36 U/L (8-55); AST (SGOT) 20 U/L (5-34); Albumin 4.2 g/dL (3.5-5.0); Alkaline Phosphatase 77 U/L (40-110); Anion Gap 12 mmol/L (10-20); BUN (Urea Nitrogen) 13 mg/dL (8.9-20.6); Bilirubin, Total 1.4 mg/dL (0.2-1.2); Calc. Creatinine Clearance 0 mL/min (70-130); Calcium 9.1 mg/dL (7.8-10.44); Carbon Dioxide 26 mmol/L (22-29); Chloride 107 mmol/L (98-107); Globulin 2.4 g/dL (2.4-3.5); Glucose 97 mg/dL (70-105); Lipase 27 U/L (8-78); Potassium 3.7 mmol/L (3.5-5.1); Protein, Total 6.6 g/dL (6.0-8.3); Sodium 141 mmol/L (136-145)
== END 2022-03-29 22:02 | disposition home or self-care (01) ==
LOC: ERS 17:47
DX: R10.13 Epigastric pain (principal); E03.9 Hypothyroidism, unspecified; K21.9 Gastro-esophageal reflux disease without esophagitis; I10 Essential (primary) hypertension; F17.290 Nicotine dependence, other tobacco product, uncomplicated; Z79.899 Other long term (current) drug therapy
CPT/HCPCS: 74177; 80053; 83690; 85025

== ENCOUNTER 2024-04-22 15:33 | Emergency (ER) | payer BC, OTHER ==
[2024-04-22] MEDS ORDERED: Ibuprofen 200 MG TAB ONE (16:11)
[2024-04-22] MEDS ORDERED: HYDROcodone/Acetaminophen 5/325 mg Tablet ONE (16:12)
== END 2024-04-22 16:58 | disposition home or self-care (01) ==
LOC: ERS 15:33
DX: S62.631A Displaced fracture of distal phalanx of left index finger, initial encounter for closed fracture (principal); S62.633A Displaced fracture of distal phalanx of left middle finger, initial encounter for closed fracture; I10 Essential (primary) hypertension; F17.290 Nicotine dependence, other tobacco product, uncomplicated; E03.9 Hypothyroidism, unspecified; X50.0XXA Overexertion from strenuous movement or load, initial encounter; Y93.89 Activity, other specified; Z55.0 Illiteracy and low-level literacy; Z79.899 Other long term (current) drug therapy

== ENCOUNTER 2024-10-24 12:31 | Outpatient (CLI) | payer BC | END 2024-10-24 12:32 | disposition home or self-care (01) | LOC: BICCT 12:31 | PROVIDERS: ATTEND Internal Medicine | DX: R10.13 Epigastric pain (principal); R11.0 Nausea; K59.00 Constipation, unspecified; Q26.6 Portal vein-hepatic artery fistula; Z90.49 Acquired absence of other specified parts of digestive tract | CPT/HCPCS: 74177 ==

== ENCOUNTER 2025-01-09 09:22 | Outpatient (CLI) | payer BC ==
[2025-01-09] MEDS ORDERED: Magnevist 469MG/ML 20 ML VIAL ONE (11:30)
== END 2025-01-09 09:23 | disposition home or self-care (01) ==
LOC: MRI 09:22
PROVIDERS: ATTEND Internal Medicine Gastroenterology
DX: R10.13 Epigastric pain (principal); R10.11 Right upper quadrant pain; F32.A Depression, unspecified; B20 Human immunodeficiency virus [HIV] disease; R63.4 Abnormal weight loss; Z98.84 Bariatric surgery status
CPT/HCPCS: 74183; 76376